=== PATIENT | female | born 2000 | race American Indian/Alaskan Native ===

== ENCOUNTER 2018-03-30 00:09 | Emergency (ER) | payer MEDICAID, OTHER ==
[2018-03-30 00:32] VITALS: BP 101/64
--- NOTE | 2018-03-30 01:20 | EDM.PDOC ---
ED HPI GENERAL MEDICAL PROBLEM - General Chief Complaint: Genitourinary Problem Stated Complaint: UTI [id number] Time Seen by Provider: 03/30/18 00:30 Source of Information: Reports: Patient History Limitations: Reports: No Limitations - History of Present Illness INITIAL COMMENTS - FREE TEXT/NARRATIVE: c/o low pelvic pain, yellow discharge starting yesterday. Admits unprotected sex. 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 [No Known Home Meds] 06/02/16 [History] Past Medical History Respiratory History: Reports: Asthma SCREEN ROLLER History: Reports: Other (See Below) Other SCREEN ROLLER History: StD in November. Psychiatric History: Reports: Dementia Social & Family History - Family History Family Medical History: Noncontributory - Tobacco Use Smoking Status *Q: Current Every Day Smoker Years of Tobacco use: 3 Packs/Tins Daily: 1 - Caffeine Use Caffeine Use: Reports: Soda - Recreational Drug Use Recreational Drug Use: No ED ROS GENERAL - Review of Systems Review Of Systems: ROS reveals no pertinent complaints other than HPI. ED EXAM, RENAL/ - Physical Exam Exam: See Below Exam Limited By: No Limitations General Appearance: Alert, No Apparent Distress, Anxious Eye Exam: Bilateral Eye: PERRL Ears: Hearing Grossly Normal Throat/Mouth: Normal Inspection, Normal Voice Head: Atraumatic, Normocephalic Respiratory/Chest: No Respiratory Distress, Lungs Clear Cardiovascular: Normal Peripheral Pulses, Regular Rate, Rhythm GI/Abdominal: Normal Bowel Sounds, Soft, Tender (mild supropubic). No: Distended, Guarding (Female) Exam: Normal External Exam, Normal Speculum Exam, Adnexal Tenderness , Cervix Motion Tenderness Extremities: Normal Range of Motion Neurological: Alert, Oriented, Normal Cognition Psychiatric: Normal Affect Skin Exam: Warm, Dry, Intact, Normal Color Course - Vital Signs Last Recorded V/S: Last Vital Signs Temp 98.3 F 03/30/18 00:19 Pulse 104 H 03/30/18 00:19 Resp 16 03/30/18 00:19 BP 101/64 03/30/18 00:19 Pulse Ox 97 03/30/18 00:19 - Orders/Labs/Meds Orders: Active Orders 24 hr Category Date Time Status CHLAMYDIA AND GONORRHEA BY TMA Urgent Lab 03/30/18 00:40 Received HEP C VIRUS AB [REF] Urgent Lab 03/30/18 01:27 Received HIV 1,2 AB/AG COMBO SCREEN [REF] Urgent Lab 03/30/18 01:27 Received UA W/MICROSCOPIC [URIN] Stat Lab 03/30/18 00:40 Ordered Labs: Laboratory Tests 03/30/18 03/30/18 Range/Units 00:40 00:40 Urine Color Yellow (YELLOW) Urine Appearance Cloudy (CLEAR) Urine pH 7.0 (5.0-9.0) Ur Specific [place] 1.020 (1.005-1.030) Urine Protein 100 H (NEGATIVE) Urine Glucose (UA) Negative (NEGATIVE) Urine Ketones Negative (NEGATIVE) Urine Occult Blood Moderate H (NEGATIVE) Urine Nitrite Negative (NEGATIVE) Urine Bilirubin Negative (NEGATIVE) Urine Urobilinogen 0.2 (0.2-1.0) mg/dL Ur Leukocyte Esterase Large H (NEGATIVE) Urine RBC 40-50 H /HPF Urine WBC >100 H (0-5/HPF) /HPF Ur Epithelial Cells Rare /HPF Amorphous Sediment Rare (0/HPF) /HPF Urine Bacteria Few (0-FEW/HPF) /HPF Urine Mucus Rare /LPF Urine HCG, Qual Negative Meds: Medications Discontinued Medications Generic Name Dose Route Start Last Admin Trade Name Freq PRN Reason Stop Dose Admin Azithromycin 1,000 mg 03/30/18 01:13 03/30/18 01:23 Zithromax PO 03/30/18 01:14 1,000 mg ONETIME ONE Administration Ceftriaxone Sodium 250 mg/ 0 mg 03/30/18 01:13 03/30/18 01:24 Lidocaine HCl 0.9 ml IM 03/30/18 01:14 250 inj ONETIME ONE Administration Departure - Departure Time of Disposition: 01:21 Disposition: Home, Self-Care 01 Condition: Good Clinical Impression: UTI, Urinary tract infectious disease, High risk heterosexual behavior - Discharge Information *PRESCRIPTION DRUG MONITORING PROGRAM REVIEWED*: Not Applicable Instructions: Sexually Transmitted Disease, [id number] Referrals: PCP,None [Primary Care Provider] - Forms: ED Department Discharge Additional Instructions: macrobid one twice daily for one week practice safe sex test results return approximately one week tylenol or ibuprofen for discomfort - My Orders Last 24 Hours: My Active Orders 03/30/18 00:40 CHLAMYDIA AND GONORRHEA BY TMA Urgent UA W/MICROSCOPIC [URIN] Stat 03/30/18 01:27 HEP C VIRUS AB [REF] Urgent HIV 1,2 AB/AG COMBO SCREEN [REF] Urgent - Assessment/Plan Last 24 Hours: My Active Orders 03/30/18 00:40 CHLAMYDIA AND GONORRHEA BY TMA Urgent UA W/MICROSCOPIC [URIN] Stat 03/30/18 01:27 HEP C VIRUS AB [REF] Urgent HIV 1,2 AB/AG COMBO SCREEN [REF] Urgent
[2018-03-30] MEDS: Azithromycin 250 MG Tab PO ONE (01:23)
[2018-03-30] MEDS: cefTRIAXone 250 MG, Lidocaine 1% 0.9 ML IM ONE ×2 (01:24)
== END 2018-03-30 01:44 | disposition home or self-care (01) ==
LOC: DL.ED 00:09
DX: N39.0 Urinary tract infection, site not specified (principal); J45.909 Unspecified asthma, uncomplicated; F17.210 Nicotine dependence, cigarettes, uncomplicated; Z72.51 High risk heterosexual behavior
CPT/HCPCS: 36415; 81001; 81025; 86803; 87210; 87389; 87491; 87591; 96372; 99283; A9270-GY; J0696

== ENCOUNTER 2018-11-09 12:52 | Emergency (ER) | payer MEDICAID, OTHER ==
[2018-11-09 12:58] VITALS: BP 118/70; PULSE 93
[2018-11-09] MEDS ORDERED: cefTRIAXone 250 MG, Lidocaine 1% 0.9 ML IM ONE ×2 (14:05)
[2018-11-09] MEDS ORDERED: Azithromycin 250 MG Tab PO ONE (14:05)
--- NOTE | 2018-11-09 14:10 | EDM.PDOC ---
ED HPI GENERAL MEDICAL PROBLEM - General Chief Complaint: Genitourinary Problem Stated Complaint: UTI Time Seen by Provider: 11/09/18 13:58 Source of Information: Reports: Patient History Limitations: Reports: No Limitations - History of Present Illness INITIAL COMMENTS - FREE TEXT/NARRATIVE: This 18 yo female patient reports to the ED with urinary frequency and burning for the past 3 days. The patient reports she did have unprotected sexual intercourse prior to symptom onset and questions about possible STD's. Onset Date: 11/06/18 Duration: Constant, Getting Worse Location: Reports: Other Quality: Reports: Burning, Other (frequency) Severity: Moderate Improves with: Reports: None Worsens with: Reports: None Context: Reports: Other Associated Symptoms: Reports: No Other Symptoms Pelvic Pain Score (Numeric/FACES): 7 - Related Data Allergies Allergy/AdvReac Type Severity Reaction Status Date / Time No Known Allergies Allergy Verified 11/09/18 12:58 Home Meds: Home Meds . 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 Psychiatric History: Reports: Depression, Suicide Attempt Social & Family History - Family History Family Medical History: Noncontributory - Tobacco Use Smoking Status *Q: Current Every Day Smoker Years of Tobacco use: 2 Packs/Tins Daily: 0.2 Second Hand Smoke Exposure: Yes - Caffeine Use Caffeine Use: Reports: None - Recreational Drug Use Recreational Drug Use: No ED ROS GENERAL - Review of Systems Review Of Systems: ROS reveals no pertinent complaints other than HPI. ED EXAM, RENAL/ - Physical Exam Exam: See Below Exam Limited By: No Limitations General Appearance: Alert, WD/WN, Mild Distress Eye Exam: Bilateral Eye: EOMI, Normal Inspection, PERRL Ears: Normal External Exam, Normal Canal, Hearing Grossly Normal, Normal TMs Nose: Normal Inspection, Normal Mucosa, No Blood Throat/Mouth: Normal Inspection, Normal Lips, Normal Teeth, Normal Gums, Normal Oropharynx, Normal Voice, No Airway Compromise Head: Atraumatic, Normocephalic Neck: Normal Inspection, Supple, Non-Tender, Full Range of Motion Respiratory/Chest: No Respiratory Distress, Lungs Clear, Normal Breath Sounds, No Accessory Muscle Use, Chest Non-Tender Cardiovascular: Normal Peripheral Pulses, Regular Rate, Rhythm, No Edema, No Gallop, No JVD, No Murmur, No Rub GI/Abdominal: Normal Bowel Sounds, Soft, Non-Tender, No Organomegaly, No Distention, No Abnormal Bruit, No Mass (Female) Exam: Deferred Rectal (Female) Exam: Deferred Back Exam: Normal Inspection, Full Range of Motion, NT Extremities: Normal Inspection, Normal Range of Motion, Non-Tender, Normal Capillary Refill, No Pedal Edema Neurological: Alert, Oriented, CN II-XII Intact, Normal Cognition, Normal Gait, Normal Reflexes, No Motor/Sensory Deficits Psychiatric: Normal Affect, Normal Mood Skin Exam: Warm, Dry, Intact, Normal Color, No Rash Lymphatic: No Adenopathy Course - Vital Signs Last Recorded V/S: Last Vital Signs Temp 36.4 C 11/09/18 12:56 Pulse 93 11/09/18 12:56 Resp 16 11/09/18 12:56 BP 118/70 11/09/18 12:56 Pulse Ox 99 11/09/18 12:56 - Orders/Labs/Meds Orders: Active Orders 24 hr Category Date Time Status CHLAMYDIA/GC NUCLEIC ACID AMP [MREF] Urgent Lab 11/09/18 13:59 Ordered CULTURE URINE [RM] Stat Lab 11/09/18 13:24 Received Labs: Laboratory Tests 11/09/18 11/09/18 11/09/18 Range/Units 13:24 13:24 13:24 Urine Color Yellow (YELLOW) Urine Appearance Cloudy (CLEAR) Urine pH 5.5 (5.0-9.0) Ur Specific [place] >= 1.030 (1.005-1.030) Urine Protein 100 H (NEGATIVE) Urine Glucose (UA) Negative (NEGATIVE) Urine Ketones Negative (NEGATIVE) Urine Occult Blood Moderate H (NEGATIVE) Urine Nitrite Positive H (NEGATIVE) Urine Bilirubin Negative (NEGATIVE) Urine Urobilinogen 0.2 (0.2-1.0) mg/dL Ur Leukocyte Esterase Moderate H (NEGATIVE) Urine RBC 10-20 H /HPF Urine WBC >100 H (0-5/HPF) /HPF Ur Epithelial Cells Moderate H /HPF Urine Bacteria Many H (0-FEW/HPF) /HPF Urine Mucus Few H /LPF Urine HCG, Qual Negative Urine Opiates Screen Negative (NEGATIVE) Ur Oxycodone Screen Negative (NEGATIVE) Urine Methadone Screen Negative (NEGATIVE) Ur Barbiturates Screen Negative (NEGATIVE) U Tricyclic Antidepress Negative (NEGATIVE) Ur Phencyclidine Scrn Negative (NEGATIVE) Ur Amphetamine Screen Negative (NEGATIVE) U Methamphetamines Scrn Negative (NEGATIVE) Urine MDMA Screen Negative (NEGATIVE) U Benzodiazepines Scrn Negative (NEGATIVE) Urine Cocaine Screen Negative (NEGATIVE) U Marijuana (THC) Screen Negative (NEGATIVE) Meds: Medications Discontinued Medications Generic Name Dose Route Start Last Admin Trade Name Freq PRN Reason Stop Dose Admin Azithromycin 1,000 mg 11/09/18 14:05 Zithromax PO 11/09/18 14:06 ONETIME ONE Ceftriaxone Sodium 250 mg/ 0 mg 11/09/18 14:05 Lidocaine HCl 0.9 ml IM 11/09/18 14:06 ONETIME ONE - Re-Assessments/Exams Free Text/Narrative Re-Assessment/Exam: 11/09/18 14:13 The patient was advised that her urine will be tested for Chlamydia and Gonorrhea, but she was treated for both of these during the visit. The patient' s urine will also be cultured to make sure the antibiotic she was started on will treat her current UTI. Departure - Departure Time of Disposition: 14:07 Disposition: Home, Self-Care 01 Condition: Fair Clinical Impression: Unprotected sexual intercourse UTI (urinary tract infection) Qualifiers: Urinary tract infection type: site unspecified Hematuria presence: with hematuria Qualified Code(s): N39.0 - Urinary tract infection, site not specified - Discharge Information *PRESCRIPTION DRUG MONITORING PROGRAM REVIEWED*: Not Applicable *COPY OF PRESCRIPTION DRUG MONITORING REPORT IN PATIENT SANJU: Not Applicable Instructions: Sexually Transmitted Disease, [id number], Urinary Tract Infection, Adult, [id number] Forms: ED Department Discharge Care Plan Goals: The patient was advised of the examination and lab results during the visit. The patient was given an injection of Rocephin and an oral dose of Azithromycin while in the ED. The patient was discharged with a script for Keflex (500 mg) to take 1 by mouth 2 times per day for 7 days. If the patient has any additional symptoms or concerns, the patient should follow-up with her primary care facility or community health for additional examination and testing. - My Orders Last 24 Hours: My Active Orders 11/09/18 13:24 CULTURE URINE [RM] Stat 11/09/18 13:59 CHLAMYDIA/GC NUCLEIC ACID AMP [MREF] Urgent - Assessment/Plan Last 24 Hours: My Active Orders 11/09/18 13:24 CULTURE URINE [RM] Stat 11/09/18 13:59 CHLAMYDIA/GC NUCLEIC ACID AMP [MREF] Urgent
== END 2018-11-09 14:20 | disposition home or self-care (01) ==
LOC: DL.ED 12:52
DX: N39.0 Urinary tract infection, site not specified (principal); F17.210 Nicotine dependence, cigarettes, uncomplicated; Z11.3 Encounter for screening for infections with a predominantly sexual mode of transmission
CPT/HCPCS: 80305; 81001; 81025; 87086; 87088; 87186; 87491; 87591; 96372; 99283; A9270; J0696; J2001

== ENCOUNTER 2019-10-31 22:54 | Emergency (ER) | payer MEDICAID, OTHER ==
[2019-10-31 23:31] VITALS: BP 130/78; PULSE 116
[2019-10-31] MEDS ORDERED: metroNIDAZOLE 250 MG Tab PO ONE (23:59)
[2019-11-01] MEDS ORDERED: Azithromycin 250 MG Tab PO ONE
--- NOTE | 2019-11-01 00:06 | EDM.PDOC ---
ED HPI GENERAL MEDICAL PROBLEM - General Chief Complaint: Genitourinary Problem Stated Complaint: STD? Time Seen by Provider: 11/01/19 00:01 Source of Information: Reports: Patient History Limitations: Reports: No Limitations - History of Present Illness INITIAL COMMENTS - FREE TEXT/NARRATIVE: c/o few days h/o possible STD. Vaginal Pain Score (Numeric/FACES): 3 - Related Data Allergies Allergy/AdvReac Type Severity Reaction Status Date / Time No Known Allergies Allergy Verified 10/31/19 23:30 Home Meds: Home Meds . 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 Psychiatric History: Reports: Depression, Suicide Attempt Social & Family History - Family History Family Medical History: Noncontributory - Tobacco Use Smoking Status *Q: Current Every Day Smoker Years of Tobacco use: 5 Packs/Tins Daily: 0.1 - Caffeine Use Caffeine Use: Reports: None - Recreational Drug Use Recreational Drug Use: No ED ROS GENERAL - Review of Systems Review Of Systems: Comprehensive ROS is negative, except as noted in HPI. ED EXAM, RENAL/ - Physical Exam Exam: See Below Exam Limited By: No Limitations General Appearance: Alert, WD/WN, No Apparent Distress. No: Active Emesis Ears: Hearing Grossly Normal Throat/Mouth: Normal Voice, No Airway Compromise Head: Atraumatic Neck: Non-Tender, Full Range of Motion Respiratory/Chest: No Respiratory Distress Cardiovascular: Regular Rate, Rhythm GI/Abdominal: Soft, Non-Tender (Female) Exam: Deferred Neurological: Alert, Oriented, Normal Cognition, Normal Gait, No Motor/Sensory Deficits Psychiatric: Normal Affect, Normal Mood Skin Exam: Warm, Dry, Normal Color Lymphatic: No Adenopathy Course - Vital Signs Last Recorded V/S: Last Vital Signs Temp 36.4 C 10/31/19 23:30 Pulse 116 H 10/31/19 23:30 Resp 16 10/31/19 23:30 BP 130/78 10/31/19 23:30 Pulse Ox 100 10/31/19 23:30 - Orders/Labs/Meds Orders: Active Orders 24 hr Category Date Time Status CHLAMYDIA AND GONORRHEA BY TMA Routine Lab 10/31/19 22:55 Received CULTURE URINE [RM] Stat Lab 10/31/19 22:55 Received Labs: Laboratory Tests 10/31/19 Range/Units 22:55 Urine Color Yellow (YELLOW) Urine Appearance Slightly cloudy (CLEAR) Urine pH 6.5 (5.0-9.0) Ur Specific [place] >= 1.030 (1.005-1.030) Urine Protein Negative (NEGATIVE) Urine Glucose (UA) Negative (NEGATIVE) Urine Ketones Negative (NEGATIVE) Urine Occult Blood Trace-lysed H (NEGATIVE) Urine Nitrite Negative (NEGATIVE) Urine Bilirubin Negative (NEGATIVE) Urine Urobilinogen 0.2 (0.2-1.0) mg/dL Ur Leukocyte Esterase Moderate H (NEGATIVE) Urine RBC 0-5 /HPF Urine WBC 20-30 H (0-5/HPF) /HPF Ur Epithelial Cells Few (NOT SEEN) /HPF Amorphous Sediment Few (NOT SEEN) /HPF Urine Bacteria Few (0-FEW/HPF) /HPF Urine Mucus Rare (NOT SEEN) /LPF Urine Trichomonas Present H (NOT SEEN) /HPF Meds: Medications Discontinued Medications Generic Name Dose Route Start Last Admin Trade Name Freq PRN Reason Stop Dose Admin Azithromycin 1,000 mg 11/01/19 00:00 Zithromax PO 11/01/19 00:01 ONETIME ONE Metronidazole 2,000 mg 10/31/19 23:59 Metronidazole PO 11/01/19 00:00 ONETIME ONE - Re-Assessments/Exams Free Text/Narrative Re-Assessment/Exam: 11/01/19 00:06 results discussed with pt. Departure - Departure Time of Disposition: 00:06 Disposition: Home, Self-Care 01 Condition: Good Clinical Impression: STD (female) - Discharge Information Instructions: Sexually Transmitted Disease, [id number] Additional Instructions: 1) avoid intercourse for 2 week 2) follow up at clinic Sepsis Event Note - Evaluation Sepsis Screening Result: No Definite Risk - Focused Exam Vital Signs: Vital Signs Temp Pulse Resp BP Pulse Ox 10/31/19 23:30 36.4 C 116 H 16 130/78 100 Date Exam was Performed: 11/01/19 Time Exam was Performed: 00:01 - My Orders Last 24 Hours: My Active Orders 10/31/19 22:55 CHLAMYDIA AND GONORRHEA BY TMA Routine CULTURE URINE [RM] Stat - Assessment/Plan Last 24 Hours: My Active Orders 10/31/19 22:55 CHLAMYDIA AND GONORRHEA BY TMA Routine CULTURE URINE [RM] Stat
== END 2019-11-01 00:11 | disposition home or self-care (01) ==
LOC: DL.ED 22:54
DX: A64 Unspecified sexually transmitted disease (principal); F17.210 Nicotine dependence, cigarettes, uncomplicated
CPT/HCPCS: 81001; 87086; 87491; 87591; 99283; A9270

== ENCOUNTER 2019-11-22 11:11 | Emergency (ER) | payer MEDICAID, OTHER ==
[2019-11-22 11:51] VITALS: BP 125/82; PULSE 88
--- NOTE | 2019-11-22 11:58 | EDM.PDOC ---
ED HPI GENERAL MEDICAL PROBLEM - General Chief Complaint: Genitourinary Problem Stated Complaint: SHE SAYS BLADDER INFECTION Time Seen by Provider: 11/22/19 11:45 Source of Information: Reports: Patient, RN, RN Notes Reviewed History Limitations: Reports: No Limitations - History of Present Illness INITIAL COMMENTS - FREE TEXT/NARRATIVE: Pt c/o 2 days duration of painful urination. Denies fever, chills, N/V, or flank pain. Pt currently on menses. Denies any chance of . Onset: Gradual Duration: Constant Location: Reports: Other (Urinary) Quality: Reports: Ache, Burning Severity: Moderate Improves with: Reports: None Worsens with: Reports: Other (Urination) Associated Symptoms: Reports: No Other Symptoms - Related Data Allergies Allergy/AdvReac Type Severity Reaction Status Date / Time No Known Allergies Allergy Verified 10/31/19 23:30 Home Meds: Home Meds . 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 Psychiatric History: Reports: Depression, Suicide Attempt Social & Family History - Family History Family Medical History: Noncontributory - Tobacco Use Smoking Status *Q: Current Some Day Smoker Years of Tobacco use: 2 Packs/Tins Daily: 0.5 Used Tobacco, but Quit: No - Caffeine Use Caffeine Use: Reports: None - Recreational Drug Use Recreational Drug Use: No - Living Situation & Occupation Living situation: Reports: with Family ED ROS GENERAL - Review of Systems Review Of Systems: Comprehensive ROS is negative, except as noted in HPI. ED EXAM, RENAL/ - Physical Exam Exam: See Below Exam Limited By: No Limitations General Appearance: Alert, WD/WN, No Apparent Distress Head: Atraumatic, Normocephalic Respiratory/Chest: No Respiratory Distress Cardiovascular: Regular Rate, Rhythm GI/Abdominal: Normal Bowel Sounds, Soft, Non-Tender, No Organomegaly, No Distention, No Abnormal Bruit, No Mass (Female) Exam: Deferred Back Exam: Normal Inspection. No: CVA Tenderness (L), CVA Tenderness (R) Neurological: Alert, Oriented, No Motor/Sensory Deficits Psychiatric: Normal Mood Skin Exam: Warm, Dry, Intact Course - Vital Signs Last Recorded V/S: Last Vital Signs Temp 98.1 F 11/22/19 11:31 Pulse 88 11/22/19 11:31 Resp 18 11/22/19 11:31 BP 125/82 11/22/19 11:31 Pulse Ox 99 11/22/19 11:31 - Orders/Labs/Meds Labs: Laboratory Tests 11/22/19 Range/Units 11:30 Urine Color Yellow (YELLOW) Urine Appearance Turbid (CLEAR) Urine pH 6.0 (5.0-9.0) Ur Specific [place] >= 1.030 (1.005-1.030) Urine Protein 30 H (NEGATIVE) Urine Glucose (UA) Negative (NEGATIVE) Urine Ketones Negative (NEGATIVE) Urine Occult Blood Large H (NEGATIVE) Urine Nitrite Negative (NEGATIVE) Urine Bilirubin Negative (NEGATIVE) Urine Urobilinogen 0.2 (0.2-1.0) mg/dL Ur Leukocyte Esterase Small H (NEGATIVE) Urine RBC 50-75 H /HPF Urine WBC 75-100 H (0-5/HPF) /HPF Ur Epithelial Cells Few (NOT SEEN) /HPF Amorphous Sediment Few (NOT SEEN) /HPF Urine Bacteria Few (0-FEW/HPF) /HPF Urine Mucus Few H (NOT SEEN) /LPF Urinalysis Comment Departure - Departure Time of Disposition: 11:56 Disposition: Home, Self-Care 01 Condition: Good Clinical Impression: UTI (urinary tract infection) Qualifiers: Urinary tract infection type: site unspecified Hematuria presence: with hematuria Qualified Code(s): N39.0 - Urinary tract infection, site not specified - Discharge Information *PRESCRIPTION DRUG MONITORING PROGRAM REVIEWED*: Not Applicable *COPY OF PRESCRIPTION DRUG MONITORING REPORT IN PATIENT SANJU: Not Applicable Instructions: Urinary Tract Infection, Adult, [id number] Forms: ED Department Discharge Additional Instructions: Rx: Macrobid 100mg Rx: Pyridium 200mg *Turns urine orange. Drink plenty of water. Follow up in clinic for urine recheck if not improving in 3 days. Sepsis Event Note - Evaluation Sepsis Screening Result: No Definite Risk - Focused Exam Vital Signs: Vital Signs Temp Pulse Resp BP Pulse Ox 11/22/19 11:31 98.1 F 88 18 125/82 99 Date Exam was Performed: 11/22/19 Time Exam was Performed: 11:58
== END 2019-11-22 12:03 | disposition home or self-care (01) ==
LOC: DL.ED 11:11
DX: N39.0 Urinary tract infection, site not specified (principal); R31.9 Hematuria, unspecified; F17.210 Nicotine dependence, cigarettes, uncomplicated
CPT/HCPCS: 81001; 87086; 87088; 87186; 99283

== ENCOUNTER 2020-01-15 20:47 | Emergency (ER) | payer MEDICAID ==
[2020-01-15 21:03] VITALS: BP 125/77; PULSE 111
[2020-01-15 21:38] LABS: ANION GAP 14.7 mEq/L (7-13); CHLORIDE,CL 105 mmol/L (98-107); SODIUM,NA 139 mmol/L (136-145)
[2020-01-15 21:40] LABS: ACETAMINOPHEN 0 ug/mL (10-30 (Therapeutic))
--- NOTE | 2020-01-15 23:02 | EDM.PDOCBH ---
ED HPI GENERAL MEDICAL PROBLEM - General Chief Complaint: Drug or Alcohol Abuse Stated Complaint: TOOK A BUNCH OF PILLS LAST NIGHT.TIRED.. Time Seen by Provider: 01/15/20 22:00 Source of Information: Reports: Patient, Family, RN, RN Notes Reviewed History Limitations: Reports: No Limitations - History of Present Illness INITIAL COMMENTS - FREE TEXT/NARRATIVE: Patient presents to ER with her mother with complaint of taking pills last night. Patient states she was intoxicated, and she is unsure why she took the pills. She states she may have wanted to harm herself while she was drinking. She states she does not want to harm herself at this time, is not suicidal, and does not want to . Mother states the patient has been drinking alcohol frequently and she has been trying to make her understand how detrimental this can be to her health. Mother and patient states this is not the first time the patient has taken [id number] medications while being intoxicated. Patient states she is unsure of what she took and how much. Mother has a bag with acetaminophen and aspirin in it. Onset: Today, Sudden - Related Data Allergies Allergy/AdvReac Type Severity Reaction Status Date / Time No Known Allergies Allergy Verified 01/15/20 21:10 Home Meds: Home Meds . 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 Psychiatric History: Reports: Depression, Suicide Attempt Social & Family History - Family History Family Medical History: Noncontributory - Tobacco Use Smoking Status *Q: Current Every Day Smoker Years of Tobacco use: 2 Packs/Tins Daily: 0.2 - Caffeine Use Caffeine Use: Reports: Soda - Alcohol Use Date of Last Drink: 01/14/20 - Recreational Drug Use Recreational Drug Use: No - Living Situation & Occupation Living situation: Reports: with Family ED ROS GENERAL - Review of Systems Review Of Systems: Comprehensive ROS is negative, except as noted in HPI. ED EXAM, BEHAVIORAL HEALTH - Physical Exam Exam: See Below Exam Limited By: No Limitations General Appearance: Alert, WD/WN, No Apparent Distress Eye Exam: Bilateral Eye: EOMI, Normal Inspection Ears: Normal External Exam, Hearing Grossly Normal Nose: Normal Inspection Throat/Mouth: Normal Inspection, Normal Voice, No Airway Compromise Head: Atraumatic, Normocephalic Neck: Normal Inspection, Supple, Non-Tender, Full Range of Motion Respiratory/Chest: No Respiratory Distress, Lungs Clear, Normal Breath Sounds, No Accessory Muscle Use, Chest Non-Tender Cardiovascular: Normal Peripheral Pulses, Regular Rate, Rhythm, No Edema, No Gallop, No JVD, No Murmur, No Rub GI/Abdominal: Normal Bowel Sounds, Soft, Non-Tender, No Organomegaly, No Distention, No Abnormal Bruit, No Mass (Female) Exam: Deferred Rectal (Female) Exam: Deferred Back Exam: Normal Inspection, Full Range of Motion, NT Extremities: Normal Inspection, Normal Range of Motion, Non-Tender, Normal Capillary Refill, No Pedal Edema Neurological: Alert, Normal Mood/Affect, CN II-XII Intact, Normal Cognition, Normal Gait, Normal Reflexes, No Motor/Sensory Deficits, Oriented x 3 Psychiatric: Alert, Normal Affect, Normal Cognition, Normal Mood, Oriented, Other (Patient is irritated with being in the ER and with her mother.) Skin Exam: Warm, Dry, Intact, Normal color, No rash COURSE, BEHAVIORAL HEALTH COMP - Course Vital Signs: Last Vital Signs Temp 98.5 F 01/15/20 21: Pulse 111 H 01/15/20 21:01 Resp 20 01/15/20 21:01 BP 125/77 01/15/20 21:01 Pulse Ox 99 01/15/20 21:01 Orders, Labs, Meds: Laboratory Tests 01/15/20 01/15/20 01/15/20 Range/Units 21:01 21:01 21:01 WBC (5.0-10.0) 10^3/uL RBC (4.2-5.4) 10^6/uL Hgb (12.0-16.0) g/dL Hct (37.0-47.0) % MCV (80-100) fL MCH (27.0-34.0) pg MCHC (33.0-35.0) g/dL Plt Count (150-450) 10^3/uL Neut % (Auto) (42.2-75.2) % Lymph % (Auto) (20.5-50.1) % [place] % (Auto) (2-8) % Eos % (Auto) (1.0-3.0) % Baso % (Auto) (0.0-1.0) % Sodium (136-145) mmol/L Potassium (3.5-5.1) mmol/L Chloride (98-107) mmol/L Carbon Dioxide (21-32) mmol/L Anion Gap (7-13) mEq/L BUN (7-18) mg/dL Creatinine (0.55-1.02) mg/dL Est Cr Clr Drug Dosing mL/min Estimated GFR (MDRD) BUN/Creatinine Ratio (No establ ref range) Glucose (74-99) mg/dL Calcium (8.5-10.1) mg/dL Total Bilirubin (0.2-1.0) mg/dL AST (15-37) U/L ALT (14-59) U/L Alkaline Phosphatase (46-116) U/L Total Protein (6.4-8.2) g/dL Albumin (3.4-5.0) g/dL Globulin Albumin/Globulin Ratio Urine Color Yellow (YELLOW) Urine Appearance Slightly cloudy (CLEAR) Urine pH 6.5 (5.0-9.0) Ur Specific [place] >= 1.030 (1.005-1.030) Urine Protein Negative (NEGATIVE) Urine Glucose (UA) Negative (NEGATIVE) Urine Ketones Negative (NEGATIVE) Urine Occult Blood Moderate H (NEGATIVE) Urine Nitrite Negative (NEGATIVE) Urine Bilirubin Negative (NEGATIVE) Urine Urobilinogen 0.2 (0.2-1.0) mg/dL Ur Leukocyte Esterase Negative (NEGATIVE) Urine RBC 75-100 H /HPF Urine WBC 0-5 (0-5/HPF) /HPF Ur Epithelial Cells Many H (NOT SEEN) /HPF Urine Bacteria Many H (0-FEW/HPF) /HPF Urine Mucus Many H (NOT SEEN) /LPF Urine HCG, Qual Negative Salicylates (2.8-20(Therapeutic)) mg/dL Urine Opiates Screen Negative (NEGATIVE) Ur Oxycodone Screen Negative (NEGATIVE) Urine Methadone Screen Negative (NEGATIVE) Acetaminophen (10-30 (Therapeutic)) ug/mL Ur Barbiturates Screen Negative (NEGATIVE) U Tricyclic Antidepress Negative (NEGATIVE) Ur Phencyclidine Scrn Negative (NEGATIVE) Ur Amphetamine Screen Negative (NEGATIVE) U Methamphetamines Scrn Negative (NEGATIVE) Urine MDMA Screen Negative (NEGATIVE) U Benzodiazepines Scrn Negative (NEGATIVE) Urine Cocaine Screen Negative (NEGATIVE) U Marijuana (THC) Screen Negative (NEGATIVE) Ethyl Alcohol (0) mg/dL 01/15/20 01/15/20 01/15/20 Range/Units 21:10 21:10 21:10 WBC 9.5 (5.0-10.0) 10^3/uL RBC 4.74 (4.2-5.4) 10^6/uL Hgb 13.5 (12.0-16.0) g/dL Hct 41.2 (37.0-47.0) % MCV 86.9 (80-100) fL MCH 28.5 (27.0-34.0) pg MCHC 32.8 L (33.0-35.0) g/dL Plt Count 358 (150-450) 10^3/uL Neut % (Auto) 64.2 (42.2-75.2) % Lymph % (Auto) 22.9 (20.5-50.1) % [place] % (Auto) 7.6 (2-8) % Eos % (Auto) 5.1 H (1.0-3.0) % Baso % (Auto) 0.2 (0.0-1.0) % Sodium 139 (136-145) mmol/L Potassium 3.7 (3.5-5.1) mmol/L Chloride 105 (98-107) mmol/L Carbon Dioxide 23 (21-32) mmol/L Anion Gap 14.7 H (7-13) mEq/L BUN 8 (7-18) mg/dL Creatinine 0.91 (0.55-1.02) mg/dL Est Cr Clr Drug Dosing 84.45 mL/min Estimated GFR (MDRD) > 60 BUN/Creatinine Ratio 8.8 (No establ ref range) Glucose 80 (74-99) mg/dL Calcium 8.3 L (8.5-10.1) mg/dL Total Bilirubin 0.3 (0.2-1.0) mg/dL AST 15 (15-37) U/L ALT 24 (14-59) U/L Alkaline Phosphatase 107 (46-116) U/L Total Protein 7.5 (6.4-8.2) g/dL Albumin 3.6 (3.4-5.0) g/dL Globulin 3.9 Albumin/Globulin Ratio 0.9 Urine Color (YELLOW) Urine Appearance (CLEAR) Urine pH (5.0-9.0) Ur Specific [place] (1.005-1.030) Urine Protein (NEGATIVE) Urine Glucose (UA) (NEGATIVE) Urine Ketones (NEGATIVE) Urine Occult Blood (NEGATIVE) Urine Nitrite (NEGATIVE) Urine Bilirubin (NEGATIVE) Urine Urobilinogen (0.2-1.0) mg/dL Ur Leukocyte Esterase (NEGATIVE) Urine RBC /HPF Urine WBC (0-5/HPF) /HPF Ur Epithelial Cells (NOT SEEN) /HPF Urine Bacteria (0-FEW/HPF) /HPF Urine Mucus (NOT SEEN) /LPF Urine HCG, Qual Salicylates 16.2 (2.8-20(Therapeutic)) mg/dL Urine Opiates Screen (NEGATIVE) Ur Oxycodone Screen (NEGATIVE) Urine Methadone Screen (NEGATIVE) Acetaminophen 0 L (10-30 (Therapeutic)) ug/mL Ur Barbiturates Screen (NEGATIVE) U Tricyclic Antidepress (NEGATIVE) Ur Phencyclidine Scrn (NEGATIVE) Ur Amphetamine Screen (NEGATIVE) U Methamphetamines Scrn (NEGATIVE) Urine MDMA Screen (NEGATIVE) U Benzodiazepines Scrn (NEGATIVE) Urine Cocaine Screen (NEGATIVE) U Marijuana (THC) Screen (NEGATIVE) Ethyl Alcohol < 3 (0) mg/dL Discharge vs Psych Eval/Treatment:: 01/16/20 01:47 Agnieszka Smalls here from [facility] to evaluate the patient. Patient states she is not suicidal and does not want to . Agrees to counseling. Agrees to talking to the Crisis Line Rep tomorrow when they call. Patient promises she will not drink alcohol or take any over the counter medications. Patient states she would like to go stay with her sister, which the mother agrees with. Mother and patient are agreeable to the plan. Departure - Departure Time of Disposition: 22:59 Disposition: Home, Self-Care 01 Condition: Fair Clinical Impression: Alcohol abuse Tylenol ingestion Qualifiers: Encounter type: initial encounter Injury intent: intentional self-harm Qualified Code(s): T39.1X2A - Poisoning by 4-Aminophenol derivatives, intentional self-harm, initial encounter - Discharge Information *PRESCRIPTION DRUG MONITORING PROGRAM REVIEWED*: No *COPY OF PRESCRIPTION DRUG MONITORING REPORT IN PATIENT SANJU: No Instructions: Acetaminophen Overdose, Alcohol Abuse and Dependence Information, Adult, Supporting Someone With Self-Harming Behavior, Self-Harming Behavior Information Referrals: PCP,None [Primary Care Provider] - Forms: ED Department Discharge Additional Instructions: Refrain from drinking alcohol Take a call from the Crisis Line tomorrow Follow up at [facility] on Friday Return to the ER with any further problems Sepsis Event Note (ED) - Evaluation Sepsis Screening Result: No Definite Risk - Focused Exam Vital Signs: Vital Signs Temp Pulse Resp BP Pulse Ox 01/15/20 21:01 98.5 F 111 H 20 125/77 99
== END 2020-01-15 23:08 | disposition home or self-care (01) ==
LOC: DL.ED 20:47
DX: T39.1X2A Poisoning by 4-Aminophenol derivatives, intentional self-harm, initial encounter (principal); F10.129 Alcohol abuse with intoxication, unspecified; F17.210 Nicotine dependence, cigarettes, uncomplicated
CPT/HCPCS: 36415; 80053; 80305-QW; 80307; 81001; 81025; 85025; 99285

== ENCOUNTER 2020-03-15 22:01 | Emergency (ER) | payer MEDICAID ==
[2020-03-15 22:32] VITALS: BP 110/52; PULSE 93
[2020-03-15] MEDS ORDERED: Amoxicillin 500 MG Cap PO ONE (23:10)
--- NOTE | 2020-03-15 23:12 | EDM.PDOC ---
ED HPI GENERAL MEDICAL PROBLEM - General Chief Complaint: ENT Problem Stated Complaint: TONSILLITIS SWOLLEN, PER PATIENT Time Seen by Provider: 03/15/20 22:30 Source of Information: Reports: Patient, RN, RN Notes Reviewed - History of Present Illness INITIAL COMMENTS - FREE TEXT/NARRATIVE: Only 1-year-old female here today for throat pain. Patient has had 2 days of throat pain that she currently rates a constant 6 out of 10. She reports no fevers or chills. She has tried T for it at home and this has not helped. She is also tried Tylenol, with last dose at 3 PM today. She is also tried ibuprofe n and last dose was yesterday. Besides constant pain, patient states it also hurts to swallow. She has no ear pain or shortness of breath or runny nose or congestion. Patient has no other significant past medical history, and takes no medications on a daily basis. No allergies. Smokes 5 cigarettes/day. Onset: Gradual Onset Date: 03/13/20 Treatments YOUTH DIRECTOR: Reports: Acetaminophen Throat Pain Score (Numeric/FACES): 6 - Related Data Allergies Allergy/AdvReac Type Severity Reaction Status Date / Time No Known Allergies Allergy Verified 03/15/20 22:32 Home Meds: Home Meds . 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 Psychiatric History: Reports: Depression, Suicide Attempt Social & Family History - Family History Family Medical History: Noncontributory - Tobacco Use Smoking Status *Q: Current Every Day Smoker Years of Tobacco use: 6 Packs/Tins Daily: 0.2 - Caffeine Use Caffeine Use: Reports: Soda, Tea - Alcohol Use Date of Last Drink: 03/12/20 - Recreational Drug Use Recreational Drug Use: No - Living Situation & Occupation Living situation: Reports: with Family ED ROS ENT - Review of Systems Review Of Systems: Comprehensive ROS is negative, except as noted in HPI. ED EXAM, ENT - Physical Exam Exam: See Below Exam Limited By: No Limitations General Appearance: Alert, WD/WN, No Apparent Distress Eye Exam: Bilateral Eye: EOMI, Normal Inspection Ears: Normal External Exam, Normal Canal, Hearing Grossly Normal, Normal TMs Nose: Normal Inspection, Normal Mucousa, No Blood Mouth/Throat: Throat Pain, Tonsillar Erythema, Tonsillar Exudates Head: Atraumatic, Normocephalic Neck: Normal Inspection, Supple, Non-Tender, Full Range of Motion Respiratory/Chest: No Respiratory Distress, Lungs Clear, Normal Breath Sounds, No Accessory Muscle Use, Chest Non-Tender Cardiovascular: Normal Peripheral Pulses, Regular Rate, Rhythm, No Edema, No Gallop, No JVD, No Murmur, No Rub GI/Abdominal: Normal Bowel Sounds, Soft, Non-Tender, No Organomegaly, No Distention, No Abnormal Bruit, No Mass (Female) Exam: Deferred Rectal (Female) Exam: Deferred Back: Normal Inspection, Full Range of Motion Extremities: Normal Inspection, Normal Range of Motion, Non-Tender, No Pedal Edema, Normal Capillary Refill Neurological: Alert, Oriented, CN II-XII Intact, Normal Cognition, Normal Gait, Normal Reflexes, No Motor/Sensory Deficits Psychiatric: Normal Affect, Normal Mood Skin: Warm, Dry, Intact, Normal Color, No Rash Lymphatic: No Adenopathy Course - Vital Signs Last Recorded V/S: Last Vital Signs Temp 98.6 F 03/15/20 22:13 Pulse 93 03/15/20 22:13 Resp 18 03/15/20 22:13 BP 110/52 L 03/15/20 22:13 Pulse Ox 100 03/15/20 22:13 - Orders/Labs/Meds Orders: Active Orders 24 hr Category Date Time Status CULTURE STREP A CONFIRMATION [] Stat Lab 03/15/20 22:10 Results STREP SCRN A RAPID W CULT CONF [] Stat Lab 03/15/20 22:10 Results Labs: Rapid Strep: NEGATIVE Meds: Medications Discontinued Medications Generic Name Dose Route Start Last Admin Trade Name Timoq PRN Reason Stop Dose Admin Amoxicillin 500 mg 03/15/20 23:10 03/15/20 23:15 Amoxil PO 03/15/20 23:11 500 mg ONETIME ONE Administration Departure - Departure Time of Disposition: 23:11 Disposition: Home, Self-Care 01 Condition: Good Clinical Impression: Tonsillitis Pharyngitis Qualifiers: Pharyngitis/tonsillitis etiology: unspecified etiology Qualified Code(s): J02.9 - Acute pharyngitis, unspecified - Discharge Information *PRESCRIPTION DRUG MONITORING PROGRAM REVIEWED*: No *COPY OF PRESCRIPTION DRUG MONITORING REPORT IN PATIENT SANJU: No Instructions: Tonsillitis, [id number], Pharyngitis, [id number] Forms: ED Department Discharge Additional Instructions: May use Tylenol and/or ibuprofen as directed for pain Drink plenty of water Rx: Amoxicillin Follow-up with your primary care provider in the clinic if no improvement Sepsis Event Note (ED) - Evaluation Sepsis Screening Result: No Definite Risk - Focused Exam Vital Signs: Vital Signs Temp Pulse Resp BP Pulse Ox 03/15/20 22:13 98.6 F 93 18 110/52 L 100 - My Orders Last 24 Hours: My Active Orders 03/15/20 22:10 CULTURE STREP A CONFIRMATION [RM] Stat STREP SCRN A RAPID W CULT CONF [RM] Stat - Assessment/Plan Last 24 Hours: My Active Orders 03/15/20 22:10 CULTURE STREP A CONFIRMATION [RM] Stat STREP SCRN A RAPID W CULT CONF [RM] Stat
== END 2020-03-15 23:15 | disposition home or self-care (01) ==
LOC: DL.ED 22:01
DX: J03.90 Acute tonsillitis, unspecified (principal); J45.909 Unspecified asthma, uncomplicated; F17.210 Nicotine dependence, cigarettes, uncomplicated
CPT/HCPCS: 87081; 87430; 99283; A9270; 99282

== ENCOUNTER 2020-05-26 15:20 | Emergency (ER) | payer MEDICAID ==
[2020-05-26 15:32] VITALS: BP 124/81; PULSE 103
--- NOTE | 2020-05-26 15:42 | EDM.PDOC ---
<Xander Yen - Last Filed: 05/26/20 21:08> ED HPI GENERAL MEDICAL PROBLEM - General Chief Complaint: Respiratory Problem Stated Complaint: CHEST HURTS HARD TO BREATH Time Seen by Provider: 05/26/20 20:10 Source of Information: Reports: Patient History Limitations: Reports: No Limitations - History of Present Illness INITIAL COMMENTS - FREE TEXT/NARRATIVE: This 20 yo female patient reports to the ED with a sore throat (2 days), chest tightness and shortness of breath. The patient reports a history of asthma. Onset: Gradual Duration: Day(s):, Constant, Getting Worse Location: Reports: Neck, Chest Quality: Reports: Ache Severity: Moderate Improves with: Reports: None Worsens with: Reports: None Context: Reports: Other Associated Symptoms: Reports: No Other Symptoms - Related Data Allergies Allergy/AdvReac Type Severity Reaction Status Date / Time No Known Allergies Allergy Verified 03/15/20 22:32 Home Meds: Home Meds . [No Known Home Meds] 11/09/18 [History] ED ROS GENERAL - Review of Systems Review Of Systems: Comprehensive ROS is negative, except as noted in HPI. ED EXAM, GENERAL - Physical Exam Exam: See Below Exam Limited By: No Limitations General Appearance: Alert, WD/WN, Mild Distress Eye Exam: Bilateral Eye: EOMI, Normal Inspection, PERRL Ears: Normal External Exam, Normal Canal, Hearing Grossly Normal, Normal TMs Nose: Normal Inspection, Normal Mucosa, No Blood Throat/Mouth: Normal Inspection, Normal Lips, Normal Teeth, Normal Gums, Normal Voice, No Airway Compromise, Inflammation (tonsils with pustules) Head: Atraumatic, Normocephalic Neck: Normal Inspection, Supple, Non-Tender, Full Range of Motion Respiratory/Chest: Rhonchi, Wheezing Cardiovascular: Normal Peripheral Pulses, Regular Rate, Rhythm, No Edema, No Gallop, No JVD, No Murmur, No Rub GI/Abdominal: Normal Bowel Sounds, Soft, Non-Tender, No Organomegaly, No Distention, No Abnormal Bruit, No Mass (Female) Exam: Deferred Rectal (Female) Exam: Deferred Back Exam: Normal Inspection, Full Range of Motion, NT Extremities: Normal Inspection, Normal Range of Motion, Non-Tender, Normal Capillary Refill, No Pedal Edema Neurological: Alert Psychiatric: Normal Affect, Normal Mood Skin Exam: Warm, Dry, Intact, Normal Color, No Rash Lymphatic: No Adenopathy Departure - Departure Time of Disposition: 21:08 Disposition: Home, Self-Care 01 Condition: Fair Clinical Impression: Bronchitis Pharyngitis Qualifiers: Pharyngitis/tonsillitis etiology: unspecified etiology Qualified Code(s): J02.9 - Acute pharyngitis, unspecified - Discharge Information *PRESCRIPTION DRUG MONITORING PROGRAM REVIEWED*: Not Applicable *COPY OF PRESCRIPTION DRUG MONITORING REPORT IN PATIENT SANJU: Not Applicable Instructions: Acute Bronchitis, Adult, [id number], Pharyngitis, [id number] Forms: ED Department Discharge Care Plan Goals: The patient was advised of the examination, lab and x-ray results during the visit. The patient was given an oral dose of Augmentin while in the ED. The patient was discharged with a script for Augmentin (500/125) #20 to take 1 by mouth 2 times per day for 10 days. If the patient has any additional symptoms or concerns, the patient should either return to the emergency department or visit her primary care facility. 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 Psychiatric History: Reports: Depression, Suicide Attempt Social & Family History - Family History Family Medical History: Noncontributory - Caffeine Use Caffeine Use: Reports: Soda, Tea - Living Situation & Occupation Living situation: Reports: with Family Course - Vital Signs Last Recorded V/S: Last Vital Signs Temp 97.3 F 05/26/20 15:30 Pulse 103 H 05/26/20 15:30 Resp 16 05/26/20 15:30 BP 124/81 05/26/20 15:30 Pulse Ox 96 05/26/20 15:30 - Orders/Labs/Meds Orders: Active Orders 24 hr Category Date Time Status CULTURE BLOOD [BC] Stat Lab 05/26/20 19:41 Received CULTURE STREP A CONFIRMATION [RM] Stat Lab 05/26/20 20:27 Results CULTURE URINE [RM] Stat Lab 05/26/20 20:27 Received STREP SCRN A RAPID W CULT CONF [RM] Stat Lab 05/26/20 20:27 Results Isolation [COMM] Routine Oth 05/26/20 19:27 Active Labs: Laboratory Tests 05/26/20 05/26/20 05/26/20 Range/Units 19:41 19:41 19:41 WBC 11.6 H (5.0-10.0) 10^3/uL RBC 4.85 (4.2-5.4) 10^6/uL Hgb 13.9 (12.0-16.0) g/dL Hct 41.0 (37.0-47.0) % MCV 84.5 (80-100) fL MCH 28.7 (27.0-34.0) pg MCHC 33.9 (33.0-35.0) g/dL Plt Count 360 (150-450) 10^3/uL Neut % (Auto) 77.1 H (42.2-75.2) % Lymph % (Auto) 14.1 L (20.5-50.1) % [place] % (Auto) 6.5 (2-8) % Eos % (Auto) 2.0 (1.0-3.0) % Baso % (Auto) 0.3 (0.0-1.0) % Sodium 138 (136-145) mmol/L Potassium 3.6 (3.5-5.1) mmol/L Chloride 100 (98-107) mmol/L Carbon Dioxide 24 (21-32) mmol/L Anion Gap 17.6 H (7-13) mEq/L BUN 11 (7-18) mg/dL Creatinine 0.77 (0.55-1.02) mg/dL Est Cr Clr Drug Dosing 90.64 mL/min Estimated GFR (MDRD) > 60 BUN/Creatinine Ratio 14.3 (No establ ref range) Glucose 83 (74-99) mg/dL Lactic Acid 0.9 (0.4-2.0) mmol/L Calcium 9.1 (8.5-10.1) mg/dL Total Bilirubin 0.8 (0.2-1.0) mg/dL AST 20 (15-37) U/L ALT 33 (14-59) U/L Alkaline Phosphatase 132 H (46-116) U/L Total Protein 8.4 H (6.4-8.2) g/dL Albumin 4.0 (3.4-5.0) g/dL Globulin 4.4 Albumin/Globulin Ratio 0.9 Urine Color (YELLOW) Urine Appearance (CLEAR) Urine pH (5.0-9.0) Ur Specific [place] (1.005-1.030) Urine Protein (NEGATIVE) Urine Glucose (UA) (NEGATIVE) Urine Ketones (NEGATIVE) Urine Occult Blood (NEGATIVE) Urine Nitrite (NEGATIVE) Urine Bilirubin (NEGATIVE) Urine Urobilinogen (0.2-1.0) mg/dL Ur Leukocyte Esterase (NEGATIVE) Urine RBC /HPF Urine WBC (0-5/HPF) /HPF Ur Epithelial Cells (NOT SEEN) /HPF Amorphous Sediment (NOT SEEN) /HPF Urine Bacteria (0-FEW/HPF) /HPF Urine Mucus (NOT SEEN) /LPF Urine HCG, Qual Urine Opiates Screen (NEGATIVE) Ur Oxycodone Screen (NEGATIVE) Urine Methadone Screen (NEGATIVE) Ur Barbiturates Screen (NEGATIVE) U Tricyclic Antidepress (NEGATIVE) Ur Phencyclidine Scrn (NEGATIVE) Ur Amphetamine Screen (NEGATIVE) U Methamphetamines Scrn (NEGATIVE) Urine MDMA Screen (NEGATIVE) U Benzodiazepines Scrn (NEGATIVE) Urine Cocaine Screen (NEGATIVE) U Marijuana (THC) Screen (NEGATIVE) SARS CoV-2 RNA Rapid MALENA (NEGATIVE) 05/26/20 05/26/20 05/26/20 Range/Units 19:51 20:27 20:27 WBC (5.0-10.0) 10^3/uL RBC (4.2-5.4) 10^6/uL Hgb (12.0-16.0) g/dL Hct (37.0-47.0) % MCV (80-100) fL MCH (27.0-34.0) pg MCHC (33.0-35.0) g/dL Plt Count (150-450) 10^3/uL Neut % (Auto) (42.2-75.2) % Lymph % (Auto) (20.5-50.1) % [place] % (Auto) (2-8) % Eos % (Auto) (1.0-3.0) % Baso % (Auto) (0.0-1.0) % Sodium (136-145) mmol/L Potassium (3.5-5.1) mmol/L Chloride (98-107) mmol/L Carbon Dioxide (21-32) mmol/L Anion Gap (7-13) mEq/L BUN (7-18) mg/dL Creatinine (0.55-1.02) mg/dL Est Cr Clr Drug Dosing mL/min Estimated GFR (MDRD) BUN/Creatinine Ratio (No establ ref range) Glucose (74-99) mg/dL Lactic Acid (0.4-2.0) mmol/L Calcium (8.5-10.1) mg/dL Total Bilirubin (0.2-1.0) mg/dL AST (15-37) U/L ALT (14-59) U/L Alkaline Phosphatase (46-116) U/L Total Protein (6.4-8.2) g/dL Albumin (3.4-5.0) g/dL Globulin Albumin/Globulin Ratio Urine Color Dark yellow (YELLOW) Urine Appearance Cloudy (CLEAR) Urine pH 5.5 (5.0-9.0) Ur Specific [place] >= 1.030 (1.005-1.030) Urine Protein 100 H (NEGATIVE) Urine Glucose (UA) Negative (NEGATIVE) Urine Ketones 40 H (NEGATIVE) Urine Occult Blood Large H (NEGATIVE) Urine Nitrite Negative (NEGATIVE) Urine Bilirubin Negative (NEGATIVE) Urine Urobilinogen 0.2 (0.2-1.0) mg/dL Ur Leukocyte Esterase Trace H (NEGATIVE) Urine RBC >100 H /HPF Urine WBC 10-20 H (0-5/HPF) /HPF Ur Epithelial Cells Few (NOT SEEN) /HPF Amorphous Sediment Few (NOT SEEN) /HPF Urine Bacteria Few (0-FEW/HPF) /HPF Urine Mucus Moderate H (NOT SEEN) /LPF Urine HCG, Qual Negative Urine Opiates Screen (NEGATIVE) Ur Oxycodone Screen (NEGATIVE) Urine Methadone Screen (NEGATIVE) Ur Barbiturates Screen (NEGATIVE) U Tricyclic Antidepress (NEGATIVE) Ur Phencyclidine Scrn (NEGATIVE) Ur Amphetamine Screen (NEGATIVE) U Methamphetamines Scrn (NEGATIVE) Urine MDMA Screen (NEGATIVE) U Benzodiazepines Scrn (NEGATIVE) Urine Cocaine Screen (NEGATIVE) U Marijuana (THC) Screen (NEGATIVE) SARS CoV-2 RNA Rapid MALENA Negative (NEGATIVE) 05/26/20 Range/Units 20:27 WBC (5.0-10.0) 10^3/uL RBC (4.2-5.4) 10^6/uL Hgb (12.0-16.0) g/dL Hct (37.0-47.0) % MCV (80-100) fL MCH (27.0-34.0) pg MCHC (33.0-35.0) g/dL Plt Count (150-450) 10^3/uL Neut % (Auto) (42.2-75.2) % Lymph % (Auto) (20.5-50.1) % [place] % (Auto) (2-8) % Eos % (Auto) (1.0-3.0) % Baso % (Auto) (0.0-1.0) % Sodium (136-145) mmol/L Potassium (3.5-5.1) mmol/L Chloride (98-107) mmol/L Carbon Dioxide (21-32) mmol/L Anion Gap (7-13) mEq/L BUN (7-18) mg/dL Creatinine (0.55-1.02) mg/dL Est Cr Clr Drug Dosing mL/min Estimated GFR (MDRD) BUN/Creatinine Ratio (No establ ref range) Glucose (74-99) mg/dL Lactic Acid (0.4-2.0) mmol/L Calcium (8.5-10.1) mg/dL Total Bilirubin (0.2-1.0) mg/dL AST (15-37) U/L ALT (14-59) U/L Alkaline Phosphatase (46-116) U/L Total Protein (6.4-8.2) g/dL Albumin (3.4-5.0) g/dL Globulin Albumin/Globulin Ratio Urine Color (YELLOW) Urine Appearance (CLEAR) Urine pH (5.0-9.0) Ur Specific [place] (1.005-1.030) Urine Protein (NEGATIVE) Urine Glucose (UA) (NEGATIVE) Urine Ketones (NEGATIVE) Urine Occult Blood (NEGATIVE) Urine Nitrite (NEGATIVE) Urine Bilirubin (NEGATIVE) Urine Urobilinogen (0.2-1.0) mg/dL Ur Leukocyte Esterase (NEGATIVE) Urine RBC /HPF Urine WBC (0-5/HPF) /HPF Ur Epithelial Cells (NOT SEEN) /HPF Amorphous Sediment (NOT SEEN) /HPF Urine Bacteria (0-FEW/HPF) /HPF Urine Mucus (NOT SEEN) /LPF Urine HCG, Qual Urine Opiates Screen Negative (NEGATIVE) Ur Oxycodone Screen Negative (NEGATIVE) Urine Methadone Screen Negative (NEGATIVE) Ur Barbiturates Screen Negative (NEGATIVE) U Tricyclic Antidepress Negative (NEGATIVE) Ur Phencyclidine Scrn Negative (NEGATIVE) Ur Amphetamine Screen Positive H (NEGATIVE) U Methamphetamines Scrn Positive H (NEGATIVE) Urine MDMA Screen Negative (NEGATIVE) U Benzodiazepines Scrn Negative (NEGATIVE) Urine Cocaine Screen Negative (NEGATIVE) U Marijuana (THC) Screen Negative (NEGATIVE) SARS CoV-2 RNA Rapid MALENA (NEGATIVE) Meds: Medications Discontinued Medications Generic Name Dose Route Start Last Admin Trade Name Freq PRN Reason Stop Dose Admin Amoxicillin/Clavulanate Potassium 1 tab 05/26/20 21:06 05/26/20 21:22 Augmentin 500 Mg\125 Mg PO 05/26/20 21:07 1 tab ONETIME ONE Administration Sepsis Event Note (ED) - Evaluation Sepsis Screening Result: No Definite Risk
[2020-05-26 20:06] LABS: ANION GAP 17.6 mEq/L (7-13); CHLORIDE,CL 100 mmol/L (98-107); SODIUM,NA 138 mmol/L (136-145)
[2020-05-26] MEDS ORDERED: Amoxicillin/Clavulanate K 500-125 MG Tab PO ONE (21:06)
--- NOTE | 2020-05-26 21:18 | CR ---
PROCEDURE INFORMATION: Exam: XR Chest, 2 Views Exam date and time: 05/26/2020 8:50 PM Age: 20 years old Clinical indication: Cough and shortness of breath; Chest pain; Type not specified; Additional info: Short of breath TECHNIQUE: Imaging protocol: XR of the chest Views: 2 views. COMPARISON: No relevant prior studies available. FINDINGS: Lungs: patchy infiltrates in the lower lung coughlin. Pleural space: Unremarkable. No pleural effusion. No pneumothorax. Heart/Mediastinum: Unremarkable. No cardiomegaly. Bones/joints: Unremarkable. IMPRESSION: Patchy infiltrates in the lower lung coughlin.
== END 2020-05-26 21:22 | disposition home or self-care (01) ==
LOC: DL.ED 15:20
DX: J02.9 Acute pharyngitis, unspecified (principal); J40 Bronchitis, not specified as acute or chronic; Z20.828 Contact with and (suspected) exposure to other viral communicable diseases
CPT/HCPCS: 36415; 71046; 80053; 80305; 81001; 81025; 83605; 85025; 87040; 87077; 87081; 87086; 87186; 87430; 87635; 87804; 99285; A9270; U0002

== ENCOUNTER 2020-09-21 16:57 | Emergency (ER) | payer MEDICAID ==
[2020-09-21 17:10] VITALS: BP 115/96
[2020-09-21] MEDS ORDERED: methylPREDNISolone Sodium Succinate 125 MG/2 ML SDV IM ONE (17:20)
[2020-09-21] MEDS ORDERED: Albuterol/Ipratropium 3.0-0.5 MG/3 ML Neb Soln NEB ONE (17:20)
[2020-09-21] MEDS ORDERED: cefTRIAXone 1 GM, Lidocaine 1% 2.1 ML IM ONE ×2 (17:20)
--- NOTE | 2020-09-21 17:37 | EDM.PDOC ---
ED HPI GENERAL MEDICAL PROBLEM - General Chief Complaint: Respiratory Problem Stated Complaint: ASMATIC, COUGHING Time Seen by Provider: 09/21/20 17:20 Source of Information: Reports: Patient History Limitations: Reports: No Limitations - History of Present Illness INITIAL COMMENTS - FREE TEXT/NARRATIVE: This 20 yo female patient reports to the ED with a 2 day history of increased shortness of breath and cough. The patient reports she does have asthma, but ran out of her inhaler and is not able to get another inhaler for 2 months. The patient reports she has not taken any over the counter medications for temporary symptom relief. Onset Date: 09/19/20 Duration: Constant, Getting Worse Location: Reports: Chest Quality: Reports: Other Severity: Moderate Improves with: Reports: None Worsens with: Reports: None Context: Reports: Other Associated Symptoms: Reports: Cough, Shortness of Breath Chest Pain Score (Numeric/FACES): 4 - Related Data Allergies Allergy/AdvReac Type Severity Reaction Status Date / Time No Known Allergies Allergy Verified 09/21/20 17:10 Home Meds: Home Meds . 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 Musculoskeletal History: Reports: None Neurological History: Reports: None Psychiatric History: Reports: Depression, Suicide Attempt Endocrine/Metabolic History: Reports: None Hematologic History: Reports: None Immunologic History: Reports: None Oncologic (Cancer) History: Reports: None Dermatologic History: Reports: None - Infectious Disease History Infectious Disease History: Reports: None - Past Surgical History Head Surgeries/Procedures: Reports: None Social & Family History - Family History Family Medical History: No Pertinent Family History - Tobacco Use Tobacco Use Status *Q: Current Every Day Tobacco User Years of Tobacco use: 2 Packs/Tins Daily: 0.5 Second Hand Smoke Exposure: No - Caffeine Use Caffeine Use: Reports: Soda - Recreational Drug Use Recreational Drug Use: No - Living Situation & Occupation Living situation: Reports: with Family ED ROS GENERAL - Review of Systems Review Of Systems: Comprehensive ROS is negative, except as noted in HPI. ED EXAM, GENERAL - Physical Exam Exam: See Below Exam Limited By: No Limitations General Appearance: Alert, WD/WN, Moderate Distress Eye Exam: Bilateral Eye: EOMI, Normal Inspection, PERRL Ears: Normal External Exam, Normal Canal, Hearing Grossly Normal, Normal TMs Nose: Normal Inspection, Normal Mucosa, No Blood Throat/Mouth: Normal Inspection, Normal Lips, Normal Teeth, Normal Gums, Normal Oropharynx, Normal Voice, No Airway Compromise Head: Atraumatic, Normocephalic Neck: Normal Inspection, Supple, Non-Tender, Full Range of Motion Respiratory/Chest: Decreased Breath Sounds, Rhonchi, Wheezing, Prolonged Expiration Cardiovascular: Normal Peripheral Pulses, Regular Rate, Rhythm, No Edema, No Gallop, No JVD, No Murmur, No Rub GI/Abdominal: Normal Bowel Sounds, Soft, Non-Tender, No Organomegaly, No Distention, No Abnormal Bruit, No Mass (Female) Exam: Deferred Rectal (Female) Exam: Deferred Back Exam: Normal Inspection, Full Range of Motion, NT Extremities: Normal Inspection, Normal Range of Motion, Non-Tender, Normal Capillary Refill, No Pedal Edema Neurological: Alert, Oriented, CN II-XII Intact, Normal Cognition, Normal Gait, Normal Reflexes, No Motor/Sensory Deficits Psychiatric: Normal Affect, Normal Mood Skin Exam: Warm, Dry, Intact, Normal Color, No Rash Lymphatic: No Adenopathy Course - Vital Signs Last Recorded V/S: Last Vital Signs Temp 36.2 C 09/21/20 17:06 Pulse 119 H 09/21/20 17:06 Resp 20 09/21/20 17:06 BP 115/96 H 09/21/20 17:06 Pulse Ox 95 09/21/20 17:06 - Orders/Labs/Meds Orders: Active Orders 24 hr Category Date Time Status RT Aerosol Therapy [RC] ASDIRECTED Care 09/21/20 17:20 Active Meds: Medications Discontinued Medications Generic Name Dose Route Start Last Admin Trade Name Freq PRN Reason Stop Dose Admin Albuterol/Ipratropium 3 ml 09/21/20 17:20 Duoneb 3.0-0.5 Mg/3 Ml NEB 09/21/20 17:21 ONETIME ONE Ceftriaxone Sodium 1 gm/ 0 gm 09/21/20 17:20 Lidocaine HCl 2.1 ml IM 09/21/20 17:21 ONETIME ONE Methylprednisolone Sodium Succinate 125 mg 09/21/20 17:20 Solu-Medrol IM 09/21/20 17:21 ONETIME ONE - Re-Assessments/Exams Free Text/Narrative Re-Assessment/Exam: 09/21/20 17:48 Reassessment revealed faint wheezing to the right side,but overall better air exchange. Departure - Departure Time of Disposition: 17:48 Disposition: Home, Self-Care 01 Condition: Fair Clinical Impression: Bronchitis Exacerbation of asthma Qualifiers: Asthma severity: moderate Asthma persistence: persistent Qualified Code(s): J45.41 - Moderate persistent asthma with (acute) exacerbation - Discharge Information *PRESCRIPTION DRUG MONITORING PROGRAM REVIEWED*: Not Applicable *COPY OF PRESCRIPTION DRUG MONITORING REPORT IN PATIENT SANJU: Not Applicable Instructions: Upper Respiratory Infection, Adult, [id number], Asthma, Adult, [id number] Care Plan Goals: The patient was advised of the examination results during the visit. The patient was given a DuoNeb treatment, an injection of SoluMedrol and an injection of Rocephin while in the ED. The patient was discharged with prescriptions for: 1) Azithromycin (250 mg) #6 to take 2 by mouth on day 1, 1 by mouth on days 2-5, 2) Prednisone (20 mg) #10 to take 2 by mouth daily for 5 days, 3) Albuterol MDI # 1 inhaler to use 2 puffs up to 4 times per day as needed and 4) Albuterol Nebulizer Solution (2.5/3) # 1 box to do 1 treatment 4 times per day as needed. The patient should follow-up with her primary care facility next week for continued evaluation and further management. If the patient has any additional symptoms or concerns, the patient should either return to the emergency department or visit her primary care facility. Sepsis Event Note (ED) - Evaluation Sepsis Screening Result: No Definite Risk - Focused Exam Vital Signs: Vital Signs Temp Pulse Resp BP Pulse Ox 09/21/20 17:06 36.2 C 119 H 20 115/96 H 95 - My Orders Last 24 Hours: My Active Orders 09/21/20 17:20 RT Aerosol Therapy [RC] ASDIRECTED - Assessment/Plan Last 24 Hours: My Active Orders 09/21/20 17:20 RT Aerosol Therapy [RC] ASDIRECTED
[2020-09-21 17:53] VITALS: PULSE 118
== END 2020-09-21 18:03 | disposition home or self-care (01) ==
LOC: DL.ED 16:57
DX: J45.41 Moderate persistent asthma with (acute) exacerbation (principal); Z72.0 Tobacco use
CPT/HCPCS: 94640; 96372; 99285; J0696; J2930; 99283; J7620-GY

== ENCOUNTER 2020-11-02 08:08 | Emergency (ER) | payer MEDICAID, OTHER ==
[2020-11-02 08:25] VITALS: BP 108/78; PULSE 95
--- NOTE | 2020-11-02 08:47 | EDM.PDOC ---
<Jerry Avendaño - Last Filed: 11/02/20 10:54> ED HPI GENERAL MEDICAL PROBLEM - General Chief Complaint: Abdominal Pain Stated Complaint: BAD STOMACHE PAIN Time Seen by Provider: 11/02/20 08:41 Source of Information: Reports: Patient History Limitations: Reports: No Limitations - History of Present Illness INITIAL COMMENTS - FREE TEXT/NARRATIVE: 20 y/o F c/o upper abd pn x 2 hours since she woke up this morning. Pt has had this pain on and off for three months and surmises she has had about 12 episodes in the last three months where she develops abd pn which is then relieved by vomiting. Denies med hx, surgical hx, , cp, db, shoulder pn, pelvic pn, extremity pn, fever, cough, chills. Admits to a few beers last night. Onset: Today Duration: Hour(s): Location: Reports: Abdomen - Related Data Allergies Allergy/AdvReac Type Severity Reaction Status Date / Time No Known Allergies Allergy Verified 11/02/20 08:19 Home Meds: Home Meds . 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 (See Below) Other PRINCIPAL PLANNER History: STD Musculoskeletal History: Reports: None Neurological History: Reports: None Psychiatric History: Reports: Depression, Suicide Attempt Endocrine/Metabolic History: Reports: None Hematologic History: Reports: None Immunologic History: Reports: None Oncologic (Cancer) History: Reports: None Dermatologic History: Reports: None - Infectious Disease History Infectious Disease History: Reports: None - Past Surgical History Head Surgeries/Procedures: Reports: None Social & Family History - Family History Family Medical History: No Pertinent Family History - Tobacco Use Tobacco Use Status *Q: Never Tobacco User Second Hand Smoke Exposure: No - Caffeine Use Caffeine Use: Reports: None - Alcohol Use Date of Last Drink: 11/01/20 - Living Situation & Occupation Living situation: Reports: with Family ED ROS GENERAL - Review of Systems Review Of Systems: Comprehensive ROS is negative, except as noted in HPI. ED EXAM, GI/ABD - Physical Exam Exam: See Below Exam Limited By: No Limitations General Appearance: Alert, WD/WN, No Apparent Distress Throat/Mouth: Normal Inspection, Normal Lips, Normal Teeth, Normal Gums, Normal Oropharynx, Normal Voice, No Airway Compromise Head: Atraumatic, Normocephalic Neck: Normal Inspection, Supple, Non-Tender, Full Range of Motion Respiratory/Chest: No Respiratory Distress, Lungs Clear, Normal Breath Sounds, No Accessory Muscle Use, Chest Non-Tender Cardiovascular: Normal Peripheral Pulses, Regular Rate, Rhythm, No Edema, No Gallop, No JVD, No Murmur, No Rub GI/Abdominal Exam: Soft, Non-Tender (Female) Exam: Deferred Rectal (Female) Exam: Deferred Back Exam: Normal Inspection, Full Range of Motion, NT Extremities: Normal Inspection, Normal Range of Motion, Non-Tender, Normal Capillary Refill, No Pedal Edema Neurological: Alert, Oriented, CN II-XII Intact, Normal Cognition, Normal Gait, Normal Reflexes, No Motor/Sensory Deficits Psychiatric: Normal Affect, Normal Mood Skin Exam: Warm, Dry, Intact, Normal Color, No Rash Course - Re-Assessments/Exams Free Text/Narrative Re-Assessment/Exam: 11/02/20 10:54 Discussed pts exam, labs and ultrasound report with pt. Advised pt she will need a surgical consult for further treatment. Pt understood and stated she will start the process with [facility] to have a surgical consult. Departure - Departure Time of Disposition: 10:55 Disposition: Home, Self-Care 01 Condition: Good Clinical Impression: Cholecystitis - Discharge Information *PRESCRIPTION DRUG MONITORING PROGRAM REVIEWED*: Not Applicable *COPY OF PRESCRIPTION DRUG MONITORING REPORT IN PATIENT SANJU: Not Applicable Instructions: Cholecystitis, [id number] Referrals: PCP,None [Primary Care Provider] - Forms: ED Department Discharge Additional Instructions: Avoid eating greasy foods. Follow up with a surgeon to further evaluate your ga llstones. Use tylenol or motrin when you have pain. If any new symptoms or concerns develop contact your primary care provider or return to the ER. Sepsis Event Note (ED) - Evaluation Sepsis Screening Result: No Definite Risk <Lynette Munguia - Last Filed: 11/02/20 12:56> Course - Vital Signs Last Recorded V/S: Last Vital Signs Temp 98.4 F 11/02/20 08:19 Pulse 95 11/02/20 08:19 Resp 20 04/15/21 08:19 BP 108/78 11/02/20 08:19 Pulse Ox 100 11/02/20 08:19 - Orders/Labs/Meds Labs: Laboratory Tests 11/02/20 11/02/20 11/02/20 Range/Units 08:25 08:25 08:25 WBC (5.0-10.0) 10^3/uL RBC (4.2-5.4) 10^6/uL Hgb (12.0-16.0) g/dL Hct (37.0-47.0) % MCV (80-100) fL MCH (27.0-34.0) pg MCHC (33.0-35.0) g/dL Plt Count (150-450) 10^3/uL Neut % (Auto) (42.2-75.2) % Lymph % (Auto) (20.5-50.1) % [place] % (Auto) (2-8) % Eos % (Auto) (1.0-3.0) % Baso % (Auto) (0.0-1.0) % Sodium (136-145) mmol/L Potassium (3.5-5.1) mmol/L Chloride (98-107) mmol/L Carbon Dioxide (21-32) mmol/L Anion Gap (7-13) mEq/L BUN (7-18) mg/dL Creatinine (0.55-1.02) mg/dL Est Cr Clr Drug Dosing mL/min Estimated GFR (MDRD) BUN/Creatinine Ratio (No establ ref range) Glucose (70-99) mg/dL Calcium (8.5-10.1) mg/dL Magnesium (1.8-2.4) mg/dL Total Bilirubin (0.2-1.0) mg/dL AST (15-37) U/L ALT (14-59) U/L Alkaline Phosphatase (46-116) U/L Total Protein (6.4-8.2) g/dL Albumin (3.4-5.0) g/dL Globulin Albumin/Globulin Ratio Lipase (73-393) U/L TSH, Ultra Sensitive (0.36-3.74) uIU/mL Urine Color Yellow (YELLOW) Urine Appearance Clear (CLEAR) Urine pH 6.0 (5.0-9.0) Ur Specific [place] 1.025 (1.005-1.030) Urine Protein Negative (NEGATIVE) Urine Glucose (UA) Negative (NEGATIVE) Urine Ketones Negative (NEGATIVE) Urine Occult Blood Negative (NEGATIVE) Urine Nitrite Negative (NEGATIVE) Urine Bilirubin Negative (NEGATIVE) Urine Urobilinogen 0.2 (0.2-1.0) mg/dL Ur Leukocyte Esterase Negative (NEGATIVE) Urine HCG, Qual Negative Urine Opiates Screen Negative (NEGATIVE) Ur Oxycodone Screen Negative (NEGATIVE) Urine Methadone Screen Negative (NEGATIVE) Ur Barbiturates Screen Negative (NEGATIVE) U Tricyclic Antidepress Negative (NEGATIVE) Ur Phencyclidine Scrn Negative (NEGATIVE) Ur Amphetamine Screen Negative (NEGATIVE) U Methamphetamines Scrn Negative (NEGATIVE) Urine MDMA Screen Negative (NEGATIVE) U Benzodiazepines Scrn Negative (NEGATIVE) Urine Cocaine Screen Negative (NEGATIVE) U Marijuana (THC) Screen Negative (NEGATIVE) Ethyl Alcohol (0) mg/dL 11/02/20 11/02/20 11/02/20 Range/Units 08:35 08:35 08:35 WBC 8.5 (5.0-10.0) 10^3/uL RBC 4.32 (4.2-5.4) 10^6/uL Hgb 12.4 D (12.0-16.0) g/dL Hct 38.7 (37.0-47.0) % MCV 89.6 D (80-100) fL MCH 28.7 (27.0-34.0) pg MCHC 32.0 L (33.0-35.0) g/dL Plt Count 304 (150-450) 10^3/uL Neut % (Auto) 59.7 (42.2-75.2) % Lymph % (Auto) 27.8 (20.5-50.1) % [place] % (Auto) 8.3 H (2-8) % Eos % (Auto) 4.0 H (1.0-3.0) % Baso % (Auto) 0.2 (0.0-1.0) % Sodium 146 H (136-145) mmol/L Potassium 4.0 (3.5-5.1) mmol/L Chloride 108 H (98-107) mmol/L Carbon Dioxide 27 (21-32) mmol/L Anion Gap 15.0 H (7-13) mEq/L BUN 8 (7-18) mg/dL Creatinine 0.64 (0.55-1.02) mg/dL Est Cr Clr Drug Dosing 114.06 mL/min Estimated GFR (MDRD) > 60 BUN/Creatinine Ratio 12.5 (No establ ref range) Glucose 91 (70-99) mg/dL Calcium 8.3 L (8.5-10.1) mg/dL Magnesium 2.2 (1.8-2.4) mg/dL Total Bilirubin 0.2 (0.2-1.0) mg/dL AST 24 (15-37) U/L ALT 32 (14-59) U/L Alkaline Phosphatase 108 (46-116) U/L Total Protein 7.2 (6.4-8.2) g/dL Albumin 3.4 (3.4-5.0) g/dL Globulin 3.8 Albumin/Globulin Ratio 0.9 Lipase 97 (73-393) U/L TSH, Ultra Sensitive 1.50 (0.36-3.74) uIU/mL Urine Color (YELLOW) Urine Appearance (CLEAR) Urine pH (5.0-9.0) Ur Specific [place] (1.005-1.030) Urine Protein (NEGATIVE) Urine Glucose (UA) (NEGATIVE) Urine Ketones (NEGATIVE) Urine Occult Blood (NEGATIVE) Urine Nitrite (NEGATIVE) Urine Bilirubin (NEGATIVE) Urine Urobilinogen (0.2-1.0) mg/dL Ur Leukocyte Esterase (NEGATIVE) Urine HCG, Qual Urine Opiates Screen (NEGATIVE) Ur Oxycodone Screen (NEGATIVE) Urine Methadone Screen (NEGATIVE) Ur Barbiturates Screen (NEGATIVE) U Tricyclic Antidepress (NEGATIVE) Ur Phencyclidine Scrn (NEGATIVE) Ur Amphetamine Screen (NEGATIVE) U Methamphetamines Scrn (NEGATIVE) Urine MDMA Screen (NEGATIVE) U Benzodiazepines Scrn (NEGATIVE) Urine Cocaine Screen (NEGATIVE) U Marijuana (THC) Screen (NEGATIVE) Ethyl Alcohol 63 (0) mg/dL Meds: Medications Discontinued Medications Generic Name Dose Route Start Last Admin Trade Name Freq PRN Reason Stop Dose Admin Fentanyl 50 mcg 11/02/20 08:49 11/02/20 08:56 Fentanyl 100 Mcg/2 Ml Sdv IVPUSH 11/02/20 08:50 50 mcg ONETIME ONE Administration Sodium Chloride 1,000 mls @ 999 mls/hr 11/02/20 08:50 11/02/20 08:56 Normal Saline IV 11/02/20 09:50 999 mls/hr .BOLUS ONE Administration Ondansetron HCl 4 mg 11/02/20 08:49 11/02/20 08:56 Ondansetron 4 Mg/2 Ml Sdv IVPUSH 11/02/20 08:50 4 mg ONETIME ONE Administration - Radiology Interpretation Free Text/Narrative:: Gallbladder US: PROCEDURE INFORMATION: Exam: US Abdomen, Limited; Right Upper Quadrant Exam date and time: 11/02/2020 9:52 AM Age: 20 years old Clinical indication: Abdominal pain; Acute TECHNIQUE: Imaging protocol: US abdomen. Real time ultrasound with image documentation. Limited exam focused on the right upper quadrant. COMPARISON: No relevant prior studies available. FINDINGS: Liver: Normal. No masses. Gallbladder: Few gallstones are present. The gallbladder wall is slightly prominent measuring 3.8 mm. No evidence of pericholecystic fluid. Common bile duct: The common bile duct measures 3-4 mm. Pancreas: Visualized pancreas is unremarkable. Right kidney: The right kidney measures 10 x 3.8 x 4.4 cm. No evidence of hydronephrosis or stones. Aorta: The aorta is normal in caliber. IMPRESSION: Few gallstones are present. The gallbladder wall is slightly prominent measuring 3.8 mm. No evidence of pericholecystic fluid. Clinical correlation is advised. Thank you for allowing us to participate in the care of your patient. Dictated and Authenticated by: Loly Vega MD 11/02/2020 10:47 AM Central Time ([place] & [place]) See rad report - Re-Assessments/Exams Free Text/Narrative Re-Assessment/Exam: 11/02/20 10:51 I personally performed or re-performed the physical examination and medical decision making. I have verified all student documentation or findings, including history, physical exam and/or medical decision making. Sepsis Event Note (ED) - Focused Exam Vital Signs: Vital Signs Temp Pulse Resp BP Pulse Ox 11/02/20 08:19 98.4 F 95 20 108/78 100
[2020-11-02] MEDS ORDERED: Ondansetron 4 MG/2 ML SDV IVPUSH ONE (08:49)
[2020-11-02] MEDS ORDERED: fentaNYL 100 MCG/2 ML SDV IVPUSH ONE (08:49)
[2020-11-02] MEDS ORDERED: Sodium Chloride 0.9% 1,000 ML IV ONE (08:50)
[2020-11-02 09:09] LABS: CHLORIDE,CL 108 mmol/L (98-107); SODIUM,NA 146 mmol/L (136-145)
--- NOTE | 2020-11-02 10:47 | US ---
PROCEDURE INFORMATION: Exam: US Abdomen, Limited; Right Upper Quadrant Exam date and time: 11/02/2020 9:52 AM Age: 20 years old Clinical indication: Abdominal pain; Acute TECHNIQUE: Imaging protocol: US abdomen. Real time ultrasound with image documentation. Limited exam focused on the right upper quadrant. COMPARISON: No relevant prior studies available. FINDINGS: Liver: Normal. No masses. Gallbladder: Few gallstones are present. The gallbladder wall is slightly prominent measuring 3.8 mm. No evidence of pericholecystic fluid. Common bile duct: The common bile duct measures 3-4 mm. Pancreas: Visualized pancreas is unremarkable. Right kidney: The right kidney measures 10 x 3.8 x 4.4 cm. No evidence of hydronephrosis or stones. Aorta: The aorta is normal in caliber. IMPRESSION: Few gallstones are present. The gallbladder wall is slightly prominent measuring 3.8 mm. No evidence of pericholecystic fluid. Clinical correlation is advised.
== END 2020-11-02 11:12 | disposition home or self-care (01) ==
LOC: DL.ED 08:08
DX: K81.9 Cholecystitis, unspecified (principal); J45.909 Unspecified asthma, uncomplicated
CPT/HCPCS: 36415; 76705; 80053; 80305; 80307; 81003; 81025; 83690; 83735; 84443; 85025; 96374; 96375; 99284; J2405; J3010; J7030

== ENCOUNTER 2021-02-26 14:17 | Emergency (ER) | payer MEDICAID ==
[2021-02-26 15:26] VITALS: BP 115/77; PULSE 79
[2021-02-28 12:47] LABS: C.TRACHOMATIS BY TMA Positive (Negative); N.GONORRHOEAE BY TMA Positive (Negative)
== END 2021-02-26 16:43 | disposition left against medical advice (07) ==
LOC: DL.ED 14:17
DX: N30.90 Cystitis, unspecified without hematuria (principal); Z53.21 Procedure and treatment not carried out due to patient leaving prior to being seen by health care provider
CPT/HCPCS: 36415; 81001; 81025; 87086; 87088; 87186; 87491; 87563; 87591

== ENCOUNTER 2021-02-27 21:57 | Emergency (ER) | payer MEDICAID ==
[2021-02-27 22:05] VITALS: BP 116/70; PULSE 102
[2021-02-27 22:42] LABS: AMPHETAMINES,URINE NEGATIVE (NEGATIVE); BARBITURATES,URINE NEGATIVE (NEGATIVE); BENZODIAZEPINE,URINE NEGATIVE (NEGATIVE); MDMA (ECSTASY), URINE NEGATIVE (NEGATIVE); METHADONE,URINE NEGATIVE (NEGATIVE); METHAMPHETAMINES,URINE NEGATIVE (NEGATIVE); OPIATES,URINE NEGATIVE (NEGATIVE); OXYCODONE,URINE NEGATIVE (NEGATIVE); PHENCYCLIDINE,URINE NEGATIVE (NEGATIVE); TCA,URINE NEGATIVE (NEGATIVE)
[2021-02-27] MEDS ORDERED: Cephalexin 500 MG Cap PO ONE (23:07)
--- NOTE | 2021-02-27 23:13 | EDM.PDOC ---
ED HPI GENERAL MEDICAL PROBLEM - General Chief Complaint: Genitourinary Problem Stated Complaint: BLADDER INFECTION Time Seen by Provider: 02/27/21 23:00 Source of Information: Reports: Patient History Limitations: Reports: No Limitations - History of Present Illness INITIAL COMMENTS - FREE TEXT/NARRATIVE: This 20 yo female patient reports to the ED with a 2-3 day history of urinary frequency and bladder spasms. The patient reports she has not been seen by her primary care facility. The patient did come to the ED yesterday, but did not stay to see the provider. Duration: Day(s):, Constant, Getting Worse Location: Reports: Abdomen Quality: Reports: Other Severity: Moderate Improves with: Reports: None Worsens with: Reports: None Context: Reports: Other Associated Symptoms: Reports: No Other Symptoms Bladder Pain Score (Numeric/FACES): 5 - Related Data Allergies Allergy/AdvReac Type Severity Reaction Status Date / Time No Known Allergies Allergy Verified 02/27/21 22:05 Home Meds: Home Meds . 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 ASSISTANT PROJECT ENGINEER History: STD Musculoskeletal History: Reports: None Neurological History: Reports: None Psychiatric History: Reports: Depression, Suicide Attempt Endocrine/Metabolic History: Reports: None Hematologic History: Reports: None Immunologic History: Reports: None Oncologic (Cancer) History: Reports: None Dermatologic History: Reports: None - Infectious Disease History Infectious Disease History: Reports: None - Past Surgical History Head Surgeries/Procedures: Reports: None Social & Family History - Family History Family Medical History: No Pertinent Family History - Tobacco Use Tobacco Use Status *Q: Current Every Day Tobacco User Years of Tobacco use: 3 Packs/Tins Daily: 0.3 Second Hand Smoke Exposure: Yes - Caffeine Use Caffeine Use: Reports: None - Recreational Drug Use Recreational Drug Use: No - Living Situation & Occupation Living situation: Reports: with Family ED ROS GENERAL - Review of Systems Review Of Systems: Comprehensive ROS is negative, except as noted in HPI. ED EXAM, RENAL/ - Physical Exam Exam: See Below Exam Limited By: No Limitations General Appearance: Alert, WD/WN, Anxious Eye Exam: Bilateral Eye: EOMI, Normal Inspection, PERRL Ears: Normal External Exam, Normal Canal, Hearing Grossly Normal, Normal TMs Nose: Normal Inspection, Normal Mucosa, No Blood Throat/Mouth: Normal Inspection, Normal Lips, Normal Teeth, Normal Gums, Normal Oropharynx, Normal Voice, No Airway Compromise Head: Atraumatic, Normocephalic Neck: Normal Inspection, Supple, Non-Tender, Full Range of Motion Respiratory/Chest: No Respiratory Distress, Lungs Clear, Normal Breath Sounds, No Accessory Muscle Use, Chest Non-Tender Cardiovascular: Normal Peripheral Pulses, Regular Rate, Rhythm, No Edema, No Gallop, No JVD, No Murmur, No Rub GI/Abdominal: Normal Bowel Sounds, Soft, Non-Tender, No Organomegaly, No Distention, No Abnormal Bruit, No Mass (Female) Exam: Deferred Rectal (Female) Exam: Deferred Back Exam: Normal Inspection, Full Range of Motion, NT Extremities: Normal Inspection, Normal Range of Motion, Non-Tender, Normal Capillary Refill, No Pedal Edema Neurological: Alert, Oriented, CN II-XII Intact, Normal Cognition, Normal Gait, Normal Reflexes, No Motor/Sensory Deficits Psychiatric: Normal Affect, Normal Mood Skin Exam: Warm, Dry, Intact, Normal Color, No Rash Lymphatic: No Adenopathy Course - Vital Signs Last Recorded V/S: Last Vital Signs Temp 97.4 F 02/27/21 22:02 Pulse 102 H 02/27/21 22:02 Resp 18 02/27/21 22:02 BP 116/70 02/27/21 22:02 Pulse Ox 97 02/27/21 22:02 - Orders/Labs/Meds Orders: Active Orders 24 hr Category Date Time Status CULTURE URINE [RM] Stat Lab 02/27/21 22:11 Received Labs: Laboratory Tests 02/27/21 02/27/21 02/27/21 Range/Units 22:11 22:11 22:11 Urine Color [place] (YELLOW) Urine Appearance Slightly cloudy (CLEAR) Urine pH 5.0 (5.0-9.0) Ur Specific [place] 1.010 (1.005-1.030) Urine Protein >=300 H (NEGATIVE) Urine Glucose (UA) 250 H (NEGATIVE) Urine Ketones 15 H (NEGATIVE) Urine Occult Blood Trace-intact H (NEGATIVE) Urine Nitrite Positive H (NEGATIVE) Urine Bilirubin Moderate H (NEGATIVE) Urine Urobilinogen >=8.0 H (0.2-1.0) mg/dL Ur Leukocyte Esterase Large H (NEGATIVE) Urine RBC 10-20 H (0-5) /HPF Urine WBC >100 H (0-5/HPF) /HPF Ur Epithelial Cells Few (NOT SEEN) /HPF Amorphous Sediment Few (NOT SEEN) /HPF Urine Bacteria Few (0-FEW/HPF) /HPF Urine Mucus Rare (NOT SEEN) /LPF Urine HCG, Qual Positive Urine Opiates Screen Negative (NEGATIVE) Ur Oxycodone Screen Negative (NEGATIVE) Urine Methadone Screen Negative (NEGATIVE) Ur Barbiturates Screen Negative (NEGATIVE) U Tricyclic Antidepress Negative (NEGATIVE) Ur Phencyclidine Scrn Negative (NEGATIVE) Ur Amphetamine Screen Negative (NEGATIVE) U Methamphetamines Scrn Negative (NEGATIVE) Urine MDMA Screen Negative (NEGATIVE) U Benzodiazepines Scrn Negative (NEGATIVE) Urine Cocaine Screen Negative (NEGATIVE) U Marijuana (THC) Screen Negative (NEGATIVE) Meds: Medications Discontinued Medications Generic Name Dose Route Start Last Admin Trade Name Freq PRN Reason Stop Dose Admin Cephalexin 500 mg 02/27/21 23:07 02/27/21 23:14 Cephalexin 500 Mg Cap PO 02/27/21 23:08 500 mg ONETIME ONE Administration Departure - Departure Time of Disposition: 23:10 Disposition: Home, Self-Care 01 Condition: Fair Clinical Impression: UTI (urinary tract infection) Qualifiers: Urinary tract infection type: site unspecified Hematuria presence: with hem aturia Qualified Code(s): N39.0 - Urinary tract infection, site not specified Qualifiers: Weeks of gestation: unspecified Qualified Code(s): Z34.90 - Encounter for supervision of normal , unspecified, unspecified trimester - Discharge Information *PRESCRIPTION DRUG MONITORING PROGRAM REVIEWED*: Not Applicable Instructions: Urinary Tract Infection, Adult, [id number], and Urinary Tract Infection Forms: ED Department Discharge Care Plan Goals: The patient was advised of the examination and lab results during the visit. The patient was given an oral dose of Keflex while in the ED. The patient was discharged with a script for Keflex (500 mg) #10 to take 1 by mouth 2 times per day for 5 days. The patient was advised to follow-up with her primary care facility due to the positive test. The patient was encouraged to increase her oral fluid intake. If the patient has any additional symptoms or concerns, the patient should either return to the emergency department or visit her primary care facility. Sepsis Event Note (ED) - Focused Exam Vital Signs: Vital Signs Temp Pulse Resp BP Pulse Ox 02/27/21 22:02 97.4 F 102 H 18 116/70 97 - My Orders Last 24 Hours: My Active Orders 02/27/21 22:11 CULTURE URINE [RM] Stat - Assessment/Plan Last 24 Hours: My Active Orders 02/27/21 22:11 CULTURE URINE [RM] Stat
== END 2021-02-27 23:21 | disposition home or self-care (01) ==
LOC: DL.ED 21:57
DX: O23.40 Unspecified infection of urinary tract in pregnancy, unspecified trimester (principal); Z72.0 Tobacco use; Z3A.00 Weeks of gestation of pregnancy not specified
CPT/HCPCS: 80305; 81001; 81025; 87086; 99283; A9270

== ENCOUNTER 2021-04-15 02:45 | Inpatient (IN) | payer MEDICAID ==
[2021-04-15] MEDS ORDERED: Albuterol/Ipratropium 3.0-0.5 MG/3 ML Neb Soln NEB ONE (03:04)
--- NOTE | 2021-04-15 03:04 | EDM.PDOC ---
ED HPI GENERAL MEDICAL PROBLEM - General Stated Complaint: TROUBLE BREATHING Time Seen by Provider: 04/15/21 02:56 Source of Information: Reports: Patient, RN, RN Notes Reviewed History Limitations: Reports: No Limitations - History of Present Illness INITIAL COMMENTS - FREE TEXT/NARRATIVE: Ashley is a 21 y/o female with a history of asthma who presents to the ED via personal vehicle with complaints of shortness of breath. The patient reports she has had a dry cough and sinus congestion for the past 24 hours, but her shortness of breath started early last evening. She states her symptoms have progressively worsened to the point her albuterol inhaler is no longer providing her relief. She denies fever, shaking chills, chest pain, palpitations, nausea, vomiting, or abdominal pain. The patient attest to smoking 1/2 pack of cigarettes daily, she denies alcohol and recreational drugs. She states she is 12 weeks and has not yet had an OB appointment. Headache Pain Score (Numeric/FACES): 0 - Related Data Allergies Allergy/AdvReac Type Severity Reaction Status Date / Time No Known Allergies Allergy Verified 02/27/21 22:05 Home Meds: Home Meds Pnv No.95/Ferrous Fum/Folic AC [ Caplet] 1 cap PO DAILY 04/15/21 [History] Ondansetron [Ondansetron ODT] 4 mg PO Q4H PRN 04/16/21 [History] Albuterol Sulfate [Albuterol Sulfate HFA] 2 puff INH Q4H PRN #1 ea 04/18/21 [Rx] Albuterol [Proventil Neb Soln] 2.5 mg NEB QID PRN 999 Days #30 neb 04/18/21 [Rx] Albuterol/Ipratropium [DuoNeb 3.0-0.5 MG/3 ML] 3 ml NEB QID PRN #60 neb 04/18/21 [Rx] Nicotine [Habitrol] 7 mg TRDERM DAILY #3 patch 04/18/21 [Rx] predniSONE [Prednisone] 40 mg PO DAILY #10 tablet 04/18/21 [Rx] Past Medical History - Past Health History Medical/Surgical History: Denies Medical/Surgical History HEENT History: Reports: None Cardiovascular History: Reports: None Respiratory History: Reports: Asthma Gastrointestinal History: Reports: None Genitourinary History: Reports: STD, UTI, Recurrent RN ENDOSCOPY History: Reports: Other (See Below) Other RN ENDOSCOPY History: STD Musculoskeletal History: Reports: None Neurological History: Reports: None Psychiatric History: Reports: Depression, Suicide Attempt Endocrine/Metabolic History: Reports: None Hematologic History: Reports: None Immunologic History: Reports: None Oncologic (Cancer) History: Reports: None Dermatologic History: Reports: None - Infectious Disease History Infectious Disease History: Reports: None - Past Surgical History Head Surgeries/Procedures: Reports: None Social & Family History - Family History Family Medical History: No Pertinent Family History - Caffeine Use Caffeine Use: Reports: None - Living Situation & Occupation Living situation: Reports: with Family ED ROS GENERAL - Review of Systems Review Of Systems: Comprehensive ROS is negative, except as noted in HPI. ED EXAM, GENERAL - Physical Exam Exam: See Below Exam Limited By: Respiratory Distress General Appearance: Alert, Mild Distress (Difficulty breathing; Audible wheezing) Eye Exam: Bilateral Eye: EOMI, Normal Inspection, PERRL (3mm) Ears: Normal External Exam, Hearing Grossly Normal Nose: Normal Inspection, Normal Mucosa, No Blood Throat/Mouth: Normal Inspection, Normal Oropharynx, Normal Voice, No Airway Compromise Head: Atraumatic, Normocephalic Neck: Normal Inspection, Supple, Non-Tender, Full Range of Motion. No: Lymphadenopathy (L), Lymphadenopathy (R) Respiratory/Chest: Chest Non-Tender, Respiratory Distress, Wheezing (Inspiratory and expiratory, bilaterally), Accessory Muscle Use, Prolonged Expiration. No: Crackles, Rales, Rhonchi, Stridor, Retractions Cardiovascular: Normal Peripheral Pulses, Regular Rate, Rhythm, No Edema, No Gallop, No JVD, No Murmur, No Rub, Tachycardia Peripheral Pulses: 2+: Radial (L), Radial (R) GI/Abdominal: Normal Bowel Sounds, Soft, Non-Tender, No Distention, No Abnormal Bruit, No Mass, Pelvis Stable (Female) Exam: Deferred Rectal (Female) Exam: Deferred Back Exam: Normal Inspection, Full Range of Motion Extremities: Normal Inspection, Normal Range of Motion, Normal Capillary Refill Neurological: Alert, Oriented, CN II-XII Intact, Normal Cognition, Normal Gait, No Motor/Sensory Deficits Psychiatric: Normal Affect, Normal Mood Skin Exam: Warm, Dry, Intact, Normal Color, No Rash. No: Cyanosis, Jaundice, Mottled, Pallor Lymphatic: No Adenopathy Course - Vital Signs Last Recorded V/S: Last Vital Signs Temp 98.7 F 04/18/21 12:00 Pulse 96 04/18/21 12:00 Resp 16 04/18/21 12:00 BP 124/70 04/18/21 12:00 Pulse Ox 96 04/18/21 12:00 - Orders/Labs/Meds Labs: Laboratory Tests 04/15/21 04/15/21 04/15/21 Range/Units 02:56 03:54 03:54 WBC 13.0 H (5.0-10.0) 10^3/uL RBC 4.00 L (4.2-5.4) 10^6/uL Hgb 11.7 L (12.0-16.0) g/dL Hct 34.1 L (37.0-47.0) % MCV 85.3 D (80-100) fL MCH 29.3 (27.0-34.0) pg MCHC 34.3 (33.0-35.0) g/dL Plt Count 293 (150-450) 10^3/uL Neut % (Auto) 79.8 H (42.2-75.2) % Lymph % (Auto) 10.5 L (20.5-50.1) % Carlton % (Auto) 5.2 (2-8) % Eos % (Auto) 4.4 H (1.0-3.0) % Baso % (Auto) 0.1 (0.0-1.0) % Add Manual Diff Neutrophils % (Manual) (42-75) % Lymphocytes % (Manual) (20-50) % Monocytes % (Manual) (2-8) % Sodium 137 (136-145) mmol/L Potassium 3.5 (3.5-5.1) mmol/L Chloride 104 (98-107) mmol/L Carbon Dioxide 21 (21-32) mmol/L Anion Gap 15.5 H (7-13) mEq/L BUN 4 L (7-18) mg/dL Creatinine 0.54 L (0.55-1.02) mg/dL Est Cr Clr Drug Dosing 139.92 mL/min Estimated GFR (MDRD) > 60 BUN/Creatinine Ratio 7.4 (No establ ref range) Glucose 101 H (70-99) mg/dL Lactic Acid (0.4-2.0) mmol/L Calcium 8.6 (8.5-10.1) mg/dL Magnesium (1.8-2.4) mg/dL Total Bilirubin 0.3 (0.2-1.0) mg/dL AST 62 H (15-37) U/L ALT 133 H (14-59) U/L Alkaline Phosphatase 78 (46-116) U/L C-Reactive Protein 1.5 H (0.0-0.9) mg/dL Total Protein 7.3 (6.4-8.2) g/dL Albumin 3.6 (3.4-5.0) g/dL Globulin 3.7 Albumin/Globulin Ratio 1.0 SARS-CoV-2 RNA (MALENA) Negative (NEGATIVE) 04/15/21 04/16/21 04/16/21 Range/Units 03:54 06:09 06:09 WBC 26.8 H* (5.0-10.0) 10^3/uL RBC 3.71 L (4.2-5.4) 10^6/uL Hgb 10.7 L (12.0-16.0) g/dL Hct 32.0 L (37.0-47.0) % MCV 86.3 (80-100) fL MCH 28.8 (27.0-34.0) pg MCHC 33.4 (33.0-35.0) g/dL Plt Count 291 (150-450) 10^3/uL Neut % (Auto) 96.0 H (42.2-75.2) % Lymph % (Auto) 2.4 L (20.5-50.1) % Carlton % (Auto) 1.6 L (2-8) % Eos % (Auto) 0.0 L (1.0-3.0) % Baso % (Auto) 0.0 (0.0-1.0) % Add Manual Diff Neutrophils % (Manual) (42-75) % Lymphocytes % (Manual) (20-50) % Monocytes % (Manual) (2-8) % Sodium 138 (136-145) mmol/L Potassium 3.9 (3.5-5.1) mmol/L Chloride 105 (98-107) mmol/L Carbon Dioxide 19 L (21-32) mmol/L Anion Gap 17.9 H (7-13) mEq/L BUN 6 L (7-18) mg/dL Creatinine 0.51 L (0.55-1.02) mg/dL Est Cr Clr Drug Dosing 148.15 mL/min Estimated GFR (MDRD) > 60 BUN/Creatinine Ratio (No establ ref range) Glucose 144 H (70-99) mg/dL Lactic Acid 0.7 (0.4-2.0) mmol/L Calcium 8.4 L (8.5-10.1) mg/dL Magnesium 2.0 (1.8-2.4) mg/dL Total Bilirubin (0.2-1.0) mg/dL AST (15-37) U/L ALT (14-59) U/L Alkaline Phosphatase (46-116) U/L C-Reactive Protein 2.8 H (0.0-0.9) mg/dL Total Protein (6.4-8.2) g/dL Albumin (3.4-5.0) g/dL Globulin Albumin/Globulin Ratio SARS-CoV-2 RNA (MALENA) (NEGATIVE) 04/17/21 04/17/21 Range/Units 06:17 06:17 WBC 22.0 H (5.0-10.0) 10^3/uL RBC 3.62 L (4.2-5.4) 10^6/uL Hgb 10.6 L (12.0-16.0) g/dL Hct 31.8 L (37.0-47.0) % MCV 87.8 (80-100) fL MCH 29.3 (27.0-34.0) pg MCHC 33.3 (33.0-35.0) g/dL Plt Count 295 (150-450) 10^3/uL Neut % (Auto) 90.7 H (42.2-75.2) % Lymph % (Auto) 5.9 L (20.5-50.1) % Carlton % (Auto) 3.4 (2-8) % Eos % (Auto) 0.0 L (1.0-3.0) % Baso % (Auto) 0.0 (0.0-1.0) % Add Manual Diff Yes Neutrophils % (Manual) 91 H (42-75) % Lymphocytes % (Manual) 6 L (20-50) % Monocytes % (Manual) 3 (2-8) % Sodium 137 (136-145) mmol/L Potassium 4.2 (3.5-5.1) mmol/L Chloride 105 (98-107) mmol/L Carbon Dioxide 21 (21-32) mmol/L Anion Gap 15.2 H (7-13) mEq/L BUN 7 (7-18) mg/dL Creatinine 0.51 L (0.55-1.02) mg/dL Est Cr Clr Drug Dosing 148.15 mL/min Estimated GFR (MDRD) > 60 BUN/Creatinine Ratio (No establ ref range) Glucose 122 H (70-99) mg/dL Lactic Acid (0.4-2.0) mmol/L Calcium 8.5 (8.5-10.1) mg/dL Magnesium 1.9 (1.8-2.4) mg/dL Total Bilirubin (0.2-1.0) mg/dL AST (15-37) U/L ALT (14-59) U/L Alkaline Phosphatase (46-116) U/L C-Reactive Protein 0.4 (0.0-0.9) mg/dL Total Protein (6.4-8.2) g/dL Albumin (3.4-5.0) g/dL Globulin Albumin/Globulin Ratio SARS-CoV-2 RNA (MALENA) (NEGATIVE) Meds: Medications Discontinued Medications Generic Name Dose Route Start Last Admin Trade Name Freq PRN Reason Stop Dose Admin Acetaminophen 650 mg 04/15/21 06:34 04/17/21 20:14 Acetaminophen 325 Mg Tab PO 650 mg Q4H PRN Administration Pain (Mild 1-3)/fever Albuterol 2.5 mg 04/15/21 04:42 04/15/21 04:45 Albuterol 0.083% 2.5 Mg/3 Ml Neb Soln NEB 04/15/21 04:43 2.5 mg ONETIME ONE Administration Albuterol 2.5 mg 04/15/21 06:34 04/17/21 09:30 Albuterol 0.083% 2.5 Mg/3 Ml Neb Soln NEB 2.5 mg Q2H PRN Administration shortness of breath/wheezing Albuterol 2.5 mg 04/17/21 17:00 Albuterol 0.083% 2.5 Mg/3 Ml Neb Soln NEB QIDRT PRN Wheezing/SOB Albuterol/Ipratropium 3 ml 04/15/21 03:04 04/15/21 03:13 Albuterol/Ipratropium 3.0-0.5 Mg/3 Ml Neb Soln NEB 04/15/21 03:05 3 ml ONETIME ONE Administration Albuterol/Ipratropium 3 ml 04/15/21 14:00 04/17/21 18:03 Albuterol/Ipratropium 3.0-0.5 Mg/3 Ml Neb Soln NEB Not Given Q4HRRT KEIRA Albuterol/Ipratropium 3 ml 04/17/21 17:00 04/18/21 06:14 Albuterol/Ipratropium 3.0-0.5 Mg/3 Ml Neb Soln NEB Not Given QIDRT KEIRA Bisacodyl 5 mg 04/15/21 06:34 04/17/21 08:45 Bisacodyl 5 Mg Tab PO 5 mg DAILY PRN Administration Constipation Magnesium Sulfate 2 gm/ Premix 50 mls @ 250 mls/hr 04/15/21 04:18 04/15/21 04:35 IV 04/15/21 04:29 250 mls/hr ONETIME ONE Administration Magnesium Sulfate 2 gm/ Premix 50 mls @ 250 mls/hr 04/15/21 04:29 04/15/21 04:35 IV 04/15/21 04:40 250 mls/hr ONETIME ONE Administration Methylprednisolone Sodium Succinate 80 mg 04/15/21 03:42 04/15/21 03:54 Methylprednisolone Sodium Succinate 125 Mg/2 Ml Sdv IVPUSH 04/15/21 03:43 80 mg ONETIME ONE Administration Methylprednisolone Sodium Succinate 40 mg 04/15/21 12:00 Methylprednisolone Sodium Succinate 40 Mg/1 Ml Sdv IVPUSH 04/18/21 12:01 Q8H KEIRA Methylprednisolone Sodium Succinate 100 mg 04/15/21 12:00 04/16/21 03:27 Methylprednisolone Sodium Succinate 125 Mg/2 Ml Sdv IVPUSH 04/18/21 12:01 100 mg Q8H KEIRA Administration Methylprednisolone Sodium Succinate 80 mg 04/16/21 14:00 04/18/21 05:20 Methylprednisolone Sodium Succinate 40 Mg/1 Ml Sdv IVPUSH 80 mg Q8HR KEIRA Administration Metronidazole 500 mg 04/16/21 18:00 04/16/21 18:02 Metronidazole 250 Mg Tab PO 04/16/21 18:01 500 mg BIDMEALS KEIRA Administration Metronidazole 500 mg 04/16/21 11:00 04/16/21 11:45 Metronidazole 250 Mg Tab PO 04/16/21 11:01 500 mg ONETIME ONE Administration Nicotine 7 mg 04/15/21 17:30 04/18/21 09:38 Nicotine 7 Mg/24 Hr Patch TRDERM 7 mg DAILY KEIRA Administration Nitrofurantoin Macrocrystals 100 mg 04/16/21 21:00 Nitrofurantoin Monohydrate/Macrocrystalline 100 Mg Cap PO 04/16/21 22:00 BID KEIRA Ondansetron HCl 4 mg 04/15/21 04:54 04/15/21 04:58 Ondansetron 4 Mg/2 Ml Sdv IVPUSH 04/15/21 04:55 4 mg ONETIME ONE Administration Ondansetron HCl 4 mg 04/15/21 06:34 Ondansetron 4 Mg/2 Ml Sdv IVPUSH Q6H PRN Nausea/Vomiting Ondansetron HCl 4 mg 04/16/21 10:50 Ondansetron 4 Mg Tab.Dis PO Q4HR PRN Nausea/Vomiting Prenat Multivit/[place]/Iron/Folic Ac 1 each 04/15/21 09:00 04/18/21 09:39 Multivitamin With Calcium/Folic Acid/Iron Tab PO 1 each DAILY KEIRA Administration Senna/Docusate Sodium 1 tab 04/15/21 06:34 Docusate Sodium/Sennosides 50-8.6 Mg Tab PO BEDTIME PRN Constipation - Radiology Interpretation Free Text/Narrative:: [facility] [place] [facility] Final Radiology Report Call: [phone] assistance Online chat: [email or web address] Name: ASHLEY MORGAN Age: 21Years F Date: 04/15/2021 SSN: -- : 2000 Study: CR CHEST 1V FRONTAL Requesting Physician: Marcela Mccoy Images: 1 Addl Studies: Provided Clinical History: Inspiratory/Expiratory wheezes; SOB Contrast: Contrast Medium: Contrast Amount: Contrast Method: CONFIDENTIALITY STATEMENT This report is intended only for use by the referring physician, and only in accordance with law. If you received this in error, call [phone]. Page 1 of 1 PROCEDURE INFORMATION: Exam: XR Chest Exam date and time: 04/15/2021 3:32 AM Age: 21 years old Clinical indication: Shortness of breath and wheezing; Additional info: Inspiratory/expiratory wheezes; SOB TECHNIQUE: Imaging protocol: XR of the chest. Views: 1 view. COMPARISON: CR Chest 2V 05/26/2020 8:50 PM FINDINGS: Lungs: Unremarkable. No consolidation. Pleural spaces: Unremarkable. No pleural effusion. No pneumothorax. Heart/Mediastinum: Unremarkable. No cardiomegaly. Bones/joints: Unremarkable. IMPRESSION: No acute findings. Thank you for allowing us to participate in the care of your patient. Dictated and Authenticated by: Moody Quinteros MD 04/15/2021 5:45 AM Central Time ([place] & [place]) - Re-Assessments/Exams Free Text/Narrative Re-Assessment/Exam: 04/15/21 DuoNeb administered. Patient verbalized little improvement in breathing. Solu-Medrol IVP administered. Blood work pending. Patient now requiring 2L O2 via NC to keep saturations >92%; no increased tachypnea noted. Expiratory and inspiratory wheezes remain diffuse to lungs. Albuterol nebulizer and Mag Sulfate 4mg IVPB administered. Wheezing slightly improved following medication administration, patient continues to require 2L O2 via NC. Case discussed with Dr. Maciel who requested case presentation to Dr. Kennedy as patient presentation is not OB related. Dr. Kennedy kindly accepted patient for admission. Departure - Departure Time of Disposition: 06:15 Disposition: Admitted As Inpatient 64 Condition: Poor Clinical Impression: Acute asthma exacerbation Qualifiers: Asthma severity: mild Asthma persistence: intermittent Qualified Code(s): J45.21 - Mild intermittent asthma with (acute) exacerbation - Discharge Information
[2021-04-15] MEDS ORDERED: methylPREDNISolone Sodium Succinate 125 MG/2 ML SDV IVPUSH ONE (03:42)
[2021-04-15] MEDS ORDERED: Magnesium Sulfate/Water 2 GM in Premix Bag 1 BAG IV ONE ×2 (04:18→04:29)
[2021-04-15 04:28] LABS: ANION GAP 15.5 mEq/L (7-13); CHLORIDE,CL 104 mmol/L (98-107); SODIUM,NA 137 mmol/L (136-145)
[2021-04-15] MEDS ORDERED: Albuterol 0.083% 2.5 MG/3 ML Neb Soln NEB ONE (04:42)
[2021-04-15] MEDS ORDERED: Ondansetron 4 MG/2 ML SDV IVPUSH ONE (04:54)
--- NOTE | 2021-04-15 05:45 | CR ---
PROCEDURE INFORMATION: Exam: XR Chest Exam date and time: 04/15/2021 3:32 AM Age: 21 years old Clinical indication: Shortness of breath and wheezing; Additional info: Inspiratory/expiratory wheezes; SOB TECHNIQUE: Imaging protocol: XR of the chest. Views: 1 view. COMPARISON: CR Chest 2V 05/26/2020 8:50 PM FINDINGS: Lungs: Unremarkable. No consolidation. Pleural spaces: Unremarkable. No pleural effusion. No pneumothorax. Heart/Mediastinum: Unremarkable. No cardiomegaly. Bones/joints: Unremarkable. IMPRESSION: No acute findings.
--- NOTE | 2021-04-15 06:31 | PCM.HP ---
H&P History of Present Illness - General Date of Service: 04/15/21 Admit Problem/Dx: Admission Diagnosis/Problem Admission Diagnosis/Problem Asthma with acute exacerbation Source of Information: Patient, Provider, RN Notes Reviewed History Limitations: Reports: No Limitations - History of Present Illness Initial Comments - Free Text/Narative: This is a 21-year-old female with past medical history of asthma, history of STD, recurrent UTI, depression with suicide attempt and nicotine dependence who presents to the emergency department with complaints of shortness of breath associated with wheezing. She denies having fever or chills. However she has been having dry cough and sinus congestion over the course of the past 24 hours. She states she did not get short of breath until early last night. She did try to use her inhaler but was not able to get much out of it. With worsening respiratory symptoms, she presented to emergency department buffer [place] hours for evaluation and management. Patient smokes 2 cigarettes every now and then. She denies marijuana use. She does not chew tobacco products or use electronic vaping. She denies illicit drug use. She further denies alcohol use. At the time of my examination of her on the floor, she denies having dizziness but some lightheadedness felt to be related to her . No chest pain but has some dyspnea. No GI or complaints. Upon presentation to the emergency department [place] hours, she was found tachypneic and tachycardic. So far she has received 2 nebs treatment along with magnesium supplement and IV steroids. Her initial work-up in the emergency department shows a CBC remarkable for WBC of 13, hemoglobin of 11.7 g, hematocrit of 34.1, and neutrophils count of 79.8. Her chemistry is notable for anion gap of 15.5, BUN of 4, creatinine of 0.54, glucose of 101, AST of 62, ALT of 133, CRP of 1.5. Her chest x-ray report was read as no acute findings. Rapid Covid test performed in ED prior to admission is negative. Patient is essentially coming in for further management of acute COPD exacerbation. 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: Other (See Below) Other OB/BYN History: STD Musculoskeletal History: Reports: None Neurological History: Reports: None Psychiatric History: Reports: Depression, Suicide Attempt Endocrine/Metabolic History: Reports: None Hematologic History: Reports: None Immunologic History: Reports: None Oncologic (Cancer) History: Reports: None Dermatologic History: Reports: None - Infectious Disease History Infectious Disease History: Reports: None - Past Surgical History Head Surgeries/Procedures: Reports: None Social & Family History - Family History Family Medical History: No Pertinent Family History - Tobacco Use Tobacco Use Status *Q: Current Every Day Tobacco User Years of Tobacco use: 5 Packs/Tins Daily: 0.5 - Caffeine Use Caffeine Use: Reports: None - Recreational Drug Use Recreational Drug Use: No - Living Situation & Occupation Living situation: Reports: with Family H&P Review of Systems - Review of Systems: Review Of Systems: See Below General: Denies: Fever, Chills, Weakness, Fatigue HEENT: Denies: Contact Lenses Pulmonary: Reports: Shortness of Breath, Wheezing, Cough, Other (dyspnea). Denies: Sputum Cardiovascular: Reports: Lightheadedness (related to ). Denies: Chest Pain, Orthopnea, Syncope, Claudication, Blood Pressure Problem Gastrointestinal: Denies: Abdominal Pain, Constipation, Decreased Appetite, Nausea, Stool Incontinence, Vomiting Genitourinary: Denies: Frequency, Burning, Pain, Urgency Musculoskeletal: Reports: No Symptoms Skin: Denies: Bruising, Pruritis, Rash Psychiatric: Denies: Depression, Anxiety, Hallucinations, Suicidal Ideation Neurological: Denies: Dizziness, Syncope, Weakness Hematologic/Lymphatic: Reports: No Symptoms Immunologic: Reports: No Symptoms Exam - Exam Exam: See Below - Vital Signs Vital Signs: Last Vital Signs Temp 36.4 C 04/15/21 02:56 Pulse 114 H 04/15/21 02:56 Resp 20 04/15/21 02:56 BP 112/72 04/15/21 02:56 Pulse Ox 95 04/15/21 02:56 Weight: 71.668 kg - Exam Quality Assessment: Supplemental Oxygen General: Alert, Oriented, Cooperative HEENT: Conjunctiva Clear, EACs Clear, EOMI, Hearing Intact, Nares Patent, Normal Nasal Septum, Posterior Pharynx Clear, Pupils Equal, TMs Clear Neck: Supple, Trachea Midline Lungs: Normal Respiratory Effort, Wheezing (expiratory wheezing), Other (tachypnea) Cardiovascular: Tachycardia GI/Abdominal Exam: Normal Bowel Sounds, Soft, Non-Tender, No Organomegaly, No Distention, No Abnormal Bruit (Female) Exam: Deferred Rectal (Female) Exam: Deferred Back Exam: Normal Inspection, Full Range of Motion Extremities: Normal Inspection, Normal Range of Motion, Non-Tender, No Pedal Edema, Normal Capillary Refill Peripheral Pulses: 2+: Dorsalis Pedis (L), Dorsalis Pedis (R) Skin: Warm, Dry, Intact Neuro Extensive - Mental Status: Alert, Oriented x3, Normal Mood/Affect Neuro Extensive - Motor, Sensory, Reflexes: CN II-XII Intact, Normal Gait Psychiatric: Alert, Normal Affect, Normal Mood - Patient Data Lab Results Last 24 hrs: Laboratory Results - last 24 hr 04/15/21 04/15/21 04/15/21 Range/Units 02:56 03:54 03:54 WBC 13.0 H (5.0-10.0) 10^3/uL RBC 4.00 L (4.2-5.4) 10^6/uL Hgb 11.7 L (12.0-16.0) g/dL Hct 34.1 L (37.0-47.0) % MCV 85.3 D (80-100) fL MCH 29.3 (27.0-34.0) pg MCHC 34.3 (33.0-35.0) g/dL Plt Count 293 (150-450) 10^3/uL Neut % (Auto) 79.8 H (42.2-75.2) % Lymph % (Auto) 10.5 L (20.5-50.1) % [place] % (Auto) 5.2 (2-8) % Eos % (Auto) 4.4 H (1.0-3.0) % Baso % (Auto) 0.1 (0.0-1.0) % Sodium 137 (136-145) mmol/L Potassium 3.5 (3.5-5.1) mmol/L Chloride 104 (98-107) mmol/L Carbon Dioxide 21 (21-32) mmol/L Anion Gap 15.5 H (7-13) mEq/L BUN 4 L (7-18) mg/dL Creatinine 0.54 L (0.55-1.02) mg/dL Est Cr Clr Drug Dosing 139.92 mL/min Estimated GFR (MDRD) > 60 BUN/Creatinine Ratio 7.4 (No establ ref range) Glucose 101 H (70-99) mg/dL Lactic Acid (0.4-2.0) mmol/L Calcium 8.6 (8.5-10.1) mg/dL Total Bilirubin 0.3 (0.2-1.0) mg/dL AST 62 H (15-37) U/L ALT 133 H (14-59) U/L Alkaline Phosphatase 78 (46-116) U/L C-Reactive Protein 1.5 H (0.0-0.9) mg/dL Total Protein 7.3 (6.4-8.2) g/dL Albumin 3.6 (3.4-5.0) g/dL Globulin 3.7 Albumin/Globulin Ratio 1.0 SARS-CoV-2 RNA ([facility]) Negative (NEGATIVE) 04/15/21 Range/Units 03:54 WBC (5.0-10.0) 10^3/uL RBC (4.2-5.4) 10^6/uL Hgb (12.0-16.0) g/dL Hct (37.0-47.0) % MCV (80-100) fL MCH (27.0-34.0) pg MCHC (33.0-35.0) g/dL Plt Count (150-450) 10^3/uL Neut % (Auto) (42.2-75.2) % Lymph % (Auto) (20.5-50.1) % [place] % (Auto) (2-8) % Eos % (Auto) (1.0-3.0) % Baso % (Auto) (0.0-1.0) % Sodium (136-145) mmol/L Potassium (3.5-5.1) mmol/L Chloride (98-107) mmol/L Carbon Dioxide (21-32) mmol/L Anion Gap (7-13) mEq/L BUN (7-18) mg/dL Creatinine (0.55-1.02) mg/dL Est Cr Clr Drug Dosing mL/min Estimated GFR (MDRD) BUN/Creatinine Ratio (No establ ref range) Glucose (70-99) mg/dL Lactic Acid 0.7 (0.4-2.0) mmol/L Calcium (8.5-10.1) mg/dL Total Bilirubin (0.2-1.0) mg/dL AST (15-37) U/L ALT (14-59) U/L Alkaline Phosphatase (46-116) U/L C-Reactive Protein (0.0-0.9) mg/dL Total Protein (6.4-8.2) g/dL Albumin (3.4-5.0) g/dL Globulin Albumin/Globulin Ratio SARS-CoV-2 RNA ([facility]AL[facility]) (NEGATIVE) Result Diagrams: 04/15/21 03:54 04/15/21 03:54 Problem List Initiated/Reviewed/Updated: Yes Orders Last 24hrs: Active Orders 24 hr Category Date Time Status Admission Diagnosis [ADT] Stat ADT 04/15/21 05:59 Ordered Admission Status [Patient Status] [ADT] Routine ADT 04/15/21 05:59 Active Cardiac Monitoring [RC] . DIRECTED Care 04/15/21 05:59 Active RT Aerosol Therapy [RC] ASDIRECTED Care 04/15/21 03:04 Active RT Aerosol Therapy [RC] ASDIRECTED Care 04/15/21 04:42 Active CULTURE BLOOD [BC] Stat Lab 04/15/21 03:54 Received Assessment/Plan Comment:: This is a 21-year-old female with past medical history of asthma, history of STD, recurrent UTI, depression with suicide attempt and nicotine dependence who presents to the emergency department with complaints of shortness of breath associated with wheezing and was admitted for acute asthma attack. Assessment: Acute: Asthma exacerbation with negative COVID-19 rapid test in ED Leukocytosis with WBC of 13 and neutrophils count of 79.8 Mild hyperglycemia with glucose of 101; expect to get worse with steroid use Elevated liver enzymes with AST of 62 and ALT of 133 Mildly elevated CRP of 1.5 12 weeks Chronic: History of asthma Mild smoking history per patient; smokes about 1 to 2 cigarettes every now and then History of STD and recurrent UTI Depression with suicide attempt Plan: Admit to medical floor Routine a.m. labs Regular diet Continue supplemental O2; titrate, IV Solu-Medrol and scheduled albuterol As needed albuterol every 4 for wheezing and shortness of breath Monitor for electrolytes abnormality Electrolytes replacement protocol Continue home dose multivitamins supplement daily [place] consult with Dr. Maciel, family practice with OB regarding patient's early status Counseled to quit smoking Offered nicotine patch but not interested at this time DVT prophylaxis: SCDs Length of stay: Expect less than 3 days Discharge plan: Treat until she is back to room air
[2021-04-15] MEDS ORDERED: Ondansetron 4 MG/2 ML SDV IVPUSH PRN (06:34)
[2021-04-15] MEDS ORDERED: Bisacodyl 5 MG Tab PO PRN (06:34)
[2021-04-15] MEDS: Albuterol 0.083% 2.5 MG/3 ML Neb Soln NEB PRN ×3 (07:05→09:43)
[2021-04-15] MEDS ORDERED: methylPREDNISolone Sodium Succinate 40 MG/1 ML SDV IVPUSH SCH (12:00)
[2021-04-15] MEDS: methylPREDNISolone Sodium Succinate 125 MG/2 ML SDV IVPUSH SCH ×2 (12:13→20:25)
[2021-04-15] MEDS: Prenatal Multivitamin with Calcium/Folic Acid/Iron Tab PO SCH (12:18)
[2021-04-15] MEDS: Albuterol/Ipratropium 3.0-0.5 MG/3 ML Neb Soln NEB SCH ×4 (14:07→23:05)
[2021-04-15] MEDS: Nicotine 7 MG/24 Hr Patch TRDERM SCH (17:39)
[2021-04-16] MEDS: methylPREDNISolone Sodium Succinate 125 MG/2 ML SDV IVPUSH SCH (03:27)
[2021-04-16] MEDS: Albuterol/Ipratropium 3.0-0.5 MG/3 ML Neb Soln NEB SCH ×6 (03:27→22:01)
--- NOTE | 2021-04-16 06:28 | PCM.PN ---
- General Info Date of Service: 04/16/21 Admission Dx/Problem (Free Text): Admission Diagnosis/Problem Admission Diagnosis/Problem Asthma with acute exacerbation Subjective Update: No significant overnight or acute issues. However she feels sort of tired. Her breathing is much better. No report of wheezing this morning. Her CBC this morning reveals a WBC of 26.8, hemoglobin of 10.7, and neutrophils count of 96%. Her chemistry is significant for CO2 of 19, anion gap of 17.9, BUN of 6, creatinine of 0.51, glucose of 144, and non-corrected calcium of 8.4. Her CRP this morning is slightly elevated 2.8. She is on 2 L nasal cannula satting adequately anywhere between 92 to 95%. She has no new complaints this morning. Functional Status: Reports: Pain Controlled, Tolerating Diet, Ambulating, Urinating, Incentive Spirometry. Denies: New Symptoms - Review of Systems General: Denies: Fever, Weakness, Fatigue, Malaise HEENT: Denies: Contact Lenses Pulmonary: Reports: Cough. Denies: Shortness of Breath, Pleuritic Chest Pain, Sputum, Wheezing Cardiovascular: Denies: Chest Pain, Edema, Lightheadedness, Other Gastrointestinal: Denies: Abdominal Pain, Nausea, Vomiting Genitourinary: Denies: Dysuria, Frequency, Burning Musculoskeletal: Denies: Back Pain, Joint Pain Skin: Denies: Cyanosis, Bruising, Pruritis, Rash Neurological: Denies: Dizziness, Syncope, Difficulty Walking, Weakness, Gait D isturbance Psychiatric: Reports: No Symptoms - Patient Data Vitals - Most Recent: Last Vital Signs Temp 37.0 C 04/16/21 03:51 Pulse 116 H 04/16/21 03:51 Resp 20 04/16/21 03:51 BP 100/60 04/16/21 03:51 Pulse Ox 94 L 04/16/21 06:25 Weight - Most Recent: 71.668 kg I&O - Last 24 Hours: Intake & Output 04/15/21 04/15/21 04/16/21 14:59 22:59 06:59 Intake Total 310 2120 250 Balance 310 2120 250 Osmar Results Last 24 Hours: Microbiology 04/15/21 03:54 Aerobic Blood Culture - Preliminary Blood - Venous - Iv Start NO GROWTH AFTER 1 DAY Anaerobic Blood Culture - Preliminary NO GROWTH AFTER 1 DAY Med Orders - Current: Current Medications Acetaminophen (Acetaminophen 325 Mg Tab) 650 mg PO Q4H PRN PRN Reason: Pain (Mild 1-3)/fever Albuterol (Albuterol 0.083% 2.5 Mg/3 Ml Neb Soln) 2.5 mg NEB Q2H PRN PRN Reason: shortness of breath/wheezing Last Admin: 04/15/21 09:43 Dose: 2.5 mg Documented by: Albuterol/Ipratropium (Albuterol/Ipratropium 3.0-0.5 Mg/3 Ml Neb Soln) 3 ml NEB Q4HRRT [facility] Last Admin: 04/16/21 03:27 Dose: 3 ml Documented by: Bisacodyl (Bisacodyl 5 Mg Tab) 5 mg PO DAILY PRN PRN Reason: Constipation Methylprednisolone Sodium Succinate (Methylprednisolone Sodium Succinate 125 Mg/2 Ml Sdv) 100 mg IVPUSH Q8H [facility] Stop: 04/18/21 12:01 Last Admin: 04/16/21 03:27 Dose: 100 mg Documented by: Nicotine (Nicotine 7 Mg/24 Hr Patch) 7 mg TRDERM DAILY [facility] Last Admin: 04/15/21 17:39 Dose: 7 mg Documented by: Ondansetron HCl (Ondansetron 4 Mg/2 Ml Sdv) 4 mg IVPUSH Q6H PRN PRN Reason: Nausea/Vomiting Prenat Multivit/Vonore/Iron/Folic Ac ( Multivitamin With Calcium/Folic Acid/Iron Tab) 1 each PO DAILY [facility] Last Admin: 04/15/21 12:18 Dose: 1 each Documented by: Senna/Docusate Sodium (Docusate Sodium/Sennosides 50-8.6 Mg Tab) 1 tab PO BEDTIME PRN PRN Reason: Constipation Discontinued Medications Albuterol (Albuterol 0.083% 2.5 Mg/3 Ml Neb Soln) 2.5 mg NEB ONETIME ONE Stop: 04/15/21 04:43 Last Admin: 04/15/21 04:45 Dose: 2.5 mg Documented by: Albuterol/Ipratropium (Albuterol/Ipratropium 3.0-0.5 Mg/3 Ml Neb Soln) 3 ml NEB ONETIME ONE Stop: 04/15/21 03:05 Last Admin: 04/15/21 03:13 Dose: 3 ml Documented by: Magnesium Sulfate 2 gm/ Premix 50 mls @ 250 mls/hr IV ONETIME ONE Stop: 04/15/21 04:29 Last Admin: 04/15/21 04:35 Dose: 250 mls/hr Documented by: Magnesium Sulfate 2 gm/ Premix 50 mls @ 250 mls/hr IV ONETIME ONE Stop: 04/15/21 04:40 Last Admin: 04/15/21 04:35 Dose: 250 mls/hr Documented by: Methylprednisolone Sodium Succinate (Methylprednisolone Sodium Succinate 125 Mg/2 Ml Sdv) 80 mg IVPUSH ONETIME ONE Stop: 04/15/21 03:43 Last Admin: 04/15/21 03:54 Dose: 80 mg Documented by: Methylprednisolone Sodium Succinate (Methylprednisolone Sodium Succinate 40 Mg/1 Ml Sdv) 40 mg IVPUSH Q8H [facility] Stop: 04/18/21 12:01 Ondansetron HCl (Ondansetron 4 Mg/2 Ml Sdv) 4 mg IVPUSH ONETIME ONE Stop: 04/15/21 04:55 Last Admin: 04/15/21 04:58 Dose: 4 mg Documented by: - Exam Quality Assessment: Supplemental Oxygen, DVT Prophylaxis. No: Urine Catheter General: Alert, Oriented, Cooperative, No Acute Distress, Other (She looks and sounds better this morning) HEENT: Pupils Equal, Pupils Reactive, EOMI, Mucous Membr. Moist/[place] Neck: Supple Lungs: Normal Respiratory Effort, Wheezing (Mild) Cardiovascular: Tachycardia GI/Abdominal Exam: Normal Bowel Sounds, Soft, Non-Tender, No Organomegaly, No Abnormal Bruit (Female) Exam: Deferred Back Exam: Normal Inspection, Decreased Range of Motion Extremities: Normal Inspection, Normal Range of Motion, Non-Tender, No Pedal Edema, Normal Capillary Refill Peripheral Pulses: 2+: Dorsalis Pedis (L), Dorsalis Pedis (R) Skin: Warm, Dry, Intact Neurological: No New Focal Deficit, Normal Gait Psy/Mental Status: Alert, Normal Affect, Normal Mood - Patient Data Result Diagrams: 04/16/21 06:09 04/16/21 06:09 Osmar Results Last 24 hrs: Microbiology 04/15/21 03:54 Aerobic Blood Culture - Preliminary Blood - Venous - Iv Start NO GROWTH AFTER 1 DAY Anaerobic Blood Culture - Preliminary NO GROWTH AFTER 1 DAY Sepsis Event Note - Evaluation Sepsis Screening Result: No Definite Risk - Focused Exam Vital Signs: Vital Signs Temp Pulse Resp BP Pulse Ox Pulse Ox 04/16/21 06:25 94 L 04/16/21 06:24 94 L 04/16/21 03:51 37.0 C 116 H 20 100/60 95 04/15/21 23:36 36.8 C 111 H 20 106/66 94 L 04/15/21 20:00 37.1 C 117 H 20 97/70 92 L - Problem List Review Problem List Initiated/Reviewed/Updated: Yes - My Orders Last 24 Hours: My Active Orders 04/15/21 06:34 Oxygen Therapy [RC] PRN Up ad Suzanna [RC] ASDIRECTED VTE/DVT Education [RC] PER UNIT ROUTINE Vital Signs [RC] 08,12,16,20,00,04 Consult to Case Management/Manager Internal [CONS] Routine Respiratory Care Assess and Treatment [CONS] Routine Acetaminophen [TylenoL] 650 mg PO Q4H PRN Albuterol [Proventil Neb Soln] 2.5 mg NEB Q2H PRN Docusate Sodium/Sennosides [Senna Plus] 1 tab PO BEDTIME PRN Ondansetron [Zofran] 4 mg IVPUSH Q6H PRN bisacodyL [Dulcolax] 5 mg PO DAILY PRN Resuscitation Status Routine 04/15/21 06:35 Cardiac Monitoring [RC] 08,20 Intake and Output [RC] 06,14,22 Pulse Oximetry [RC] CONTINUOUS Sequential Compression Device [OM.PC] Per Unit Routine 04/15/21 06:36 Antiembolic Devices [RC] 08,20 RT Aerosol Therapy [RC] ASDIRECTED 04/15/21 Breakfast Regular Diet [DIET] 04/15/21 08:41 Incentive Spirometry [RT Incentive Spirometry] [RC] Q2HWA 04/15/21 09:00 Vit with Ca/FA/Iron [ Plus Iron] 1 each PO DAILY 04/15/21 12:00 methylPREDNISolone Sod Succ [Solu-MEDROL] 100 mg IVPUSH Q8H 04/15/21 13:43 RT Aerosol Therapy [RC] ASDIRECTED 04/15/21 14:00 Albuterol/Ipratropium [DuoNeb 3.0-0.5 MG/3 ML] 3 ml NEB Q4HRRT 04/15/21 17:30 Nicotine [Habitrol] 7 mg TRDERM DAILY 04/16/21 06:09 BASIC METABOLIC PANEL,BMP [CHEM] AM C-REACTIVE PROTEIN [CHEM] Routine CBC WITH AUTO DIFF [HEME] AM MAGNESIUM [CHEM] AM 04/17/21 05:11 BASIC METABOLIC PANEL,BMP [CHEM] AM C-REACTIVE PROTEIN [REF] DAILY CBC WITH AUTO DIFF [HEME] AM MAGNESIUM [CHEM] AM 04/18/21 05:11 BASIC METABOLIC PANEL,BMP [CHEM] AM C-REACTIVE PROTEIN [REF] DAILY CBC WITH AUTO DIFF [HEME] AM MAGNESIUM [CHEM] AM - Assessment Assessment:: This is a 21-year-old female with past medical history of asthma, history of STD, recurrent UTI, depression with suicide attempt and nicotine dependence who presents to the emergency department with complaints of shortness of breath associated with wheezing and was admitted for acute asthma attack. Assessment: Acute: Asthma exacerbation with negative COVID-19 rapid test in ED; improved Leukocytosis with WBC of 13 and neutrophils count of 79.8; worse now at 26.8 thousand likely due to steroid use Mild hyperglycemia with glucose of 101; expect to get worse with steroid use; now in the 140s Elevated liver enzymes with AST of 62 and ALT of 133 Mildly elevated CRP of 1.5; now at 2.8 12 weeks Recent diagnosis of STI/UTI on treatment Chronic: History of asthma Mild smoking history per patient; smokes about 1 to 2 cigarettes every now and then History of STD and recurrent UTI Depression with suicide attempt - Plan Plan:: Continue current treatment Routine a.m. labs Regular diet Continue supplemental O2; titrate titrate to come off Cut down Solu-Medrol dose to 80 mg from 100 mg IV push every 8 hours Continue IV Solu-Medrol and scheduled albuterol As needed albuterol every 4 for wheezing and shortness of breath Monitor for electrolytes abnormality Electrolytes replacement protocol Continue home dose multivitamins supplement daily [place] consult with Dr. Maciel, family practice with OB regarding patient's early status Counseled to quit smoking Offered nicotine patch but not interested at this time DVT prophylaxis: SCDs Length of stay: Expect less than 3 days Discharge plan: Treat until she is back to room air 1113: Charge nurse informs me that patient is currently being treated for STI/UTI (bacterial vaginosis) with flagyl and macrobid. Her last day of treatment is today. Discussed abx use with Dr. Maciel and she okayed the flagyl but not macrobid. We will go ahead and discontinue marcobid and continue her flagyl 500 mg po BID, last dose tonight.
[2021-04-16 07:05] LABS: ANION GAP 17.9 mEq/L (7-13); CHLORIDE,CL 105 mmol/L (98-107); SODIUM,NA 138 mmol/L (136-145)
[2021-04-16] MEDS: Prenatal Multivitamin with Calcium/Folic Acid/Iron Tab PO SCH (08:50)
[2021-04-16] MEDS: Nicotine 7 MG/24 Hr Patch TRDERM SCH (08:51)
[2021-04-16] MEDS: Albuterol 0.083% 2.5 MG/3 ML Neb Soln NEB PRN (09:38)
[2021-04-16] MEDS ORDERED: Ondansetron 4 MG Tab.DIS PO PRN (10:50)
[2021-04-16] MEDS ORDERED: Nitrofurantoin Monohydrate/Macrocrystalline 100 MG Cap PO ONE (11:00)
[2021-04-16] MEDS ORDERED: metroNIDAZOLE 250 MG Tab PO ONE (11:00)
[2021-04-16] MEDS: Acetaminophen 325 MG Tab PO PRN (11:57)
[2021-04-16] MEDS: methylPREDNISolone Sodium Succinate 40 MG/1 ML SDV IVPUSH SCH ×2 (13:54→21:58)
[2021-04-16] MEDS ORDERED: metroNIDAZOLE 250 MG Tab PO SCH (18:00)
[2021-04-16] MEDS ORDERED: Nitrofurantoin Monohydrate/Macrocrystalline 100 MG Cap PO SCH (21:00)
[2021-04-17] MEDS: Albuterol/Ipratropium 3.0-0.5 MG/3 ML Neb Soln NEB SCH ×6 (03:12→21:56)
[2021-04-17] MEDS: methylPREDNISolone Sodium Succinate 40 MG/1 ML SDV IVPUSH SCH ×3 (05:44→21:57)
--- NOTE | 2021-04-17 06:40 | PCM.PN ---
- General Info Date of Service: 04/17/21 Admission Dx/Problem (Free Text): Admission Diagnosis/Problem Admission Diagnosis/Problem Asthma with acute exacerbation Subjective Update: Patient states that she feels her breathing is improved from the prior day. Patient is still describing significant wheezing and shortness of breath with any exertion. She states that she is "not close to my normal". She does describe cough that is nonproductive. Denies any fevers or chills. Patient denies any chest pains or pressures, palpitations, abdominal pain, nausea or vomiting. - Patient Data Vitals - Most Recent: Last Vital Signs Temp 97.8 F 04/17/21 03:16 Pulse 96 04/17/21 03:16 Resp 20 04/17/21 03:16 BP 115/64 04/17/21 03:16 Pulse Ox 94 L 04/17/21 06:00 Weight - Most Recent: 158 lb I&O - Last 24 Hours: Intake & Output 04/16/21 04/16/21 04/17/21 14:59 22:59 06:59 Intake Total 120 170 350 Balance 120 170 350 Lab Results Last 24 Hours: Laboratory Results - last 24 hr 04/16/21 Range/Units 06:09 Sodium 138 (136-145) mmol/L Potassium 3.9 (3.5-5.1) mmol/L Chloride 105 (98-107) mmol/L Carbon Dioxide 19 L (21-32) mmol/L Anion Gap 17.9 H (7-13) mEq/L BUN 6 L (7-18) mg/dL Creatinine 0.51 L (0.55-1.02) mg/dL Est Cr Clr Drug Dosing 148.15 mL/min Estimated GFR (MDRD) > 60 Glucose 144 H (70-99) mg/dL Calcium 8.4 L (8.5-10.1) mg/dL Magnesium 2.0 (1.8-2.4) mg/dL C-Reactive Protein 2.8 H (0.0-0.9) mg/dL Osmar Results Last 24 Hours: Microbiology 04/15/21 03:54 Aerobic Blood Culture - Preliminary Blood - Venous - Iv Start NO GROWTH AFTER 2 DAYS Anaerobic Blood Culture - Preliminary NO GROWTH AFTER 2 DAYS Med Orders - Current: Current Medications Acetaminophen (Acetaminophen 325 Mg Tab) 650 mg PO Q4H PRN PRN Reason: Pain (Mild 1-3)/fever Last Admin: 04/16/21 11:57 Dose: 650 mg Documented by: Albuterol (Albuterol 0.083% 2.5 Mg/3 Ml Neb Soln) 2.5 mg NEB Q2H PRN PRN Reason: shortness of breath/wheezing Last Admin: 04/16/21 09:38 Dose: 2.5 mg Documented by: Albuterol/Ipratropium (Albuterol/Ipratropium 3.0-0.5 Mg/3 Ml Neb Soln) 3 ml NEB Q4HRRT [facility] Last Admin: 04/17/21 03:12 Dose: 3 ml Documented by: Bisacodyl (Bisacodyl 5 Mg Tab) 5 mg PO DAILY PRN PRN Reason: Constipation Methylprednisolone Sodium Succinate (Methylprednisolone Sodium Succinate 40 Mg/1 Ml Sdv) 80 mg IVPUSH Q8HR [facility] Last Admin: 04/17/21 05:44 Dose: 80 mg Documented by: Nicotine (Nicotine 7 Mg/24 Hr Patch) 7 mg TRDERM DAILY [facility] Last Admin: 04/16/21 08:51 Dose: 7 mg Documented by: Ondansetron HCl (Ondansetron 4 Mg/2 Ml Sdv) 4 mg IVPUSH Q6H PRN PRN Reason: Nausea/Vomiting Ondansetron HCl (Ondansetron 4 Mg Tab.Dis) 4 mg PO Q4HR PRN PRN Reason: Nausea/Vomiting Prenat Multivit/[place]/Iron/Folic Ac ( Multivitamin With Calcium/Folic Acid/Iron Tab) 1 each PO DAILY [facility] Last Admin: 04/16/21 08:50 Dose: 1 each Documented by: Senna/Docusate Sodium (Docusate Sodium/Sennosides 50-8.6 Mg Tab) 1 tab PO BEDTIME PRN PRN Reason: Constipation Discontinued Medications Albuterol (Albuterol 0.083% 2.5 Mg/3 Ml Neb Soln) 2.5 mg NEB ONETIME ONE Stop: 04/15/21 04:43 Last Admin: 04/15/21 04:45 Dose: 2.5 mg Documented by: Albuterol/Ipratropium (Albuterol/Ipratropium 3.0-0.5 Mg/3 Ml Neb Soln) 3 ml NEB ONETIME ONE Stop: 04/15/21 03:05 Last Admin: 04/15/21 03:13 Dose: 3 ml Documented by: Magnesium Sulfate 2 gm/ Premix 50 mls @ 250 mls/hr IV ONETIME ONE Stop: 04/15/21 04:29 Last Admin: 04/15/21 04:35 Dose: 250 mls/hr Documented by: Magnesium Sulfate 2 gm/ Premix 50 mls @ 250 mls/hr IV ONETIME ONE Stop: 04/15/21 04:40 Last Admin: 04/15/21 04:35 Dose: 250 mls/hr Documented by: Methylprednisolone Sodium Succinate (Methylprednisolone Sodium Succinate 125 Mg/2 Ml Sdv) 80 mg IVPUSH ONETIME ONE Stop: 04/15/21 03:43 Last Admin: 04/15/21 03:54 Dose: 80 mg Documented by: Methylprednisolone Sodium Succinate (Methylprednisolone Sodium Succinate 40 Mg/1 Ml Sdv) 40 mg IVPUSH Q8H [facility] Stop: 04/18/21 12:01 Methylprednisolone Sodium Succinate (Methylprednisolone Sodium Succinate 125 Mg/2 Ml Sdv) 100 mg IVPUSH Q8H [facility] Stop: 04/18/21 12:01 Last Admin: 04/16/21 03:27 Dose: 100 mg Documented by: Metronidazole (Metronidazole 250 Mg Tab) 500 mg PO BIDMEALS [facility] Stop: 04/16/21 18:01 Last Admin: 04/16/21 18:02 Dose: 500 mg Documented by: Metronidazole (Metronidazole 250 Mg Tab) 500 mg PO ONETIME ONE Stop: 04/16/21 11:01 Last Admin: 04/16/21 11:45 Dose: 500 mg Documented by: Nitrofurantoin Macrocrystals (Nitrofurantoin Monohydrate/Macrocrystalline 100 Mg Cap) 100 mg PO BID [facility] Stop: 04/16/21 22:00 Ondansetron HCl (Ondansetron 4 Mg/2 Ml Sdv) 4 mg IVPUSH ONETIME ONE Stop: 04/15/21 04:55 Last Admin: 04/15/21 04:58 Dose: 4 mg Documented by: - Exam General: Alert, Oriented HEENT: Pupils Equal, Pupils Reactive Neck: Supple Lungs: Wheezing (Significant and expiratory wheezing noted, minimal air movement in lower lung coughlin) Cardiovascular: Regular Rate, Regular Rhythm GI/Abdominal Exam: Normal Bowel Sounds, Soft, Non-Tender Back Exam: Normal Inspection Extremities: Normal Inspection, Non-Tender Peripheral Pulses: 2+: Radial (L), Radial (R) Skin: Warm, Dry Neurological: No New Focal Deficit Psy/Mental Status: Alert, Normal Affect, Normal Mood - Patient Data Lab Results Last 24 hrs: Laboratory Results - last 24 hr 04/16/21 Range/Units 06:09 Sodium 138 (136-145) mmol/L Potassium 3.9 (3.5-5.1) mmol/L Chloride 105 (98-107) mmol/L Carbon Dioxide 19 L (21-32) mmol/L Anion Gap 17.9 H (7-13) mEq/L BUN 6 L (7-18) mg/dL Creatinine 0.51 L (0.55-1.02) mg/dL Est Cr Clr Drug Dosing 148.15 mL/min Estimated GFR (MDRD) > 60 Glucose 144 H (70-99) mg/dL Calcium 8.4 L (8.5-10.1) mg/dL Magnesium 2.0 (1.8-2.4) mg/dL C-Reactive Protein 2.8 H (0.0-0.9) mg/dL Result Diagrams: 04/17/21 06:17 04/17/21 06:17 Osmar Results Last 24 hrs: Microbiology 04/15/21 03:54 Aerobic Blood Culture - Preliminary Blood - Venous - Iv Start NO GROWTH AFTER 2 DAYS Anaerobic Blood Culture - Preliminary NO GROWTH AFTER 2 DAYS Sepsis Event Note - Evaluation Sepsis Screening Result: No Definite Risk - Focused Exam Vital Signs: Vital Signs Temp Pulse Resp BP Pulse Ox Pulse Ox 04/17/21 06:00 94 L 94 L 04/17/21 03:16 97.8 F 96 20 115/64 94 L 04/17/21 00:00 97.0 F 112 H 18 113/59 L 90 L 04/16/21 22:42 79 99 04/16/21 20:00 96.7 F L 108 H 20 115/58 L 99 - Problem List & Annotations (1) Acute asthma exacerbation SNOMED Code(s): 851242532 Code(s): J45.901 - UNSPECIFIED ASTHMA WITH (ACUTE) EXACERBATION Status: Acute Current Visit: No Qualifiers: Asthma severity: mild Asthma persistence: intermittent Qualified Code(s): J45.21 - Mild intermittent asthma with (acute) exacerbation (2) Alcohol abuse SNOMED Code(s): 91050192 Code(s): F10.10 - ALCOHOL ABUSE, UNCOMPLICATED Status: Acute Current Visit: No (3) Exacerbation of asthma SNOMED Code(s): 178000532 Code(s): J45.901 - UNSPECIFIED ASTHMA WITH (ACUTE) EXACERBATION Status: Acute Current Visit: No Qualifiers: Asthma severity: moderate Asthma persistence: persistent Qualified Code(s): J45.41 - Moderate persistent asthma with (acute) exacerbation (4) SNOMED Code(s): 80837486 Code(s): Z34.90 - ENCNTR FOR SUPRVSN OF NORMAL , UNSP, UNSP TRIMESTER Status: Acute Current Visit: No Qualifiers: Weeks of gestation: unspecified Qualified Code(s): Z34.90 - Encounter for supervision of normal , unspecified, unspecified trimester (5) STD (female) SNOMED Code(s): 8074067, 431720409 Code(s): A64 - UNSPECIFIED SEXUALLY TRANSMITTED DISEASE Status: Acute Current Visit: No - Problem List Review Problem List Initiated/Reviewed/Updated: Yes - Assessment Assessment:: This is a 21-year-old female with past medical history of asthma, history of STD, recurrent UTI, depression with suicide attempt and nicotine dependence who presents to the emergency department with complaints of shortness of breath associated with wheezing and was admitted for acute asthma attack. Assessment: Acute: Asthma exacerbation with negative COVID-19 rapid test in ED; improved Leukocytosis, mild elevation LFTs 12 week Recent diagnosis of UTI on treatment Chronic: History of asthma Mild smoking history per patient History of STD and recurrent UTI Depression with suicide attempt - Plan Plan:: # Asthma exacerbation -Will continue with IV methylprednisolone 80 mg every 8 hours, consider transit ion to p.o. today however patient has significant wheezing and minimal air movement in lower lung coughlin and states that she is not close to baseline, hopeful to transition to p.o. prednisone possible discharge tomorrow -Patient indicates she does have a nebulizer at at home but she does not have an y further packets for it, also states she is out of her home inhaler -Patient is currently off oxygen -Continue scheduled duonebs and PRN albuterol -blood cultures negative # Tobacco use - recommended cessation - Offered nicotine patch but not interested at this time # Bacterial vaginosis - completed flagyl # 12 week - patient will need to follow up with family medicine/OB - vitamin # Anemia -no evidence of blood loss - some dilution component expected in but still lower than expected - vitamin including iron ordered, will need follow-up with family me liset/OB as outpatient General diet Upgrade to inpatient for further IV steroids, continued close respiratory monitoring, expect patient to discharge possibly tomorrow
[2021-04-17 06:58] LABS: ANION GAP 15.2 mEq/L (7-13); CHLORIDE,CL 105 mmol/L (98-107); SODIUM,NA 137 mmol/L (136-145)
[2021-04-17] MEDS: Prenatal Multivitamin with Calcium/Folic Acid/Iron Tab PO SCH (08:44)
[2021-04-17] MEDS: Nicotine 7 MG/24 Hr Patch TRDERM SCH (08:45)
[2021-04-17] MEDS: Albuterol 0.083% 2.5 MG/3 ML Neb Soln NEB PRN (09:30)
[2021-04-17] MEDS: Acetaminophen 325 MG Tab PO PRN ×2 (16:16→20:14)
[2021-04-17] MEDS ORDERED: Albuterol 0.083% 2.5 MG/3 ML Neb Soln NEB PRN (17:00)
[2021-04-18] MEDS: methylPREDNISolone Sodium Succinate 40 MG/1 ML SDV IVPUSH SCH (05:20)
[2021-04-18] MEDS: Albuterol/Ipratropium 3.0-0.5 MG/3 ML Neb Soln NEB SCH ×2 (05:21→06:14)
[2021-04-18] MEDS: Nicotine 7 MG/24 Hr Patch TRDERM SCH (09:38)
[2021-04-18] MEDS: Prenatal Multivitamin with Calcium/Folic Acid/Iron Tab PO SCH (09:39)
[2021-04-18 12:01] VITALS: BP 124/70; PULSE 96
== END 2021-04-18 12:46 | disposition home or self-care (01) | DRG 832 ==
LOC: DL.ED 02:45 → DL.MS 05:59 → OBSVTOIN 04-17 09:19
PROVIDERS: ADMIT Internal Medicine; ATTEND Internal Medicine
DX: O99.511 Diseases of the respiratory system complicating pregnancy, first trimester (principal); J45.41 Moderate persistent asthma with (acute) exacerbation; O99.341 Other mental disorders complicating pregnancy, first trimester; O99.331 Smoking (tobacco) complicating pregnancy, first trimester; O99.011 Anemia complicating pregnancy, first trimester; F17.210 Nicotine dependence, cigarettes, uncomplicated; O23.591 Infection of other part of genital tract in pregnancy, first trimester; F32.9 Major depressive disorder, single episode, unspecified; Z20.822 Contact with and (suspected) exposure to COVID-19; N76.0 Acute vaginitis; R73.9 Hyperglycemia, unspecified; R74.8 Abnormal levels of other serum enzymes; D72.829 Elevated white blood cell count, unspecified; F10.10 Alcohol abuse, uncomplicated; D64.9 Anemia, unspecified; Z87.440 Personal history of urinary (tract) infections; Z79.52 Long term (current) use of systemic steroids; Z79.899 Other long term (current) drug therapy; Z3A.12 12 weeks gestation of pregnancy
CPT/HCPCS: 36415; 71045; 80048; 80053; 83605; 83735; 85025; 86140; 87040; 94640; A9270-GY; J2405; J2920; J2930; J3475; J7613-GY; J7620-GY; U0002

== ENCOUNTER 2021-07-20 17:07 | Emergency (ER) | payer SELFPAY ==
[2021-07-20] MEDS ORDERED: Oseltamivir 75 MG Cap PO ONE ×2 (17:08→19:31)
[2021-07-20] MEDS ORDERED: Albuterol 0.083% 2.5 MG/3 ML Neb Soln INH ONE (17:08)
[2021-07-20] MEDS ORDERED: Acetaminophen 325 MG Tab PO ONE (17:54)
[2021-07-20 18:03] VITALS: BP 109/62
[2021-07-20 18:38] LABS: CORONAVIRUS COVID-19 NAA NEGATIVE (NEGATIVE)
[2021-07-20] MEDS ORDERED: Albuterol/Ipratropium 3.0-0.5 MG/3 ML Neb Soln NEB ONE (19:30)
--- NOTE | 2021-07-20 19:31 | EDM.PDOC ---
ED HPI GENERAL MEDICAL PROBLEM - General Chief Complaint: General Stated Complaint: BODY ACHES, SHORTNESS OF BREATH, FLU Time Seen by Provider: 07/20/21 19:31 Source of Information: Reports: Patient History Limitations: Reports: No Limitations - History of Present Illness INITIAL COMMENTS - FREE TEXT/NARRATIVE: 21 y/o F c/o fever, cills, sweats, cough, asthma exacerbation for 2 days. Pt has been using tylenol which has helped with everything except her asthma. Has been using albuterol nebs at home with no relief. Is 23 weeks with no complications. Denies drugs, etoh. - Related Data Allergies Allergy/AdvReac Type Severity Reaction Status Date / Time No Known Allergies Allergy Verified 07/20/21 17:43 Home Meds: Home Meds Pnv No.95/Ferrous Fum/Folic AC [ Caplet] 1 cap PO DAILY 04/15/21 [History] Ondansetron [Ondansetron ODT] 4 mg PO Q4H PRN 04/16/21 [History] Albuterol Sulfate [Albuterol Sulfate HFA] 2 puff INH Q4H PRN #1 ea 04/18/21 [Rx] Albuterol [Proventil Neb Soln] 2.5 mg NEB QID PRN 999 Days #30 neb 04/18/21 [Rx] Albuterol/Ipratropium [DuoNeb 3.0-0.5 MG/3 ML] 3 ml NEB QID PRN #60 neb 04/18/21 [Rx] Past Medical History - Past Health History Medical/Surgical History: Denies Medical/Surgical History HEENT History: Reports: None Cardiovascular History: Reports: None Respiratory History: Reports: Asthma Gastrointestinal History: Reports: None Genitourinary History: Reports: STD, UTI, Recurrent 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: , Other (See Below) Other PEDIATRIC ORTHODONTIST History: STD Musculoskeletal History: Reports: None Neurological History: Reports: None Psychiatric History: Reports: Depression, Suicide Attempt Endocrine/Metabolic History: Reports: None Hematologic History: Reports: None Immunologic History: Reports: None Oncologic (Cancer) History: Reports: None Dermatologic History: Reports: None - Infectious Disease History Infectious Disease History: Reports: None - Past Surgical History Head Surgeries/Procedures: Reports: None GI Surgical History: Reports: Cholecystectomy Social & Family History - Family History Family Medical History: No Pertinent Family History - Tobacco Use Tobacco Use Status *Q: Never Tobacco User Second Hand Smoke Exposure: No - Caffeine Use Caffeine Use: Reports: Soda - Recreational Drug Use Recreational Drug Use: No - Living Situation & Occupation Living situation: Reports: with Family ED ROS GENERAL - Review of Systems Review Of Systems: Comprehensive ROS is negative, except as noted in HPI. ED EXAM, GENERAL - Physical Exam Exam: See Below Exam Limited By: No Limitations General Appearance: Alert, No Apparent Distress Eye Exam: Bilateral Eye: PERRL Ears: Normal External Exam, Normal Canal, Hearing Grossly Normal, Normal TMs Nose: Nasal Drainage Throat/Mouth: Normal Inspection, Normal Lips, Normal Teeth, Normal Gums, Normal Oropharynx, Normal Voice, No Airway Compromise Head: Atraumatic, Normocephalic Neck: Supple, Non-Tender, Full Range of Motion, Lymphadenopathy (L), Lymphadenopathy (R) Respiratory/Chest: Wheezing (bilaterally) Cardiovascular: No JVD, No Murmur, Tachycardia GI/Abdominal: Soft, Non-Tender Back Exam: Normal Inspection, Full Range of Motion Extremities: Normal Inspection, Normal Range of Motion, Non-Tender, Normal Capillary Refill, No Pedal Edema Neurological: Alert, Oriented Skin Exam: Warm, Dry, Intact Course - Vital Signs Last Recorded V/S: Last Vital Signs Temp 101.1 F H 07/20/21 18:04 Pulse 122 H 07/20/21 19:46 Resp 22 H 07/20/21 18:02 BP 109/62 07/20/21 18:02 Pulse Ox 95 07/20/21 18:02 - Orders/Labs/Meds Orders: Active Orders 24 hr Category Date Time Status RT Aerosol Therapy [RC] ASDIRECTED Care 07/20/21 19:31 Active Labs: Laboratory Tests 07/20/21 07/20/21 Range/Units 17:35 17:50 Urine Color Yellow (YELLOW) Urine Appearance Slightly cloudy (CLEAR) Urine pH 7.5 (5.0-9.0) Ur Specific [place] 1.025 (1.005-1.030) Urine Protein 30 H (NEGATIVE) Urine Glucose (UA) Negative (NEGATIVE) Urine Ketones 15 H (NEGATIVE) Urine Occult Blood Negative (NEGATIVE) Urine Nitrite Negative (NEGATIVE) Urine Bilirubin Negative (NEGATIVE) Urine Urobilinogen 0.2 (0.2-1.0) mg/dL Ur Leukocyte Esterase Negative (NEGATIVE) Urine RBC 5-10 H (0-5) /HPF Urine WBC 0-5 (0-5/HPF) /HPF Ur Epithelial Cells Moderate H (NOT SEEN) /HPF Amorphous Sediment Few (NOT SEEN) /HPF Urine Bacteria Few (0-FEW/HPF) /HPF Urine Mucus Rare (NOT SEEN) /LPF Influenza Type A RNA Positive H (NEGATIVE) Influenza Type B RNA Negative (NEGATIVE) SARS-CoV-2 RNA (MALENA) Negative (NEGATIVE) Meds: Medications Discontinued Medications Generic Name Dose Route Start Last Admin Trade Name Ethan PRN Reason Stop Dose Admin Acetaminophen 650 mg 07/20/21 17:54 07/20/21 18:04 Acetaminophen 325 Mg Tab PO 07/20/21 17:55 650 mg NOW ONE Administration Albuterol/Ipratropium 6 ml 07/20/21 19:30 07/20/21 19:44 Albuterol/Ipratropium 3.0-0.5 Mg/3 Ml Neb Soln NEB 07/20/21 19:31 3 ml ONETIME ONE Administration Oseltamivir Phosphate 75 mg 07/20/21 19:31 07/20/21 19:54 Oseltamivir 75 Mg Cap PO 07/20/21 19:32 75 mg ONETIME ONE Administration - Re-Assessments/Exams Free Text/Narrative Re-Assessment/Exam: 07/20/21 20:18 The pt feels some relief with her asthma after the duo neb but still complains of cough. Her lung sounds are clear at this time and I believe the rest of her sob is tied to her influenza. I will discharge her her home with an RX for Tamiflu Departure - Departure Time of Disposition: 20:20 Disposition: Home, Self-Care 01 Condition: Fair Clinical Impression: Influenza A - Discharge Information *PRESCRIPTION DRUG MONITORING PROGRAM REVIEWED*: Not Applicable *COPY OF PRESCRIPTION DRUG MONITORING REPORT IN PATIENT SANJU: Not Applicable Instructions: Influenza, Adult, [id number] Forms: ED Department Discharge Additional Instructions: RX Tamiflu Use Tylenol fro fever and pain control as needed. Drink plenty of fluids to maintain hydration. Continue your nebs at home as needed for asthma. Isolate away from people until you are fever free for 24hr with no Tylenol in your system. The flu usually last around 7 days but can last up to 2 weeks. If any new symptoms or concerns develop contact your primary care facility or return to the ER. Sepsis Event Note (ED) - Evaluation Sepsis Screening Result: No Definite Risk - Focused Exam Vital Signs: Vital Signs Temp Temp Pulse Resp BP Pulse Ox 07/20/21 19:46 122 H 07/20/21 18:04 101.1 F H 07/20/21 18:02 101.1 F H 133 H 22 H 109/62 95 - My Orders Last 24 Hours: My Active Orders 07/20/21 19:31 RT Aerosol Therapy [RC] ASDIRECTED - Assessment/Plan Last 24 Hours: My Active Orders 07/20/21 19:31 RT Aerosol Therapy [RC] ASDIRECTED
[2021-07-20] MEDS ORDERED: Albuterol/Ipratropium 3.0-0.5 MG/3 ML Neb Soln ONE (20:22)
[2021-07-20 20:29] VITALS: PULSE 120
[2021-07-20] MEDS ORDERED: Oseltamivir 75 MG Cap ONE (20:29)
[2021-07-20] MEDS ORDERED: Albuterol 0.083% 2.5 MG/3 ML Neb Soln ONE (21:04)
== END 2021-07-20 21:08 | disposition home or self-care (01) ==
LOC: DL.ED 17:07
DX: O99.512 Diseases of the respiratory system complicating pregnancy, second trimester (principal); J10.1 Influenza due to other identified influenza virus with other respiratory manifestations; Z20.822 Contact with and (suspected) exposure to COVID-19; Z79.899 Other long term (current) drug therapy; Z3A.23 23 weeks gestation of pregnancy
CPT/HCPCS: 0240U; 81001; 94640; 99283; A9270; J7613-GY; J7620-GY

== ENCOUNTER 2021-09-03 02:00 | Emergency (ER) | payer BC ==
[2021-09-03] MEDS ORDERED: Albuterol/Ipratropium 3.0-0.5 MG/3 ML Neb Soln NEB ONE (02:42)
[2021-09-03 02:48] VITALS: BP 125/70
[2021-09-03 03:02] LABS: CORONAVIRUS COVID-19 NAA POSITIVE (NEGATIVE)
[2021-09-03] MEDS ORDERED: HYDROmorphone 0.5 MG/0.5 ML Syringe IVPUSH ONE ×2 (03:31→03:32)
[2021-09-03] MEDS ORDERED: Sodium Chloride 0.9% 1,000 ML IV ONE (03:32)
[2021-09-03 03:33] VITALS: PULSE 98
== END 2021-09-03 03:33 | disposition home or self-care (01) ==
LOC: DL.ED 02:00
DX: O98.513 Other viral diseases complicating pregnancy, third trimester (principal); U07.1 COVID-19; O99.511 Diseases of the respiratory system complicating pregnancy, first trimester; J45.41 Moderate persistent asthma with (acute) exacerbation; Z3A.32 32 weeks gestation of pregnancy
CPT/HCPCS: 0240U; 94640; 99283; J7620-GY

== ENCOUNTER 2021-10-22 14:13 | Inpatient (IN) | payer BC, MEDICAID ==
[2021-10-22] MEDS ORDERED: Penicillin G Potassium 5 MILLUNITS in Sodium Chloride 0.9% 100 ML IV ONE ×2 (15:17→15:30)
[2021-10-22] MEDS ORDERED: Carboprost Tromethamine 250 MCG/1 ML Amp IM PRN (15:18)
[2021-10-22] MEDS ORDERED: Lidocaine 1% 30 ML SDV INJECT PRN (15:18)
[2021-10-22] MEDS ORDERED: Methylergonovine 0.2 MG/1 ML Amp IM PRN (15:18)
[2021-10-22] MEDS ORDERED: fentaNYL 100 MCG/2 ML SDV IVPUSH PRN (15:18)
[2021-10-22] MEDS ORDERED: Nalbuphine 10 MG/1 ML Vial IVPUSH PRN (15:18)
[2021-10-22] MEDS ORDERED: Tranexamic Acid 1,000 MG in Sodium Chloride 0.9% 100 ML IV PRN (15:18)
[2021-10-22] MEDS ORDERED: Acetaminophen 325 MG Tab PO PRN (15:18)
[2021-10-22] MEDS ORDERED: Nalbuphine 10 MG/1 ML Vial IM PRN (15:18)
[2021-10-22] MEDS ORDERED: Ondansetron 4 MG/2 ML SDV IVPUSH PRN (15:18)
[2021-10-22] MEDS ORDERED: Sodium Chloride 0.9% 10 ML Syringe FLUSH PRN (15:18)
[2021-10-22] MEDS ORDERED: Misoprostol 400 MCG (4 X 100 MCG TAB) RECTAL PRN (15:18)
[2021-10-22] MEDS ORDERED: Lactated Ringers 1,000 ML IV ONE (15:18)
[2021-10-22] MEDS ORDERED: Oxytocin/Normal Saline 30 UNIT/500 ML BAG IV SCH (15:30)
[2021-10-22] MEDS: Lactated Ringers 1,000 ML IV SCH ×3 (15:45→23:31)
[2021-10-22] MEDS: Penicillin G Potassium 3 MILLUNITS in Sodium Chloride 0.9% 100 ML IV SCH ×2 (19:23→23:30)
[2021-10-22] MEDS ORDERED: Sodium Chloride 0.9% 20 ML SDV ONE (20:42)
[2021-10-22] MEDS ORDERED: EPINEPHrine 1 MG/ML SDV ONE ×2 (20:42)
[2021-10-22] MEDS ORDERED: Sodium Bicarbonate 4.2% 2.5 MEQ/5 ML SDV ONE ×2 (20:42)
[2021-10-22] MEDS ORDERED: fentaNYL 100 MCG/2 ML SDV ONE (20:42)
[2021-10-22] MEDS ORDERED: fentaNYL 100 MCG/2 ML SDV ITHECAL ONE (20:42)
[2021-10-22] MEDS ORDERED: ePHEDrine 50 MG/ML SDV ONE (20:59)
[2021-10-22] MEDS ORDERED: ePHEDrine 50 MG/ML SDV IVPUSH STA (21:01)
[2021-10-23] MEDS ORDERED: Simethicone 80 MG Tab.Chew PO PRN (02:21)
[2021-10-23] MEDS ORDERED: Oxytocin 10 Units/1 ML SDV IM PRN (02:21)
[2021-10-23] MEDS ORDERED: Benzocaine/Menthol 20%-0.5% Spray 78 GM Cannister TOP PRN (02:21)
[2021-10-23] MEDS: Ibuprofen 800 MG Tab PO PRN ×2 (08:53→20:10)
[2021-10-23] MEDS: Prenatal Multivitamin with Calcium/Folic Acid/Iron Tab PO SCH (08:54)
[2021-10-23] MEDS: Docusate Sodium 100 MG Cap PO PRN ×2 (08:54→20:10)
[2021-10-23] MEDS: Acetaminophen 325 MG Tab PO PRN (15:05)
[2021-10-24] MEDS: Acetaminophen 325 MG Tab PO PRN ×3 (08:04→23:19)
[2021-10-24] MEDS: Ibuprofen 800 MG Tab PO PRN ×2 (08:05→16:57)
[2021-10-24] MEDS: Prenatal Multivitamin with Calcium/Folic Acid/Iron Tab PO SCH (08:05)
[2021-10-24] MEDS: Docusate Sodium 100 MG Cap PO PRN (08:05)
[2021-10-24] MEDS: Ferrous Sulfate 325 MG Tab PO SCH (08:29)
[2021-10-25] MEDS: Ferrous Sulfate 325 MG Tab PO SCH (08:14)
[2021-10-25] MEDS: Ibuprofen 800 MG Tab PO PRN (08:14)
[2021-10-25] MEDS: Prenatal Multivitamin with Calcium/Folic Acid/Iron Tab PO SCH (08:14)
[2021-10-25] MEDS: Docusate Sodium 100 MG Cap PO PRN (08:16)
[2021-10-25 08:46] VITALS: BP 114/70; PULSE 78
== END 2021-10-25 12:10 | disposition home or self-care (01) | DRG 560 ==
LOC: DL.OBCHECK 14:13 → DL.OB 15:18 → UNDOADMOB 15:18 → DL.OB 10-23 01:56 → UNDOADMOB 10-23 01:56 → OBSVTOIN 10-25 01:56 → INTOOBSV 10-25 01:56 → UNDODISOB 10-25 12:10
PROVIDERS: ADMIT Family Medicine; ATTEND Family Medicine
PROC: 10D07Z6 Extraction of Products of Conception, Vacuum, Via Natural or Artificial Opening (ICD-10-PCS; principal; 2021-10-25)
PROC: 0KQM0ZZ Repair Perineum Muscle, Open Approach (ICD-10-PCS; 2021-10-25)
DX: O42.92 Full-term premature rupture of membranes, unspecified as to length of time between rupture and onset of labor (principal); O99.824 Streptococcus B carrier state complicating childbirth; O99.02 Anemia complicating childbirth; Z3A.39 39 weeks gestation of pregnancy; Z37.0 Single live birth; Z90.49 Acquired absence of other specified parts of digestive tract
CPT/HCPCS: 01967; 36415; 59409; 85027; 86592; A9270-GY; J0171; J2300; J2405; J2540; J2590; J3010; J7120

== ENCOUNTER 2021-12-14 02:12 | Emergency (ER) | payer BC, MEDICAID ==
[2021-12-14] MEDS ORDERED: methylPREDNISolone Sodium Succinate 125 MG/2 ML SDV IVPUSH ONE (02:20)
[2021-12-14] MEDS ORDERED: Albuterol/Ipratropium 3.0-0.5 MG/3 ML Neb Soln NEB ONE (02:20)
[2021-12-14 02:25] VITALS: BP 130/88; PULSE 93
[2021-12-14 03:09] LABS: ANION GAP 15.8 mEq/L (7-13); CHLORIDE,CL 108 mmol/L (98-107); SODIUM,NA 143 mmol/L (136-145)
[2021-12-14 03:13] LABS: CORONAVIRUS COVID-19 NAA NEGATIVE (NEGATIVE)
== END 2021-12-14 04:34 | disposition home or self-care (01) ==
LOC: DL.ED 02:12
DX: J45.909 Unspecified asthma, uncomplicated (principal); J06.9 Acute upper respiratory infection, unspecified; Z86.16 Personal history of COVID-19; Z20.822 Contact with and (suspected) exposure to COVID-19
CPT/HCPCS: 0240U; 36415; 71045; 80053; 83735; 84703; 85025; 87081; 87430; 96374; 99285; J2930; J7620-GY

== ENCOUNTER 2021-12-27 09:22 | Emergency (ER) | payer BC, MEDICAID ==
[2021-12-27 09:45] VITALS: BP 100/75; PULSE 103
[2021-12-27] MEDS ORDERED: methylPREDNISolone Sodium Succinate 125 MG/2 ML SDV IVPUSH ONE (10:17)
[2021-12-27] MEDS ORDERED: Albuterol/Ipratropium 3.0-0.5 MG/3 ML Neb Soln NEB ONE (11:10)
== END 2021-12-27 11:58 | disposition home or self-care (01) ==
LOC: DL.ED 09:22
DX: J45.41 Moderate persistent asthma with (acute) exacerbation (principal); F17.210 Nicotine dependence, cigarettes, uncomplicated; Z79.899 Other long term (current) drug therapy; Z90.49 Acquired absence of other specified parts of digestive tract; Z20.822 Contact with and (suspected) exposure to COVID-19
CPT/HCPCS: 71045; 87635; 94640; 96374; 99285; J2930; J7620-GY; U0002

== ENCOUNTER 2022-05-05 18:53 | Emergency (ER) | payer BC, MEDICAID ==
[~2022-05-05 18:53] MED LIST: Albuterol/Ipratropium 3.0-0.5 MG/3 ML Neb Soln INH ONE; methylPREDNISolone Sodium Succinate 125 MG/2 ML SDV IM ONE
[2022-05-05] MEDS ORDERED: Albuterol 0.083% 2.5 MG/3 ML Neb Soln INH ONE ×2 (19:55→20:28)
[2022-05-05] MEDS ORDERED: Azithromycin 250 MG Tab PO ONE (20:08)
[2022-05-29 11:25] LABS: ANION GAP 12.3 mEq/L (7-13); CHLORIDE,CL 104 mmol/L (98-107); ESTIMATED GFR 118 mL/min (>=60); SODIUM,NA 140 mmol/L (136-145)
[2022-05-29 11:27] LABS: CORONAVIRUS COVID-19 NAA NEGATIVE (NEGATIVE)
== END 2022-05-05 20:32 | disposition home or self-care (01) ==
LOC: DL.ED 18:53
DX: J45.901 Unspecified asthma with (acute) exacerbation (principal)
CPT/HCPCS: 99285; J2930; 99283; A9270-GY; J7613-GY; J7620-GY

== ENCOUNTER 2022-05-05 18:53 | Emergency (ER) | payer BC, MEDICAID ==
[2022-05-05] MEDS ORDERED: Albuterol 0.083% 2.5 MG/3 ML Neb Soln INH ONE ×2 (19:55→20:28)
[2022-05-05] MEDS ORDERED: Azithromycin 250 MG Tab PO ONE (20:08)
== END 2022-05-06 11:08 | disposition home or self-care (01) ==
LOC: DL.ED 18:53
DX: J45.901 Unspecified asthma with (acute) exacerbation (principal); B34.9 Viral infection, unspecified
CPT/HCPCS: 94640; 99284; A9270-GY; J7613-GY

== ENCOUNTER 2022-07-21 12:34 | Emergency (ER) | payer BC, MEDICAID ==
[2022-07-21] MEDS ORDERED: Albuterol 0.083% 2.5 MG/3 ML Neb Soln INH ONE (12:35)
[2022-07-21] MEDS ORDERED: predniSONE 20 MG Tab PO ONE ×2 (12:35→12:53)
[2022-07-21] MEDS ORDERED: Albuterol/Ipratropium 3.0-0.5 MG/3 ML Neb Soln NEB ONE (12:53)
[2022-07-21] MEDS ORDERED: Benzonatate 100 MG Cap PO ONE (12:53)
[2022-07-21 12:57] VITALS: BP 116/78; PULSE 136
[2022-07-21 13:35] LABS: RESPIRATORY SYNCYTIAL VIR NAA NEGATIVE (NEGATIVE)
[2022-07-21 13:41] LABS: CORONAVIRUS COVID-19 NAA POSITIVE (NEGATIVE)
[2022-07-21] MEDS ORDERED: predniSONE 20 MG Tab ONE (13:42)
[2022-07-21] MEDS ORDERED: Albuterol 0.083% 2.5 MG/3 ML Neb Soln ONE (13:43)
== END 2022-07-21 13:53 | disposition home or self-care (01) ==
LOC: DL.ED 12:34
DX: U07.1 COVID-19 (principal); Z79.899 Other long term (current) drug therapy; Z90.49 Acquired absence of other specified parts of digestive tract
CPT/HCPCS: 0241U; 99284; A9270; J7512; J7613-GY; J7620-GY

== ENCOUNTER 2022-08-04 20:34 | Emergency (ER) | payer BC, MEDICAID ==
[2022-08-04] MEDS ORDERED: Azithromycin 250 MG Tab PO ONE ×2 (20:35→21:51)
[2022-08-04] MEDS ORDERED: predniSONE 20 MG Tab PO ONE (20:35)
[2022-08-04 20:50] VITALS: BP 120/80; PULSE 112
[2022-08-04] MEDS ORDERED: Albuterol/Ipratropium 3.0-0.5 MG/3 ML Neb Soln NEB ONE (21:08)
[2022-08-04 21:46] LABS: ANION GAP 13.2 mEq/L (7-13)
[2022-08-04] MEDS ORDERED: methylPREDNISolone Sodium Succinate 125 MG/2 ML SDV IM ONE (21:51)
[2022-08-04] MEDS ORDERED: predniSONE 20 MG Tab ONE (21:57)
[2022-08-04] MEDS ORDERED: Azithromycin 250 MG Tab ONE (21:57)
== END 2022-08-04 22:19 | disposition home or self-care (01) ==
LOC: DL.ED 20:34
DX: J06.9 Acute upper respiratory infection, unspecified (principal); J45.909 Unspecified asthma, uncomplicated; Z72.0 Tobacco use; Z79.899 Other long term (current) drug therapy; Z90.49 Acquired absence of other specified parts of digestive tract
CPT/HCPCS: 36415; 71046; 80053; 85025; 96372; 99285; A9270; J2930; J7512; J7620-GY

== ENCOUNTER 2023-04-01 20:43 | Emergency (ER) | payer BC, MEDICAID ==
[2023-04-01 21:05] VITALS: BP 125/75; PULSE 122
[2023-04-01] MEDS: Albuterol/Ipratropium 3.0-0.5 MG/3 ML Neb Soln NEB ONE ×2 (21:16→22:30)
[2023-04-01] MEDS: Magnesium Sulfate/Water 2 GM in Premix Bag 1 BAG IV ONE (22:30)
[2023-04-01] MEDS: Take Home: Albuterol/Ipratropium 3.0-0.5 MG/3 ML Neb Soln, 5 Neb Pack NEB ONE (22:33)
== END 2023-04-01 23:04 | disposition home or self-care (01) ==
LOC: DL.ED 20:43
DX: J45.901 Unspecified asthma with (acute) exacerbation (principal); F17.210 Nicotine dependence, cigarettes, uncomplicated; Z20.822 Contact with and (suspected) exposure to COVID-19
CPT/HCPCS: 71045; 87635; 87804; 96365; 99283; 99285; A9270; J3475; J7620-GY; U0002

== ENCOUNTER 2023-04-02 12:57 | Inpatient (IN) | payer MEDICAID ==
[2023-04-02] MEDS ORDERED: Albuterol/Ipratropium 3.0-0.5 MG/3 ML Neb Soln NEB ONE (13:03)
[2023-04-02] MEDS ORDERED: methylPREDNISolone Sodium Succinate 40 MG/1 ML SDV IVPUSH ONE (13:10)
[2023-04-02] MEDS ORDERED: Budesonide 0.5 MG/2 ML Neb Susp NEB ONE (13:10)
[2023-04-02] MEDS ORDERED: Magnesium Sulfate/Water 2 GM in Premix Bag 1 BAG IV ONE ×2 (13:48→14:58)
[2023-04-02 14:17] LABS: HEMATOCRIT 38.2 % (37.0-47.0); HEMOGLOBIN 12.9 g/dL (12.0-16.0); LYMPHOCYTES PERCENT AUTO 4.3 % (20.5-50.1); MEAN CORPUSCULAR HEMOGLOBIN 29.2 pg (27.0-34.0); MEAN CORPUSCULAR HGB CONC 33.8 g/dL (33.0-35.0); MEAN CORPUSCULAR VOLUME 86.4 fL (80-100); MONOCYTES PERCENT AUTO 4.3 % (2-8); NEUTROPHILS PERCENT AUTO 91.4 % (42.2-75.2); PLATELET COUNT,PLT 313 10^3/uL (150-450); RED BLOOD CELL COUNT 4.42 10^6/uL (4.2-5.4); WHITE BLOOD CELL COUNT,WBC 24.5 10^3/uL (5.0-10.0)
[2023-04-02 14:38] LABS: ALANINE AMINOTRANSFERASE,ALT 56 U/L (14-59); ALBUMIN 3.7 g/dL (3.4-5.0); ALKALINE PHOSPHATASE 99 U/L (46-116); ASPARTATE AMNIOTRANSFERASE,AST 33 U/L (15-37); BILIRUBIN TOTAL 0.3 mg/dL (0.2-1.0); BLOOD UREA NITROGEN,BUN 10 mg/dL (7-18); BUN/CREATININE RATIO 12.2 (No establ ref range); C-REACTIVE PROTEIN 0.29 ng/dL (<=0.30); CALCIUM 8.7 mg/dL (8.5-10.1); CARBON DIOXIDE,CO2 22 mmol/L (21-32); CHLORIDE,CL 105 mmol/L (98-107); CREATININE 0.82 mg/dL (0.55-1.02); EST CRCL DRUG DOSING (CG) 90.56 mL/min; GLUCOSE RANDOM 150 mg/dL (70-99); PROTEIN TOTAL,TP 7.3 g/dL (6.4-8.2); SODIUM,NA 139 mmol/L (136-145); TSH ULTRASENSITIVE 0.19 uIU/mL (0.36-3.74)
[2023-04-02 14:40] LABS: ESTIMATED GFR 102 mL/min (>=60)
[2023-04-02] MEDS ORDERED: Sodium Chloride 0.9% 1,000 ML IV ONE (14:50)
[2023-04-02] MEDS ORDERED: Sennosides/Docusate Sodium 50-8.6 MG Tab PO PRN (16:43)
[2023-04-02] MEDS ORDERED: Ondansetron 4 MG Tab.DIS PO PRN (16:43)
[2023-04-02] MEDS ORDERED: Morphine 2 MG/ML SYRINGE IVPUSH PRN (16:43)
[2023-04-02] MEDS ORDERED: oxyCODONE 5 MG Tab PO PRN (16:43)
[2023-04-02] MEDS ORDERED: Albuterol 0.083% 2.5 MG/3 ML Neb Soln NEB PRN (16:43)
[2023-04-02] MEDS ORDERED: Acetaminophen 325 MG Tab PO PRN (16:43)
[2023-04-02] MEDS ORDERED: Sodium Chloride 0.9% 10 ML Syringe FLUSH PRN (16:56)
[2023-04-02] MEDS: Albuterol/Ipratropium 3.0-0.5 MG/3 ML Neb Soln NEB SCH ×2 (17:17→21:02)
[2023-04-02] MEDS: Nicotine 14 MG/24 Hr Patch TRDERM SCH (18:01)
[2023-04-02] MEDS: methylPREDNISolone Sodium Succinate 125 MG/2 ML SDV IVPUSH SCH (20:44)
[2023-04-03] MEDS: Benzocaine/Cetylpyridinium/Menthol Lozenge MUCMEM PRN ×2 (00:07→16:28)
[2023-04-03] MEDS: Albuterol/Ipratropium 3.0-0.5 MG/3 ML Neb Soln NEB SCH ×5 (01:14→17:32)
[2023-04-03] MEDS: methylPREDNISolone Sodium Succinate 125 MG/2 ML SDV IVPUSH SCH (04:55)
[2023-04-03 06:29] LABS: HEMATOCRIT 39.1 % (37.0-47.0); HEMOGLOBIN 13.1 g/dL (12.0-16.0); LYMPHOCYTES PERCENT AUTO 3.9 % (20.5-50.1); MEAN CORPUSCULAR HEMOGLOBIN 29.2 pg (27.0-34.0); MEAN CORPUSCULAR HGB CONC 33.5 g/dL (33.0-35.0); MEAN CORPUSCULAR VOLUME 87.3 fL (80-100); MONOCYTES PERCENT AUTO 2.4 % (2-8); NEUTROPHILS PERCENT AUTO 93.7 % (42.2-75.2); PLATELET COUNT,PLT 297 10^3/uL (150-450); RED BLOOD CELL COUNT 4.48 10^6/uL (4.2-5.4)
[2023-04-03 06:34] LABS: ANION GAP 17.3 mEq/L (7-13); CALCIUM 8.4 mg/dL (8.5-10.1); CREATININE 0.58 mg/dL (0.55-1.02); EST CRCL DRUG DOSING (CG) 128.04 mL/min; POTASSIUM,K 4.3 mmol/L (3.5-5.1)
[2023-04-03] MEDS ORDERED: methylPREDNISolone Sodium Succinate 125 MG/2 ML SDV IVPUSH SCH (10:00)
[2023-04-03 17:02] VITALS: BP 118/68
[2023-04-03 17:37] VITALS: PULSE 107
[2023-04-03] MEDS: Nicotine 14 MG/24 Hr Patch TRDERM SCH (17:54)
[2023-04-03] MEDS ORDERED: Formoterol/Mometasone 200-5 MCG 8.8 GM Inhaler IH SCH (18:00)
[2023-04-03] MEDS ORDERED: Benzonatate 100 MG Cap PO PRN (18:36)
== END 2023-04-03 19:43 | disposition left against medical advice (07) | DRG 189 ==
LOC: DL.ED 12:57 → DL.MS 15:55 → DL.ED 16:29
PROVIDERS: ADMIT Hospitalist; ATTEND Hospitalist
DX: J96.01 Acute respiratory failure with hypoxia (principal); J45.21 Mild intermittent asthma with (acute) exacerbation; D64.9 Anemia, unspecified; F17.210 Nicotine dependence, cigarettes, uncomplicated; Z90.49 Acquired absence of other specified parts of digestive tract; Z86.14 Personal history of Methicillin resistant Staphylococcus aureus infection; Z87.440 Personal history of urinary (tract) infections; Z20.822 Contact with and (suspected) exposure to COVID-19; Z99.81 Dependence on supplemental oxygen
CPT/HCPCS: 36415; 71046; 80048; 80053; 84145; 84443; 85025; 86140; 87804; 94640; 94664; 96374; 96375; 96376; 99223; 99238; 99284; 99285-25; A9270-GY; J2920; J2930; J3475; J3490; J7030; J7620-GY; U0002

== ENCOUNTER 2023-08-05 17:57 | Emergency (ER) | payer MEDICAID | END 2023-08-05 19:20 | disposition left against medical advice (07) | LOC: DL.ED 17:57 | DX: Z53.21 Procedure and treatment not carried out due to patient leaving prior to being seen by health care provider (principal) ==

== ENCOUNTER 2023-08-10 13:01 | Observation (INO) | payer MEDICAID ==
[2023-08-10] MEDS ORDERED: Albuterol/Ipratropium 3.0-0.5 MG/3 ML Neb Soln NEB ONE ×3 (13:11→13:31)
[2023-08-10] MEDS ORDERED: methylPREDNISolone Acetate 40 MG/ML SDV IM ONE (13:17)
[2023-08-10] MEDS ORDERED: Magnesium Sulfate/Water 2 GM in Premix Bag 1 BAG IV ONE (13:28)
[2023-08-10] MEDS ORDERED: Albuterol 0.083% 2.5 MG/3 ML Neb Soln NEB ONE (14:43)
[2023-08-10] MEDS ORDERED: Ibuprofen 600 MG Tab PO ONE (16:11)
[2023-08-10 16:14] LABS: CORONAVIRUS COVID-19 NAA NEGATIVE (NEGATIVE); INFLUENZA A NAA NEGATIVE (NEGATIVE); INFLUENZA B NAA NEGATIVE (NEGATIVE)
[2023-08-10] MEDS ORDERED: Albuterol/Ipratropium 3.0-0.5 MG/3 ML Neb Soln NEB PRN (17:29)
[2023-08-10] MEDS: Albuterol/Ipratropium 3.0-0.5 MG/3 ML Neb Soln NEB SCH ×2 (17:45→20:46)
[2023-08-10] MEDS ORDERED: hydrALAZINE 20 MG/ML SDV IVPUSH PRN (18:45)
[2023-08-10] MEDS ORDERED: Diltiazem 25 MG/5 ML SDV IVPUSH PRN (18:46)
[2023-08-10] MEDS ORDERED: HYDROmorphone 0.5 MG/0.5 ML Syringe IVPUSH PRN (18:47)
[2023-08-10] MEDS ORDERED: Naloxone 2 MG/2 ML Syringe IVPUSH PRN (18:47)
[2023-08-10] MEDS ORDERED: Magnesium Hydroxide 400 MG/5 ML Susp 30 ML Cup PO PRN (18:47)
[2023-08-10] MEDS ORDERED: Acetaminophen/oxyCODONE 325-5 MG Tab PO PRN (18:47)
[2023-08-10] MEDS ORDERED: Sodium Chloride 0.9% 10 ML Syringe FLUSH PRN (18:47)
[2023-08-10] MEDS ORDERED: Polyethylene Glycol 3350 Powder 17 GM Packet PO PRN (18:47)
[2023-08-10] MEDS ORDERED: Ondansetron 4 MG/2 ML SDV IVPUSH PRN (18:47)
[2023-08-10] MEDS ORDERED: Sennosides/Docusate Sodium 50-8.6 MG Tab PO PRN (18:47)
[2023-08-10] MEDS ORDERED: Acetaminophen 325 MG Tab PO PRN (18:47)
[2023-08-10] MEDS ORDERED: Temazepam 15 MG Cap PO PRN (18:51)
[2023-08-10] MEDS ORDERED: traMADol 50 MG Tab PO PRN (19:00)
[2023-08-10] MEDS ORDERED: Ketorolac 30 MG/ML SDV IVPUSH PRN (19:00)
[2023-08-10 19:17] LABS: BASOPHILS PERCENT AUTO 0.1 % (0.0-1.0); EOSINOPHILS PERCENT AUTO 0.1 % (1.0-3.0); HEMATOCRIT 39.3 % (37.0-47.0); HEMOGLOBIN 12.9 g/dL (12.0-16.0); LYMPHOCYTES PERCENT AUTO 2.1 % (20.5-50.1); MEAN CORPUSCULAR HEMOGLOBIN 28.7 pg (27.0-34.0); MEAN CORPUSCULAR HGB CONC 32.8 g/dL (33.0-35.0); MEAN CORPUSCULAR VOLUME 87.3 fL (80-100); MONOCYTES PERCENT AUTO 0.9 % (2-8); NEUTROPHILS PERCENT AUTO 96.8 % (42.2-75.2); PLATELET COUNT,PLT 322 10^3/uL (150-450); WHITE BLOOD CELL COUNT,WBC 13.7 10^3/uL (5.0-10.0)
[2023-08-10 19:28] LABS: HCG QUALITATIVE,SERUM NEGATIVE (NEGATIVE)
[2023-08-10 19:32] LABS: A/G RATIO 0.9; ALANINE AMINOTRANSFERASE,ALT 31 U/L (14-59); ALBUMIN 3.6 g/dL (3.4-5.0); ALKALINE PHOSPHATASE 104 U/L (46-116); ANION GAP 18.9 mEq/L (7-13); ASPARTATE AMNIOTRANSFERASE,AST 10 U/L (15-37); BILIRUBIN TOTAL 0.4 mg/dL (0.2-1.0); BLOOD UREA NITROGEN,BUN 6 mg/dL (7-18); BUN/CREATININE RATIO 6.1 (No establ ref range); C-REACTIVE PROTEIN 3.17 ng/dL (<=0.50); CARBON DIOXIDE,CO2 21 mmol/L (21-32); CHLORIDE,CL 103 mmol/L (98-107); CREATININE 0.99 mg/dL (0.55-1.02); EST CRCL DRUG DOSING (CG) 75.01 mL/min; GLUCOSE RANDOM 166 mg/dL (70-99); MAGNESIUM 2.2 mg/dL (1.8-2.4); POTASSIUM,K 3.9 mmol/L (3.5-5.1); PROTEIN TOTAL,TP 7.5 g/dL (6.4-8.2); SODIUM,NA 139 mmol/L (136-145)
[2023-08-10 19:54] LABS: ESTIMATED GFR 81 mL/min (>=60)
[2023-08-10] MEDS: methylPREDNISolone Sodium Succinate 125 MG/2 ML SDV IVPUSH SCH (20:46)
[2023-08-10] MEDS: Famotidine 20 MG/2 ML SDV IVPUSH SCH (20:46)
[2023-08-10] MEDS ORDERED: Lidocaine 5% 700 MG Patch TOP SCH (21:00)
[2023-08-10] MEDS ORDERED: diphenhydrAMINE 50 MG/ML SDV IVPUSH ONE (21:00)
[2023-08-10] MEDS ORDERED: methylPREDNISolone Sodium Succinate 40 MG/1 ML SDV IVPUSH SCH (21:00)
[2023-08-11] MEDS: Sodium Chloride 0.9% 10 ML Syringe FLUSH SCH ×2 (00:39→08:31)
[2023-08-11] MEDS: Albuterol/Ipratropium 3.0-0.5 MG/3 ML Neb Soln NEB SCH ×6 (00:39→13:02)
[2023-08-11] MEDS ORDERED: hydrOXYzine HCl 25 MG Tab PO PRN (00:41)
[2023-08-11 06:37] LABS: HEMATOCRIT 36.9 % (37.0-47.0); HEMOGLOBIN 12.1 g/dL (12.0-16.0); LYMPHOCYTES PERCENT AUTO 3.7 % (20.5-50.1); MEAN CORPUSCULAR HEMOGLOBIN 28.6 pg (27.0-34.0); MEAN CORPUSCULAR HGB CONC 32.8 g/dL (33.0-35.0); MEAN CORPUSCULAR VOLUME 87.2 fL (80-100); MONOCYTES PERCENT AUTO 2.8 % (2-8); NEUTROPHILS PERCENT AUTO 93.5 % (42.2-75.2); PLATELET COUNT,PLT 324 10^3/uL (150-450); RED BLOOD CELL COUNT 4.23 10^6/uL (4.2-5.4); WHITE BLOOD CELL COUNT,WBC 18.6 10^3/uL (5.0-10.0)
[2023-08-11 07:05] LABS: ALBUMIN 3.3 g/dL (3.4-5.0); BILIRUBIN TOTAL 0.2 mg/dL (0.2-1.0); BUN/CREATININE RATIO 16.7 (No establ ref range); C-REACTIVE PROTEIN 4.42 ng/dL (<=0.50); CALCIUM 8.8 mg/dL (8.5-10.1); CREATININE 0.72 mg/dL (0.55-1.02); EST CRCL DRUG DOSING (CG) 103.14 mL/min; MAGNESIUM 1.9 mg/dL (1.8-2.4); PROTEIN TOTAL,TP 7.1 g/dL (6.4-8.2)
[2023-08-11 07:10] LABS: A/G RATIO 0.87
[2023-08-11] MEDS ORDERED: Magnesium Oxide 400 MG Tab PO SCH (08:00)
[2023-08-11] MEDS ORDERED: Azithromycin 500 MG in Sodium Chloride 0.9% 250 ML IV SCH (08:00)
[2023-08-11] MEDS ORDERED: Codeine/guaiFENesin 10-100 MG/5 ML Syrup 5 ML Cup PO PRN (08:07)
[2023-08-11] MEDS: Famotidine 20 MG/2 ML SDV IVPUSH SCH (08:14)
[2023-08-11] MEDS: methylPREDNISolone Sodium Succinate 125 MG/2 ML SDV IVPUSH SCH ×3 (08:17→15:37)
[2023-08-11] MEDS ORDERED: Saccharomyces Boulardii (Probiotic) 250 MG Cap PO SCH (09:00)
[2023-08-11 11:54] VITALS: BP 100/47
[2023-08-11 13:45] VITALS: PULSE 133
== END 2023-08-11 16:14 | disposition home or self-care (01) ==
LOC: DL.ED 13:01 → DL.MS 16:51
PROVIDERS: ADMIT Internal Medicine; ATTEND Internal Medicine
DX: J45.901 Unspecified asthma with (acute) exacerbation (principal); R73.9 Hyperglycemia, unspecified; F17.210 Nicotine dependence, cigarettes, uncomplicated; D72.829 Elevated white blood cell count, unspecified; J96.01 Acute respiratory failure with hypoxia; Z79.51 Long term (current) use of inhaled steroids; Z20.822 Contact with and (suspected) exposure to COVID-19; Z79.899 Other long term (current) drug therapy
CPT/HCPCS: 0240U; 36415; 71046; 80053; 83735; 84703; 85025; 86140; 94010; 94060; 94640; 94644; 94667; 94668; 94760; 96365; 96372; 99284; 99285-25; A9270-GY; J0456; J1030; J1200; J2405; J2930; J3475; J3490; J7050; J7613-GY; J7620-GY

== ENCOUNTER 2023-10-14 08:17 | Observation (INO) | payer MEDICAID ==
[2023-10-14] MEDS: Albuterol/Ipratropium 3.0-0.5 MG/3 ML Neb Soln NEB ONE ×2 (08:38→10:05)
[2023-10-14] MEDS: Sodium Chloride 0.9% 1,000 ML IV ONE ×2 (08:40→11:15)
[2023-10-14] MEDS: Magnesium Sulfate/Water 2 GM in Premix Bag 1 BAG IV ONE (08:43)
[2023-10-14] MEDS: methylPREDNISolone Sodium Succinate 125 MG/2 ML SDV IVPUSH ONE (08:57)
[2023-10-14] MEDS: Iopamidol 755 Mg/ML 100 ML Bottle IVPUSH ONE (10:41)
[2023-10-14 10:47] LABS: BASOPHILS PERCENT AUTO 0.2 % (0.0-1.0); EOSINOPHILS PERCENT AUTO 2.6 % (1.0-3.0); HEMATOCRIT 36.5 % (37.0-47.0); HEMOGLOBIN 11.8 g/dL (12.0-16.0); LYMPHOCYTES PERCENT AUTO 5.7 % (20.5-50.1); MEAN CORPUSCULAR HEMOGLOBIN 28.1 pg (27.0-34.0); MEAN CORPUSCULAR HGB CONC 32.3 g/dL (33.0-35.0); MEAN CORPUSCULAR VOLUME 86.9 fL (80-100); MONOCYTES PERCENT AUTO 5.3 % (2-8); NEUTROPHILS PERCENT AUTO 86.2 % (42.2-75.2); PLATELET COUNT,PLT 296 10^3/uL (150-450); WHITE BLOOD CELL COUNT,WBC 10.5 10^3/uL (5.0-10.0)
[2023-10-14 10:55] LABS: ALBUMIN 3.4 g/dL (3.4-5.0); ANION GAP 12.3 mEq/L (7-13); BILIRUBIN TOTAL 0.3 mg/dL (0.2-1.0); BUN/CREATININE RATIO 8.1 (No establ ref range); CALCIUM 7.8 mg/dL (8.5-10.1); CREATININE 0.74 mg/dL (0.55-1.02); EST CRCL DRUG DOSING (CG) 100.35 mL/min; POTASSIUM,K 3.3 mmol/L (3.5-5.1); PROTEIN TOTAL,TP 6.7 g/dL (6.4-8.2)
[2023-10-14 11:00] LABS: B-TYPE NATRIURETIC PEPTIDE,BNP 9 pg/ml (0-100)
[2023-10-14] MEDS: cefTRIAXone 1 GM Vial IVPUSH ONE (11:43)
[2023-10-14] MEDS: Azithromycin 500 MG in Sodium Chloride 0.9% 250 ML IV ONE (11:43)
[2023-10-14] MEDS ORDERED: Albuterol/Ipratropium 3.0-0.5 MG/3 ML Neb Soln NEB PRN (11:50)
[2023-10-14 12:56] LABS: CORONAVIRUS COVID-19 NAA NEGATIVE (NEGATIVE); INFLUENZA A NAA NEGATIVE (NEGATIVE); INFLUENZA B NAA POSITIVE (NEGATIVE); RESPIRATORY SYNCYTIAL VIR NAA NEGATIVE (NEGATIVE)
[2023-10-14] MEDS ORDERED: Docusate Sodium 100 MG Cap PO PRN (14:11)
[2023-10-14] MEDS ORDERED: Ondansetron 4 MG Tab.DIS PO PRN (14:11)
[2023-10-14] MEDS: Budesonide 0.5 MG/2 ML Neb Susp NEB SCH (14:58)
[2023-10-14] MEDS: Nicotine 14 MG/24 Hr Patch TRDERM SCH (15:02)
[2023-10-14] MEDS: Azithromycin 250 MG Tab PO SCH (15:09)
[2023-10-14] MEDS: Albuterol 6.7 GM Inhaler INH PRN (15:35)
[2023-10-14] MEDS: Acetaminophen 325 MG Tab PO PRN (16:03)
[2023-10-14] MEDS: Albuterol/Ipratropium 3.0-0.5 MG/3 ML Neb Soln NEB SCH ×2 (17:00→23:35)
[2023-10-14] MEDS: Benzonatate 100 MG Cap PO PRN (17:30)
[2023-10-14] MEDS ORDERED: methylPREDNISolone Sod Succ 125 MG in Sodium Chloride 0.9% 100 ML IV SCH (21:00)
[2023-10-14] MEDS: Temazepam 15 MG Cap PO SCH (21:30)
[2023-10-14] MEDS: Sodium Chloride 0.9% 10 ML Syringe FLUSH SCH (21:30)
[2023-10-14] MEDS: methylPREDNISolone Sodium Succinate 125 MG/2 ML SDV IVPUSH SCH (21:30)
[2023-10-14] MEDS: Metoprolol Tartrate 5 MG/5 ML SDV IVPUSH ONE (21:30)
[2023-10-15] MEDS: Sodium Chloride 0.9% 10 ML Syringe FLUSH PRN (03:08)
[2023-10-15] MEDS: predniSONE 20 MG Tab PO SCH (09:32)
[2023-10-15 12:14] LABS: HEMATOCRIT 39.8 % (37.0-47.0); HEMOGLOBIN 12.9 g/dL (12.0-16.0); MEAN CORPUSCULAR HEMOGLOBIN 28.3 pg (27.0-34.0); MEAN CORPUSCULAR HGB CONC 32.4 g/dL (33.0-35.0); MEAN CORPUSCULAR VOLUME 87.3 fL (80-100); PLATELET COUNT,PLT 329 10^3/uL (150-450); RED BLOOD CELL COUNT 4.56 10^6/uL (4.2-5.4); WHITE BLOOD CELL COUNT,WBC 13.8 10^3/uL (5.0-10.0)
[2023-10-15] MEDS: Calcium Carbonate 500 MG Tab.Chew PO SCH (12:19)
[2023-10-15] MEDS: Magnesium Oxide 400 MG Tab PO ONE (12:19)
[2023-10-15 12:29] LABS: CALCIUM 8.8 mg/dL (8.5-10.1); CREATININE 0.88 mg/dL (0.55-1.02); EST CRCL DRUG DOSING (CG) 84.39 mL/min; MAGNESIUM 2.3 mg/dL (1.8-2.4)
[2023-10-15 12:31] LABS: LYMPHOCYTES PERCENT MAN 4 % (20-50); MONOCYTES PERCENT MAN 7 % (2-8); SEG NEUTROPHILS PERCENT MAN 89 % (42-75)
[2023-10-16 06:38] LABS: ALBUMIN 3.2 g/dL (3.4-5.0); ANION GAP 13.6 mEq/L (7-13); BILIRUBIN TOTAL 0.2 mg/dL (0.2-1.0); BUN/CREATININE RATIO 10.4 (No establ ref range); CALCIUM 8.4 mg/dL (8.5-10.1); CREATININE 0.77 mg/dL (0.55-1.02); EST CRCL DRUG DOSING (CG) 96.45 mL/min; MAGNESIUM 2.1 mg/dL (1.8-2.4); POTASSIUM,K 4.6 mmol/L (3.5-5.1); PROTEIN TOTAL,TP 6.6 g/dL (6.4-8.2)
[2023-10-16 06:40] LABS: A/G RATIO 0.94
[2023-10-16 06:49] LABS: BASOPHILS PERCENT AUTO 0.1 % (0.0-1.0); HEMATOCRIT 40.4 % (37.0-47.0); HEMOGLOBIN 12.9 g/dL (12.0-16.0); LYMPHOCYTES PERCENT AUTO 9.4 % (20.5-50.1); MEAN CORPUSCULAR HEMOGLOBIN 28.4 pg (27.0-34.0); MEAN CORPUSCULAR HGB CONC 31.9 g/dL (33.0-35.0); MEAN CORPUSCULAR VOLUME 88.8 fL (80-100); MONOCYTES PERCENT AUTO 8.6 % (2-8); NEUTROPHILS PERCENT AUTO 81.9 % (42.2-75.2); PLATELET COUNT,PLT 332 10^3/uL (150-450); RED BLOOD CELL COUNT 4.55 10^6/uL (4.2-5.4); WHITE BLOOD CELL COUNT,WBC 11.9 10^3/uL (5.0-10.0)
[2023-10-16 10:39] VITALS: BP 120/74; PULSE 91
[2023-10-16] MEDS: Azithromycin 250 MG Tab PO ONE (11:14)
== END 2023-10-16 11:00 | disposition home or self-care (01) ==
LOC: DL.ED 08:17 → UNDOADMOB 11:47 → DL.MS 11:47
PROVIDERS: ADMIT Emergency Medicine; ATTEND Emergency Medicine
DX: J45.52 Severe persistent asthma with status asthmaticus (principal); E87.6 Hypokalemia; F17.210 Nicotine dependence, cigarettes, uncomplicated; E83.51 Hypocalcemia; Z79.899 Other long term (current) drug therapy
CPT/HCPCS: 0241U; 36415; 71045; 71046; 71275; 80048; 80053; 82306; 83735; 83880; 84145; 84484; 84703; 85007; 85025; 85027; 93005; 93010; 94640; 94664; 96365; 96366; 96367; 96375; 96376; 99284; 99285-25; A9270-GY; G0378; J0456; J0696; J2930; J3475; J3490; J7030; J7050; J7512; J7620-GY; Q9967

== ENCOUNTER 2024-01-01 21:00 | Emergency (ER) | payer BC, MEDICAID ==
[2024-01-01] MEDS: Dexamethasone 4 MG/ML SDV IVPUSH ONE (21:29)
[2024-01-01] MEDS: Magnesium Sulfate/Water 2 GM in Premix Bag 1 BAG IV ONE (21:31)
[2024-01-01] MEDS: Albuterol/Ipratropium 3.0-0.5 MG/3 ML Neb Soln NEB ONE (21:34)
[2024-01-01] MEDS: Sodium Chloride 0.9% 1,000 ML IV ONE (21:36)
[2024-01-01] MEDS: Azithromycin 250 MG Tab PO ONE (22:17)
[2024-01-01 22:26] VITALS: BP 120/81; PULSE 114
== END 2024-01-01 22:20 | disposition home or self-care (01) ==
LOC: DL.ED 21:00
DX: J18.9 Pneumonia, unspecified organism (principal); J45.41 Moderate persistent asthma with (acute) exacerbation; Z86.16 Personal history of COVID-19; Z90.49 Acquired absence of other specified parts of digestive tract
CPT/HCPCS: 94640; 96374; 96375; 99283-25; 99284; A9270-GY; J1100; J3475; J7030; J7620-GY

== ENCOUNTER 2024-05-09 10:46 | Emergency (ER) | payer SELFPAY ==
[2024-05-09] MEDS: Take Home: Amoxicillin/Clavulanate K 875-125 MG Tab, 6 Tab Pack PO ONE (11:37)
[2024-05-09] MEDS: Dexamethasone 4 MG/ML SDV IM ONE (11:37)
[2024-05-09] MEDS: Amoxicillin/Clavulanate K 875-125 MG Tab PO ONE (11:37)
[2024-05-09 11:45] VITALS: BP 108/76; PULSE 72
== END 2024-05-09 11:44 | disposition home or self-care (01) ==
LOC: DL.ED 10:46
DX: J02.0 Streptococcal pharyngitis (principal); J45.909 Unspecified asthma, uncomplicated; Z90.49 Acquired absence of other specified parts of digestive tract; F17.210 Nicotine dependence, cigarettes, uncomplicated; Z79.899 Other long term (current) drug therapy
CPT/HCPCS: 87430; 96372; 99283; A9270; J1100

== ENCOUNTER 2024-06-11 17:43 | Emergency (ER) | payer SELFPAY ==
[2024-06-11 17:59] VITALS: BP 112/78; PULSE 114
[2024-06-11] MEDS: Dexamethasone 6 MG TABLET PO ONE (18:12)
[2024-06-11] MEDS: Take Home: Albuterol 0.083% 2.5 MG/3 ML Neb Soln, 5 Neb Pack NEB ONE (18:16)
== END 2024-06-11 18:25 | disposition home or self-care (01) ==
LOC: DL.ED 17:43
DX: J18.9 Pneumonia, unspecified organism (principal); J45.41 Moderate persistent asthma with (acute) exacerbation; Z79.899 Other long term (current) drug therapy; Z87.891 Personal history of nicotine dependence
CPT/HCPCS: 99284; A9270-GY; J8540

== ENCOUNTER 2024-07-25 21:29 | Emergency (ER) | payer SELFPAY ==
[2024-07-25] MEDS ORDERED: Sodium Chloride 0.9% 10 ML Syringe FLUSH PRN (22:27)
[2024-07-25] MEDS: Albuterol/Ipratropium 3.0-0.5 MG/3 ML Neb Soln NEB ONE ×2 (22:29→23:14)
[2024-07-25 22:44] LABS: BASOPHILS PERCENT AUTO 0.2 % (0.0-1.0); EOSINOPHILS PERCENT AUTO 2.7 % (1.0-3.0); HEMATOCRIT 38.3 % (37.0-47.0); HEMOGLOBIN 12.6 g/dL (12.0-16.0); MEAN CORPUSCULAR HEMOGLOBIN 28.8 pg (27.0-34.0); MEAN CORPUSCULAR HGB CONC 32.9 g/dL (33.0-35.0); MEAN CORPUSCULAR VOLUME 87.4 fL (80-100); MONOCYTES PERCENT AUTO 6.8 % (2-8); NEUTROPHILS PERCENT AUTO 73.3 % (42.2-75.2); PLATELET COUNT,PLT 299 10^3/uL (150-450); RED BLOOD CELL COUNT 4.38 10^6/uL (4.2-5.4); WHITE BLOOD CELL COUNT,WBC 13.2 10^3/uL (5.0-10.0)
[2024-07-25 23:01] LABS: A/G RATIO 0.9; ALBUMIN 3.6 g/dL (3.4-5.0); ANION GAP 13.3 mEq/L (7-13); BILIRUBIN TOTAL 0.3 mg/dL (0.2-1.0); BUN/CREATININE RATIO 18.1 (No establ ref range); CALCIUM 8.5 mg/dL (8.5-10.1); CREATININE 0.72 mg/dL (0.55-1.02); EST CRCL DRUG DOSING (CG) 102.25 mL/min; POTASSIUM,K 3.3 mmol/L (3.5-5.1); PROTEIN TOTAL,TP 7.5 g/dL (6.4-8.2)
[2024-07-25] MEDS: predniSONE 20 MG Tab PO ONE (23:11)
[2024-07-25] MEDS: Take Home: Albuterol/Ipratropium 3.0-0.5 MG/3 ML Neb Soln, 4 Neb Pack NEB ONE (23:39)
[2024-07-25 23:48] VITALS: BP 107/75; PULSE 100
== END 2024-07-25 23:45 | disposition home or self-care (01) ==
LOC: DL.ED 21:29
DX: J45.31 Mild persistent asthma with (acute) exacerbation (principal); J20.9 Acute bronchitis, unspecified; F17.210 Nicotine dependence, cigarettes, uncomplicated; Z90.49 Acquired absence of other specified parts of digestive tract; Z79.51 Long term (current) use of inhaled steroids; Z79.52 Long term (current) use of systemic steroids; Z79.899 Other long term (current) drug therapy
CPT/HCPCS: 36415; 71045; 80053; 85025; 87428; 99283; A9270; J7512; 99284; J7620-GY

== ENCOUNTER 2024-11-16 14:19 | Emergency (ER) | payer SELFPAY ==
[2024-11-16 14:53] VITALS: BP 133/89; PULSE 86
== END 2024-11-16 15:10 | disposition home or self-care (01) ==
LOC: DL.ED 14:19
DX: M62.838 Other muscle spasm (principal); J45.909 Unspecified asthma, uncomplicated; Z79.51 Long term (current) use of inhaled steroids; Z79.899 Other long term (current) drug therapy
CPT/HCPCS: 99282; 99284

== ENCOUNTER 2025-02-13 17:17 | Emergency (ER) | payer SELFPAY ==
[2025-02-13] MEDS: Dexamethasone 4 MG/ML SDV IM ONE (17:34)
[2025-02-13] MEDS: Take Home: Albuterol/Ipratropium 3.0-0.5 MG/3 ML Neb Soln, 4 Neb Pack NEB ONE (17:56)
[2025-02-13 18:04] VITALS: BP 124/87; PULSE 121
== END 2025-02-13 18:00 | disposition home or self-care (01) ==
LOC: DL.ED 17:17
DX: J45.901 Unspecified asthma with (acute) exacerbation (principal); F17.210 Nicotine dependence, cigarettes, uncomplicated; Z79.51 Long term (current) use of inhaled steroids; Z79.899 Other long term (current) drug therapy; Z90.49 Acquired absence of other specified parts of digestive tract
CPT/HCPCS: 96372; 99284; A9270; J1100; J3535; J7620